=== PATIENT | female | born 1970 | race American Indian/Alaskan Native ===

== ENCOUNTER 2017-09-27 16:21 | Emergency (ER) | payer OTHER ==
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
[2017-09-27] MEDS ORDERED: FLEXERIL PO ONE (21:08)
[2017-09-27] MEDS ORDERED: NORCO 5/325 PO ONE (21:08)
[2017-09-28 00:51] VITALS: BP 132/87
== END 2017-09-28 00:51 | disposition home or self-care (01) ==
LOC: ED 16:21
DX: S10.93XA Contusion of unspecified part of neck, initial encounter (principal); N64.4 Mastodynia; M54.5 Low back pain; I10 Essential (primary) hypertension; Z79.82 Long term (current) use of aspirin; V89.2XXA Person injured in unspecified motor-vehicle accident, traffic, initial encounter; Y93.89 Activity, other specified; Y92.89 Other specified places as the place of occurrence of the external cause; Y99.8 Other external cause status
CPT/HCPCS: 99282

== ENCOUNTER 2018-09-05 20:54 | Inpatient (IN) | payer SELFPAY ==
--- NOTE | 2018-09-05 21:02 | Emergency Department Report ---
ED Neuro Deficit HPI - General Chief Complaint: Neuro Symptoms/Deficit Stated Complaint: STROKE Source: patient, EMS Mode of arrival: Stretcher Limitations: No Limitations - Related Data Home Medications: Previous Rx's Medication Instructions Recorded Last Taken Type Aspirin [Aspirin TAB] 325 mg PO QDAY #30 tablet 09/24/14 Unknown Rx Lisinopril [Zestril TAB] 30 mg PO QDAY #30 tablet 09/24/14 Unknown Rx Simvastatin (Nf) [Zocor TAB] 20 mg PO QHS #30 tablet 09/24/14 Unknown Rx amLODIPine [Norvasc] 10 mg PO QDAY #30 tablet 09/24/14 Unknown Rx Ibuprofen [Motrin] 800 mg PO Q8HR PRN #12 tablet 09/27/17 Unknown Rx Methocarbamol [Robaxin TAB] 750 mg PO Q8H PRN #12 tablet 09/27/17 Unknown Rx Allergies/Adverse Reactions: Allergies Allergy/AdvReac Type Severity Reaction Status Date / Time No Known Allergies Allergy Verified 09/27/17 16:32 ED Review of Systems ROS: Stated complaint: STROKE Other details as noted in HPI ED Past Medical Hx - Past Medical History Hx Hypertension: Yes Hx Congestive Heart Failure: No Hx Diabetes: No Hx Asthma: No Hx COPD: No Hx HIV: No - Surgical History Additional Surgical History: breast reduction - Social History Smoking Status: Never Smoker Substance Use Type: None - Medications Home Medications: Home Medications Medication Instructions Recorded Confirmed Last Taken Type Aspirin [Aspirin TAB] 325 mg PO QDAY #30 tablet 09/24/14 Unknown Rx Lisinopril [Zestril TAB] 30 mg PO QDAY #30 tablet 09/24/14 Unknown Rx Simvastatin (Nf) [Zocor TAB] 20 mg PO QHS #30 tablet 09/24/14 Unknown Rx amLODIPine [Norvasc] 10 mg PO QDAY #30 tablet 09/24/14 Unknown Rx Ibuprofen [Motrin] 800 mg PO Q8HR PRN #12 tablet 09/27/17 Unknown Rx Methocarbamol [Robaxin TAB] 750 mg PO Q8H PRN #12 tablet 09/27/17 Unknown Rx ED Neuro Physical Exam - General Limitations: No Limitations Suspected Stroke: Yes - NIHSS Assessment Interval: Baseline 1a. Level of Consciousness: alert/keenly responsive 1b. LOC Questions: answers both correctly 1c. LOC Commands: performs tasks correctly 2. Best Gaze: normal 3. Visual: no visual loss 4. Facial Palsy: normal symmetrical movement 5b. Motor Arm Right: no drift 5a. Motor Arm Left: no drift 6a. Motor Leg Left: no drift 6b. Motor Leg Right: no drift 7. Limb Ataxia: absent 8. Sensory: normal 9. Best Language: no aphasia 10. Dysarthria: normal 11. Extinction/Inattention: no abnormality Total Score: 0 Stroke Severity: No Stroke Symptoms - Medical Decision Making [facility] Date of Service: 09/05/18 Impression: TIA vs small stroke: Patient had about an hour of left sided weakness/numbness. Symptoms have resolved therefore no acute intervention but recommend further work up. - - - Not a tpa candidate due to: symptoms have resolved Presentation is not suggestive of Large Vessel Occlusive Disease. Thrombectomy would not be recommended. Differential Diagnosis: 1. Cardioembolic 2. Small vessel disease/lacune 3. Thromboembolic, [id number] mechanism 4. Hypercoagulable state-related infarct 5. Transient ischemic attack Comments: LKN: 20:00 Door time: 20:54 [facility] contacted: 20:48 [facility] at bedside:20:53 NIHSS assessment time: 20:53 Recommendations: -ASA -Permissive htn up to 220/120 -Check Hgb A1c and lipid panel -dysphagia screen -Telemetry -Glucose control per primary team, avoid hypo- and hyperglycemia -DVT prophylaxis -PT/OT/Speech Inpatient neurology consultation Inpatient stroke evaluation as per Neurology/ Internal Medicine Discussed with ED MD Please call with questions Micaela Sellers, [facility] #[phone] --------- CC speech changes and left sided weakness/numbness History of Present Illness 48 yo F with history of stroke with mild residual left sided weakness who presents with worsening of her left sided weakness/numbness and slurred speech that started at 20:00. She was having an argument with a family member and noticed that change i her left hand in the it was weaker and numb. While on the way she noticed her symptoms improve in the ambulance and now feels back to her baseline. Diagnostic: CT head: pending Exam: NIHSS score: 0 Medical Decision Making: - Extensive number of diagnosis or management options are considered above. - Extensive amount of complex data reviewed. - High risk of complication and/or morbidity or mortality are associated with differential diagnostic considerations above. - There may be Uncertain outcome and increased probability of prolonged functional impairment or high probability of severe prolonged functional impairment associated with some of these differential diagnosis. Medical Data Reviewed: 1.Data reviewed include clinical labs, radiology, Medical Tests; 2.Tests results discussed w/performing or interpreting physician; 3.Obtaining/reviewing old medical records; 4.Obtaining case history from another source; 5.Independent review of image, tracing or specimen. Patient was informed the Neurology Consult would happen via telehealth (remote video) and consented to receiving care in this manner. Critical care attestation.: If time is entered above; I have spent that time in minutes in the direct care of this critically ill patient, excluding procedure time. ED Disposition Clinical Impression: CVA (cerebral infarction) Disposition: DC-09 OP ADMIT IP TO THIS HOSP Is pt being admited?: Yes Condition: Stable
[2018-09-05 21:29] LABS: Basophils # (Auto) 0.1 K/mm3 (0.0-0.1); Basophils % (Auto) 0.7 % (0.0-1.8); Eosinophils # (Auto) 0.1 K/mm3 (0.0-0.4); Eosinophils % (Auto) 1.5 % (0.0-4.3); Hematocrit 41.6 % (30.3-42.9); Hemoglobin 14.4 gm/dl (10.1-14.3); Lymphocytes # (Auto) 1.2 K/mm3 (1.2-5.4); Lymphocytes % (Auto) 17.8 % (13.4-35.0); Mean Corpuscular HGB Conc 35 % (30-34); Mean Corpuscular Hemoglobin 30 pg (28-32); Mean Corpuscular Volume 88 fl (79-97); Monocytes # (Auto) 0.3 K/mm3 (0.0-0.8); Monocytes % (Auto) 4.5 % (0.0-7.3); Platelet Count 354 K/mm3 (140-440); Red Blood Count 4.73 M/mm3 (3.65-5.03); Red Cell Distribution Width 12.7 % (13.2-15.2)
--- NOTE | 2018-09-05 21:32 | Cat Scan Report ---
PROCEDURE: CT HEAD/BRAIN WO CON TECHNIQUE: CT head without contrast HISTORY: neuro deficits <6hrs or sx present upon awakening COMPARISONS: FINDINGS: No acute intra or extra-axial hemorrhage identified. No evidence for midline shift or mass effect. Ve ntricles and sulci are within normal limits. Mild asymmetry noted of the lateral ventricles. Bony myra varium is intact. IMPRESSION: Negative CT head This document is electronically signed by Sundar Alan MD., September 05 2018 09:30:03 PM ET
[2018-09-05 21:40] LABS: INR 0.84 (0.87-1.13); Partial Thromboplastin Time 31.6 Sec. (24.2-36.6)
[2018-09-05 22:07] LABS: BUN/Creatinine Ratio 14; Blood Urea Nitrogen 35 mg/dL (7-17); Hemolysis Index 6
[2018-09-05] MEDS ORDERED: BABY ASPIRIN PO ONE (22:14)
[2018-09-05] MEDS ORDERED: NACL 0.9% 1000 ML 1,000 ML IV ONE (22:19)
[2018-09-05] MEDS ORDERED: HumuLIN R IV ONE (22:19)
--- NOTE | 2018-09-05 22:28 | Emergency Department Report ---
ED Neuro Deficit HPI - General Chief Complaint: Neuro Symptoms/Deficit Stated Complaint: STROKE Time Seen by Provider: 09/05/18 20:59 Source: patient, EMS Mode of arrival: Stretcher Limitations: No Limitations - History of Present Illness Initial Comments: CC: "I knew I had a stroke." HPI: Mrs. Emmanuel is a 48 yo female with hx fo CVA, HTN and DM who presents with left sided weakness, facial droop and trouble with speech suddenly at 8:00 PM. The symptoms occurred while she was yelling at her daughter's to get ready for bed. She had weakness and numbness in her hand initially. Symptoms also observed by EMS but markedly improved upon arrival. Denies headache. Denies chest pain. Had been in normal state of health. She feels as if she is getting better. Location: speech, left face, left arm Presenting Symptoms: Present: Weak/Paralyzed One Side, Facial Droop/Numbness, Unable to Speak Clearly History of same: Yes Place: home Severity: moderate Quality: weak Improves With: time On Anticoagulants: No Context: sudden onset Associated Symptoms: denies other symptoms Treatments Prior to Arrival: oxygen - Related Data Home Medications: Previous Rx's Medication Instructions Recorded Last Taken Type Aspirin [Aspirin TAB] 325 mg PO QDAY #30 tablet 09/24/14 Unknown Rx Lisinopril [Zestril TAB] 30 mg PO QDAY #30 tablet 09/24/14 Unknown Rx Simvastatin (Nf) [Zocor TAB] 20 mg PO QHS #30 tablet 09/24/14 Unknown Rx amLODIPine [Norvasc] 10 mg PO QDAY #30 tablet 09/24/14 Unknown Rx Ibuprofen [Motrin] 800 mg PO Q8HR PRN #12 tablet 09/27/17 Unknown Rx Methocarbamol [Robaxin TAB] 750 mg PO Q8H PRN #12 tablet 09/27/17 Unknown Rx Allergies/Adverse Reactions: Allergies Allergy/AdvReac Type Severity Reaction Status Date / Time No Known Allergies Allergy Verified 09/27/17 16:32 ED Review of Systems ROS: Stated complaint: STROKE Other details as noted in HPI Comment: All other systems reviewed and negative Constitutional: denies: fever, malaise Respiratory: denies: cough Cardiovascular: denies: chest pain ED Past Medical Hx - Past Medical History Previous Medical History?: Yes Hx Hypertension: Yes Hx Congestive Heart Failure: No Hx Diabetes: No Hx Asthma: No Hx COPD: No Hx HIV: No - Surgical History Past Surgical History?: Yes Additional Surgical History: breast reduction - Family History Family history: other (unknown per patient) - Social History Smoking Status: Never Smoker Substance Use Type: None Other Social History: She works in a warehouse, she lives with her and 2 daughters - Medications Home Medications: Home Medications Medication Instructions Recorded Confirmed Last Taken Type Aspirin [Aspirin TAB] 325 mg PO QDAY #30 tablet 09/24/14 Unknown Rx Lisinopril [Zestril TAB] 30 mg PO QDAY #30 tablet 09/24/14 Unknown Rx Simvastatin (Nf) [Zocor TAB] 20 mg PO QHS #30 tablet 09/24/14 Unknown Rx amLODIPine [Norvasc] 10 mg PO QDAY #30 tablet 09/24/14 Unknown Rx Ibuprofen [Motrin] 800 mg PO Q8HR PRN #12 tablet 09/27/17 Unknown Rx Methocarbamol [Robaxin TAB] 750 mg PO Q8H PRN #12 tablet 09/27/17 Unknown Rx ED Neuro Physical Exam - General Limitations: No Limitations General appearance: alert, in no apparent distress, other (slurred speech and facial droop evident) Suspected Stroke: Yes - Head Head exam: Present: atraumatic, normocephalic - Eye Eye exam: Present: normal appearance - ENT ENT exam: Present: mucous membranes moist - Neck Neck exam: Present: normal inspection, full ROM - Respiratory Respiratory exam: Present: normal lung sounds bilaterally. Absent: respiratory distress, wheezes, rales, rhonchi - Cardiovascular Cardiovascular Exam: Present: regular rate, normal rhythm, normal heart sounds. Absent: systolic murmur, diastolic murmur, rubs, gallop - GI/Abdominal GI/Abdominal exam: Present: soft, normal bowel sounds. Absent: distended, tenderness, guarding, rebound - Extremities Exam Extremities exam: Present: normal inspection - Back Exam Back exam: Present: normal inspection - Neurological Exam Neurological exam: Present: alert, oriented X3 - NIHSS Assessment Interval: Baseline 1a. Level of Consciousness: alert/keenly responsive 1b. LOC Questions: answers both correctly 1c. LOC Commands: performs tasks correctly 2. Best Gaze: normal 3. Visual: no visual loss 4. Facial Palsy: normal symmetrical movement 5b. Motor Arm Right: no drift 5a. Motor Arm Left: no drift 6a. Motor Leg Left: no drift 6b. Motor Leg Right: no drift 7. Limb Ataxia: absent 8. Sensory: normal 9. Best Language: mild/moderate aphasia 10. Dysarthria: mild/moderate dysarthria 11. Extinction/Inattention: no abnormality Total Score: 2 Stroke Severity: Minor Stroke - Psychiatric Psychiatric exam: Present: normal affect, normal mood - Skin Skin exam: Present: warm, dry, intact, normal color. Absent: rash ED Course Vital Signs 09/05/18 09/05/18 21:16 21:45 Pulse Rate 102 H 97 H Respiratory 13 14 Rate Blood Pressure 189/99 189/99 O2 Sat by Pulse 99 100 Oximetry - Lab Data Result diagrams: 09/05/18 21:17 09/05/18 21:17 Lab Results 09/05/18 09/05/18 09/05/18 Range/Units 21:17 21:17 21:17 WBC 6.9 (4.5-11.0) K/mm3 RBC 4.73 (3.65-5.03) M/mm3 Hgb 14.4 H (10.1-14.3) gm/dl Hct 41.6 (30.3-42.9) % MCV 88 (79-97) fl MCH 30 (28-32) pg MCHC 35 H (30-34) % RDW 12.7 L (13.2-15.2) % Plt Count 354 (140-440) K/mm3 Lymph % (Auto) 17.8 (13.4-35.0) % [place] % (Auto) 4.5 (0.0-7.3) % Eos % (Auto) 1.5 (0.0-4.3) % Baso % (Auto) 0.7 (0.0-1.8) % Lymph # 1.2 (1.2-5.4) K/mm3 [place] # 0.3 (0.0-0.8) K/mm3 Eos # 0.1 (0.0-0.4) K/mm3 Baso # 0.1 (0.0-0.1) K/mm3 Seg Neutrophils % 75.5 H (40.0-70.0) % Seg Neutrophils # 5.2 (1.8-7.7) K/mm3 PT 12.0 L (12.2-14.9) Sec. INR 0.84 L (0.87-1.13) APTT 31.6 (24.2-36.6) Sec. Thrombin Time (15.1-19.6) Sec. Sodium 124 L (137-145) mmol/L Potassium 3.0 L (3.6-5.0) mmol/L Chloride 81.1 L (98-107) mmol/L Carbon Dioxide 25 (22-30) mmol/L Anion Gap 21 mmol/L BUN 35 H (7-17) mg/dL Creatinine 2.5 H (0.7-1.2) mg/dL Estimated GFR 25 ml/min BUN/Creatinine Ratio 14 % Glucose 1058 H* (65-100) mg/dL Calcium 9.0 (8.4-10.2) mg/dL Troponin T < 0.010 (0.00-0.029) ng/mL 09/05/18 Range/Units 21:17 WBC (4.5-11.0) K/mm3 RBC (3.65-5.03) M/mm3 Hgb (10.1-14.3) gm/dl Hct (30.3-42.9) % MCV (79-97) fl MCH (28-32) pg MCHC (30-34) % RDW (13.2-15.2) % Plt Count (140-440) K/mm3 Lymph % (Auto) (13.4-35.0) % [place] % (Auto) (0.0-7.3) % Eos % (Auto) (0.0-4.3) % Baso % (Auto) (0.0-1.8) % Lymph # (1.2-5.4) K/mm3 [place] # (0.0-0.8) K/mm3 Eos # (0.0-0.4) K/mm3 Baso # (0.0-0.1) K/mm3 Seg Neutrophils % (40.0-70.0) % Seg Neutrophils # (1.8-7.7) K/mm3 PT (12.2-14.9) Sec. INR (0.87-1.13) APTT (24.2-36.6) Sec. Thrombin Time 19.3 (15.1-19.6) Sec. Sodium (137-145) mmol/L Potassium (3.6-5.0) mmol/L Chloride (98-107) mmol/L Carbon Dioxide (22-30) mmol/L Anion Gap mmol/L BUN (7-17) mg/dL Creatinine (0.7-1.2) mg/dL Estimated GFR ml/min BUN/Creatinine Ratio % Glucose (65-100) mg/dL Calcium (8.4-10.2) mg/dL Troponin T (0.00-0.029) ng/mL 09/05/18 22:32 EKG obtained 2144 Normal sinus rhythm rate 95 beats a minute normal axis normal intervals no ST-T signs of ischemia positive LVH - Medical Decision Making Mrs. Emmanuel presents with TIA and hyperosmolar hyperglycemic syndrome. HHS Due to rapidly improving symptoms, TPA is not indicated. Secondly, I suspect neurological symptoms will improve with control of severe hyperglycemia. Hyperglycemia address with IV fluid and regular insulin. Admitted to the hospitalist service in fair condition. Given aspirin. Severely elevated blood pressure addressed with IV labetalol. Critical Care Time: Yes Critical care time in (mins) excluding proc time.: 40 Critical care attestation.: If time is entered above; I have spent that time in minutes in the direct care o f this critically ill patient, excluding procedure time. 40 minutes of critical care time excluding procedures were used in the care of the patient. Patient required multiple assessments and interventions. I reviewed the electronic medical record. I spoke with consultants involved in the care of the patient. I considered a stretcher immediately. I obtained history from EMS. I performed in a stroke scale alongside till a neurologist. I reassessed patient upon return from CT. ED Disposition Clinical Impression: CVA (cerebral infarction), TIA (transient ischemic attack), ERENDIRA (acute kidney injury), Hyperglycemic hyperosmolar nonketotic coma Disposition: 09 OP ADMIT IP TO THIS HOSP Is pt being admited?: Yes Does the pt Need Aspirin: No Condition: Stable
[2018-09-05] MEDS ORDERED: NORMODYNE IV ONE (22:30)
[2018-09-05] MEDS ORDERED: HumuLIN R 100 UNITS in NACL 0.9% 99 ML IV SCH (23:00)
[2018-09-05] MEDS ORDERED: DULCOLAX PR PRN (23:18)
[2018-09-05] MEDS ORDERED: REGLAN IV PRN (23:18)
[2018-09-05] MEDS ORDERED: ZOFRAN IV PRN (23:18)
[2018-09-05] MEDS ORDERED: TYLENOL PO PRN (23:18)
[2018-09-05] MEDS ORDERED: SODIUM CHLORIDE FLUSH SYRINGE 10 ML IV PRN (23:18)
[2018-09-05] MEDS ORDERED: MILK OF MAGNESIA PO PRN (23:18)
[2018-09-05] MEDS ORDERED: D50W (25GM) Syringe IV PRN (23:22)
[2018-09-05] MEDS ORDERED: APRESOLINE IV PRN (23:24)
--- NOTE | 2018-09-05 23:29 | History and Physical Report ---
History of Present Illness Date of examination: 09/05/18 History of present illness: 48-year-old woman with a history of hypertension, hyperlipidemia, diabetes, patient in denial that she does not have diabetes because emergency room with complaint of slurred speech and left arm weakness. She is brought to the emergency room, her symptoms have improved Review of systems Constitutional: no weight loss, chills, fever Ears, eyes, nose, mouth and throat: no nasal congestion, no nasal discharge, no sinus pressure, no vision change, no red eye. Neck: No neck pain or rigidity. Cardiovascular: no palpitations, chest pain Respiratory: no cough, shortness of breath Gastrointestinal: no hematochezia, abdominal pain Genitourinary : no frequency , no hematuria Musculoskeletal: no joint swelling or muscle ache Integumentary: no rash, no pruritis Neurological: no parathesias Endocrine: no cold or heat intolerance, no polyuria or polydipsia Hematologic/Lymphatic: no easy bruising, no easy bleeding, no gland swelling Allergic/Immunologic: no urticaria, no angioedema. PAST MEDICAL HISTORY:hypertension, hyperlipidemia, diabetes PAST SURGICAL HISTORY: Tubal ligation, breast reduction SOCIAL HISTORY: Denies alcohol, drugs, tobacco FAMILY HISTORY: Hypertension Medications and Allergies Allergies Allergy/AdvReac Type Severity Reaction Status Date / Time No Known Allergies Allergy Verified 09/27/17 16:32 Home Medications Medication Instructions Recorded Confirmed Last Taken Type Aspirin [Aspirin TAB] 325 mg PO QDAY #30 tablet 09/24/14 Unknown Rx Lisinopril [Zestril TAB] 30 mg PO QDAY #30 tablet 09/24/14 Unknown Rx Simvastatin (Nf) [Zocor TAB] 20 mg PO QHS #30 tablet 09/24/14 Unknown Rx amLODIPine [Norvasc] 10 mg PO QDAY #30 tablet 09/24/14 Unknown Rx Ibuprofen [Motrin] 800 mg PO Q8HR PRN #12 tablet 09/27/17 Unknown Rx Methocarbamol [Robaxin TAB] 750 mg PO Q8H PRN #12 tablet 09/27/17 Unknown Rx Active Meds: Active Medications Insulin Human Regular 100 (units/ Sodium Chloride) 100 mls @ 7 mls/hr IV TITR CHIDI; Protocol Exam - Physical Exam Narrative exam: General Apperance: The patient lying in bed, breathing comfortable HEENT: Normocephalic, atraumatic. Pupils equally round and reactive to light, EOMI, no sclericterus or JVD or thyromegaly or nodule. , no carotid bruit, mucous membranes moist, no exudate or erythema Heart: S1-S2, regular is rhythm Lungs: Clear to auscultation bilaterally, breathing comfortable Abdomen: Positive bowel sounds, soft, nontender, nondistended, no organomegaly Extremities: No edema cyanosis clubbing Skin: no rash, nodule, warm and dry Neuro: cranial nerves 2-12 intact, speech is fluent, motor/sensory intact - Constitutional Vitals: Temp Pulse Resp BP Pulse Ox 89 16 166/97 98 09/05/18 23:15 09/05/18 23:15 09/05/18 23:15 09/05/18 23:15 Results - Labs CBC & Chem 7: 09/05/18 21:17 09/05/18 21:17 Labs: Abnormal lab results 09/05/18 09/05/18 09/05/18 Range/Units 21:17 21:17 21:17 Hgb 14.4 H (10.1-14.3) gm/dl MCHC 35 H (30-34) % RDW 12.7 L (13.2-15.2) % Seg Neutrophils % 75.5 H (40.0-70.0) % PT 12.0 L (12.2-14.9) Sec. INR 0.84 L (0.87-1.13) Sodium 124 L (137-145) mmol/L Potassium 3.0 L (3.6-5.0) mmol/L Chloride 81.1 L (98-107) mmol/L BUN 35 H (7-17) mg/dL Creatinine 2.5 H (0.7-1.2) mg/dL Glucose 1058 H* (65-100) mg/dL - Imaging and Cardiology CT Scan - head: report reviewed Assessment and Plan Assessment TIA HONK Acute renal failure Pseudohyponatremia Hypokalemia hypertension uncontrolled Hyperlipidemia Plan Admit to medicine Obtain MRI of the head, carotid Doppler, echo Do neurochecks, swallow screen Consult neurology, PT/OT, monitor kidney function Start DKA protocol with insulin drip, nothing by mouth Monitor fingersticks, electrolytes, check hemoglobin A1c Continue appropriate outpatient medication, DVT prophylaxis
[2018-09-05] MEDS ORDERED: K-DUR PO ONE ×2 (23:35→23:58)
[2018-09-05] MEDS ORDERED: D5/0.45NS 1,000 ML IV SCH (23:45)
[2018-09-06] MEDS ORDERED: K-DUR PO ONE ×3 (00:25→09:37)
[2018-09-06 00:56] LABS: Bilirubin,Urine NEG (Negative); Blood,Urine SM (Negative); Color,Urine Colorless (Yellow); Urobilinogen,Urine < 2.0 mg/dL (<2.0)
[2018-09-06] MEDS ORDERED: D5W/0.45% NACL/KCL 20 MEQ 20 MEQ/1,000 ML BAG IV SCH (01:00)
[2018-09-06] MEDS ORDERED: KCL 10MEQ/100ML 40 MEQ/400 ML BAG IV ONE (01:04)
[2018-09-06] MEDS ORDERED: NACL 0.9% 500 ML 500 ML ONE (01:14)
[2018-09-06] MEDS: KCL 10MEQ/100ML 10 MEQ/100 ML BAG IV SCH ×4 (01:19→05:17)
[2018-09-06] MEDS ORDERED: NACL 0.9% 500 ML IV ONE (03:00)
[2018-09-06 03:31] LABS: Calcium 8.5 mg/dL (8.4-10.2)
[2018-09-06] MEDS ORDERED: NACL 0.9% 250ML 250 ML ONE (03:31)
[2018-09-06] MEDS ORDERED: NACL 0.9% 250ML 250 ML IV ONE (04:23)
[2018-09-06 04:46] LABS: Calcium 8.3 mg/dL (8.4-10.2)
[2018-09-06 05:35] LABS: Chol/HDL Ratio 4.66 %
[2018-09-06] MEDS ORDERED: D5W/0.45% NACL/KCL 20 MEQ 20 MEQ/1,000 ML BAG IV ONE (05:54)
--- NOTE | 2018-09-06 08:35 | Progress Note ---
Assessment and Plan Assessment and plan: --Hyperosmolar nonketotic state; On insulin drip, patient's blood sugars aren't reasonable levels, no acidosis, no ketosis Start ADA diet, DC insulin drip, Accu-Chek sliding scale coverage, long-acting insulin start with 20 units twice a day,increase as needed, change IV fluids to normal saline Check hemoglobin A1c, Diabetic diet, nutrition consult --Hyponatremia; probably pseudohyponatremia secondary to hyperglycemia --Hypokalemia; replace per protocol and monitor levels --TIA/CVA; Neuro workup is in progress, continue neuro checks Swallow screen, PT and OT rehabilitation Follow neurology evaluation and recommendations --Acute kidney injury; secondary to ATN Vigorous IV hydration, monitor renal function, avoid nephrotoxins Consistent nephrology evaluation if needed --Dyslipidemia; lipid-lowering medications, low-cholesterol diet --Malignant hypertension; present on admission Blood pressures moderate control, continue current antihypertensives Add when necessary medications --Obesity; BMI 30.2, advised weight reduction when medically stable --DVT prophylaxis; Lovenox Closely monitor the patient and adjust the management as needed If patient feels better next 1 or 2 hours We will downgrade from ICU to telemetry/medical floor Critical care time 35 minutes History Interval history: Patient seen and examined in ER awaiting bed assignment Admitted with hyperosmolar nonketotic state on insulin drip Patient's blood sugars are reasonable level Also had stuttering speech and left arm weakness Symptoms significantly improved Patient feels better mild headache Weakness significantly improved Alert awake oriented Vital signs noted Hospitalist Physical - Constitutional Vitals: Temp Pulse Resp BP Pulse Ox 81 15 156/88 99 09/06/18 08:08 09/06/18 08:08 09/06/18 08:08 09/06/18 08:08 General appearance: Present: no acute distress, well-nourished, obese - EENT Eyes: Present: PERRL, EOM intact - Neck Neck: Present: supple, normal ROM - Respiratory Respiratory effort: normal Respiratory: bilateral: diminished, negative: rales, rhonchi, wheezing - Cardiovascular Rhythm: regular Heart Sounds: Present: S1 & S2 - Extremities Extremities: no ischemia, No edema - Abdominal General gastrointestinal: soft, non-tender, non-distended, normal bowel sounds - Integumentary Integumentary: Present: clear, warm - Psychiatric Psychiatric: appropriate mood/affect, cooperative - Neurologic Neurologic: other (very minimal left arm weakness speech clear) Results - Labs CBC & Chem 7: 09/05/18 21:17 09/06/18 16:56 Labs: Laboratory Last Values WBC 6.9 K/mm3 (4.5-11.0) 09/05/18 21:17 RBC 4.73 M/mm3 (3.65-5.03) 09/05/18 21:17 Hgb 14.4 gm/dl (10.1-14.3) H 09/05/18 21:17 Hct 41.6 % (30.3-42.9) 09/05/18 21:17 MCV 88 fl (79-97) 09/05/18 21:17 MCH 30 pg (28-32) 09/05/18 21:17 MCHC 35 % (30-34) H 09/05/18 21:17 RDW 12.7 % (13.2-15.2) L 09/05/18 21:17 Plt Count 354 K/mm3 (140-440) 09/05/18 21:17 Lymph % (Auto) 17.8 % (13.4-35.0) 09/05/18 21:17 [place] % (Auto) 4.5 % (0.0-7.3) 09/05/18 21:17 Eos % (Auto) 1.5 % (0.0-4.3) 09/05/18 21:17 Baso % (Auto) 0.7 % (0.0-1.8) 09/05/18 21:17 Lymph # 1.2 K/mm3 (1.2-5.4) 09/05/18 21:17 [place] # 0.3 K/mm3 (0.0-0.8) 09/05/18 21:17 Eos # 0.1 K/mm3 (0.0-0.4) 09/05/18 21:17 Baso # 0.1 K/mm3 (0.0-0.1) 09/05/18 21:17 Seg Neutrophils % 75.5 % (40.0-70.0) H 09/05/18 21:17 Seg Neutrophils # 5.2 K/mm3 (1.8-7.7) 09/05/18 21:17 PT 12.0 Sec. (12.2-14.9) L 09/05/18 21:17 INR 0.84 (0.87-1.13) L 09/05/18 21:17 APTT 31.6 Sec. (24.2-36.6) 09/05/18 21:17 Thrombin Time 19.3 Sec. (15.1-19.6) 09/05/18 21:17 Sodium 137 mmol/L (137-145) 09/06/18 04:06 Potassium 3.0 mmol/L (3.6-5.0) L 09/06/18 04:06 Chloride 97.1 mmol/L (98-107) L 09/06/18 04:06 Carbon Dioxide 25 mmol/L (22-30) 09/06/18 04:06 Anion Gap 18 mmol/L 09/06/18 04:06 BUN 32 mg/dL (7-17) H 09/06/18 04:06 Creatinine 1.8 mg/dL (0.7-1.2) H 09/06/18 04:06 Estimated GFR 36 ml/min 09/06/18 04:06 BUN/Creatinine Ratio 18 % 09/06/18 04:06 Glucose 348 mg/dL (65-100) H 09/06/18 04:06 POC Glucose 201 (70-105) H 09/06/18 07:30 Hemoglobin A1c 14.0 % (4-6) H 09/05/18 23:52 Calcium 8.3 mg/dL (8.4-10.2) L 09/06/18 04:06 Phosphorus 2.30 mg/dL (2.5-4.5) L 09/05/18 00:00 Magnesium 2.50 mg/dL (1.7-2.3) H 09/05/18 00:00 Troponin T < 0.010 ng/mL (0.00-0.029) 09/05/18 21:17 Triglycerides 398 mg/dL (2-149) H 09/06/18 04:06 Cholesterol 112 mg/dL (50-199) 09/06/18 04:06 LDL Cholesterol Direct 42 mg/dL (50-130) L 09/06/18 04:06 HDL Cholesterol 24 mg/dL (40-59) L 09/06/18 04:06 Cholesterol/HDL Ratio 4.66 % 09/06/18 04:06 Urine Color Colorless (Yellow) 09/05/18 23:00 Urine Turbidity Clear (Clear) 09/05/18 23:00 Urine pH 7.0 (5.0-7.0) 09/05/18 23:00 Ur Specific [place] 1.020 (1.003-1.030) 09/05/18 23:00 Urine Protein 100 mg/dl mg/dL (Negative) 09/05/18 23:00 Urine Glucose (UA) >=500 mg/dL (Negative) 09/05/18 23:00 Urine Ketones Neg mg/dL (Negative) 09/05/18 23:00 Urine Blood Sm (Negative) 09/05/18 23:00 Urine Nitrite Neg (Negative) 09/05/18 23:00 Urine Bilirubin Neg (Negative) 09/05/18 23:00 Urine Urobilinogen < 2.0 mg/dL (<2.0) 09/05/18 23:00 Ur Leukocyte Esterase Neg (Negative) 09/05/18 23:00 Urine WBC (Auto) 1.0 /HPF (0.0-6.0) 09/05/18 23:00 Urine RBC (Auto) 2.0 /HPF (0.0-6.0) 09/05/18 23:00 U Epithel Cells (Auto) < 1.0 /HPF (0-13.0) 09/05/18 23:00 Active Medications - Current Medications Current Medications: Generic Name Dose Route Start Last Admin Trade Name Freq PRN Reason Stop Dose Admin Acetaminophen 650 mg 09/05/18 23:18 Tylenol PO Q4H PRN Pain, Mild (1-3) Aspirin 325 mg 09/06/18 10:00 Aspirin PO QDAY [facility] Atorvastatin Calcium 80 mg 09/06/18 10:00 Lipitor PO DAILY [facility] Bisacodyl 10 mg 09/05/18 23:18 Dulcolax [place] QDAY PRN Constipation Dextrose 0 ml 09/05/18 23:22 D50w (25gm) Syringe IV ONCE PRN Hypoglycemia Enoxaparin Sodium 30 mg 09/06/18 10:00 Lovenox SUB-Q QDAY [facility] Hydralazine HCl 5 mg 09/05/18 23:24 Apresoline IV Q6H PRN Hypertension Sodium Chloride 1,000 mls @ 100 mls/hr 09/05/18 23:45 Nacl 0.9% 1000 Ml IV DIRECT CHIDI Insulin Human Isoph/Insulin Regular 10 unit 09/06/18 08:29 Humulin 70/30 SUB-Q 09/06/18 08:30 ONCE ONE Insulin Human Isoph/Insulin Regular 20 unit 09/06/18 17:00 Humulin 70/30 SUB-Q BIDDIAB [facility] Insulin Human Lispro 0 unit 09/06/18 11:30 Humalog SUB-Q ACHS [facility] Protocol Magnesium Hydroxide 30 ml 09/05/18 23:18 Milk Of Magnesia PO Q4H PRN Constipation Metoclopramide HCl 5 mg 09/05/18 23:18 Reglan IV Q6H PRN Nausea And Vomiting Ondansetron HCl 4 mg 09/05/18 23:18 Zofran IV Q8H PRN Nausea And Vomiting Potassium Chloride 40 meq 09/06/18 08:30 K-Dur PO 09/06/18 08:31 ONCE ONE Sodium Chloride 10 ml 09/05/18 23:18 Sodium Chloride Flush Syringe 10 Ml IV PRN PRN LINE FLUSH
[2018-09-06] MEDS ORDERED: ASPIRIN ONE (09:36)
[2018-09-06] MEDS ORDERED: LOVENOX SUB-Q ONE (09:37)
[2018-09-06] MEDS ORDERED: HumuLIN R ONE (09:38)
[2018-09-06] MEDS: LOVENOX SUB-Q SCH (10:05)
[2018-09-06] MEDS: ASPIRIN PO SCH (10:05)
[2018-09-06] MEDS ORDERED: DILAUDID IV PRN (12:18)
[2018-09-06] MEDS ORDERED: APRESOLINE ONE (12:23)
--- NOTE | 2018-09-06 12:36 | Consultation ---
History of Present Illness Consult date: 09/06/18 Requesting physician: GINO HARRY History of present illness: Mrs. Emmanuel is a 48 yo female with hx fo CVA, HTN and DM who presents with left sided weakness, facial droop and trouble with speech suddenly at 8:00 PM. The symptoms occurred while she was yelling at her daughter's to get ready for bed. She had weakness and numbness in her hand initially. Symptoms also observed by EMS but markedly improved upon arrival. Denies headache. Denies chest pain. Had been in normal state of health. She feels as if she is getting better I was consulted for critical care management. At the time of my evaluation, she had no neurologic eficits. Currently on an insulin infusion for hyperosmolar, non ketotic state. Patient was seen and examined. Vitals, labs, medications, chart and imaging reviewed. Review of systems Constitutional: no weight loss, chills, fever Ears, eyes, nose, mouth and throat: no nasal cono sinus pressure, no vision change, no red eye. Neck: No neck pain or rigidity. Cardiovascular: no palpitations, chest pain Respiratory: no cough, shortness of breath Gastrointestinal: no hematochezia, abdominal pain Genitourinary : no frequency , no hematuria Musculoskeletal: no joint swelling or muscle ache Integumentary: no rash, no pruritis Neurological: no parathesias Endocrine: no cold or heat intolerance, no polyuria or polydipsia Hematologic/Lymphatic: no easy bruising, no easy bleeding, no gland swelling Allergic/Immunologic: no urticaria, no angioedema. Previous Medical History?: Yes Hx Hypertension: Yes Hx Congestive Heart Failure: No Hx Diabetes: No Hx Asthma: No Hx COPD: No Hx HIV: No Past Surgical History?: Yes Additional Surgical History: breast reduction Family history: other (unknown per patient) Smoking Status: Never Smoker Substance Use Type: None Other Social History: She works in a warehouse, she lives with her and 2 daughters Medications and Allergies Allergies Allergy/AdvReac Type Severity Reaction Status Date / Time No Known Allergies Allergy Verified 09/27/17 16:32 Home Medications Medication Instructions Recorded Confirmed Last Taken Type amLODIPine [Norvasc] 10 mg PO QDAY #30 tablet 09/24/14 09/06/18 Unknown Rx Amlodipine Besylate 10 mg PO DAILY 09/06/18 09/06/18 Unknown History AtorvaSTATin [Lipitor] 80 mg PO DAILY 09/06/18 09/06/18 Unknown History hydroCHLOROthiazide [HCTZ] 25 mg PO QAM 09/06/18 09/06/18 Unknown History Active Meds: Active Medications Acetaminophen (Tylenol) 650 mg PO Q4H PRN PRN Reason: Pain, Mild (1-3) Aspirin (Aspirin) 325 mg PO QDAY [facility] Last Admin: 09/06/18 10:05 Dose: 325 mg Documented by: Atorvastatin Calcium (Lipitor) 80 mg PO DAILY [facility] Last Admin: 09/06/18 10:05 Dose: 80 mg Documented by: Bisacodyl (Dulcolax) 10 mg DC QDAY PRN PRN Reason: Constipation Dextrose (D50w (25gm) Syringe) 0 ml IV ONCE PRN PRN Reason: Hypoglycemia Enoxaparin Sodium (Lovenox) 30 mg SUB-Q QDAY [facility] Last Admin: 09/06/18 10:05 Dose: 30 mg Documented by: Hydralazine HCl (Apresoline) 5 mg IV Q6H PRN PRN Reason: Hypertension Last Admin: 09/06/18 12:26 Dose: 5 mg Documented by: Hydromorphone HCl (Dilaudid) 5 mg IV Q6HR PRN PRN Reason: Blood Pressure Sodium Chloride (Nacl 0.9% 1000 Ml) 1,000 mls @ 100 mls/hr IV DIRECT [facility] Insulin Human Isoph/Insulin Regular (Humulin 70/30) 20 unit SUB-Q BIDDIAB [facility] Insulin Human Lispro (Humalog) 0 unit SUB-Q ACHS [facility]; Protocol Magnesium Hydroxide (Milk Of Magnesia) 30 ml PO Q4H PRN PRN Reason: Constipation Metoclopramide HCl (Reglan) 5 mg IV Q6H PRN PRN Reason: Nausea And Vomiting Ondansetron HCl (Zofran) 4 mg IV Q8H PRN PRN Reason: Nausea And Vomiting Sodium Chloride (Sodium Chloride Flush Syringe 10 Ml) 10 ml IV PRN PRN PRN Reason: LINE FLUSH Physical Examination Vital signs: Vital Signs Pulse Resp BP Pulse Ox 102 H 13 189/99 99 09/05/18 21:16 09/05/18 21:16 09/05/18 21:16 09/05/18 21:16 General appearance: no acute distress Eyes: non-icteric ENT: oropharynx moist Neck: supple, no lymphadenopathy, no JVD Effort: normal Ascultation: Bilateral: clear Cardiovascular: regular rate and rhythm (tachycardia), other (S1,S2, no murmurs, gallops or rubs) Gastrointestinal: normoactive bowel sounds, soft, non-tender, non-distended Integumentary: normal Extremities: no cyanosis, no edema, pulses normal, no ischemia or petechiae Musculoskeletal: no deformities normal mental status, non-focal exam, pupils equal and round, CN II-XII normal, motor strength normal and mood appropriate, affect normal Results - Laboratory Findings CBC and BMP: 09/05/18 21:17 09/06/18 22:58 PT/INR, D-dimer PT 12.0 Sec. (12.2-14.9) L 09/05/18 21:17 INR 0.84 (0.87-1.13) L 09/05/18 21:17 Abnormal lab findings: Abnormal Labs 09/05/18 09/05/18 09/05/18 00:00 00:00 21:17 Hgb 14.4 H MCHC 35 H RDW 12.7 L Seg Neutrophils % 75.5 H PT INR Sodium 131 L Potassium 2.8 L* Chloride 86.6 L BUN 37 H Creatinine 2.0 H Glucose 718 H* POC Glucose Hemoglobin A1c Calcium Phosphorus 2.30 L Magnesium 2.50 H Triglycerides LDL Cholesterol Direct HDL Cholesterol 09/05/18 09/05/18 09/05/18 21:17 21:17 23:52 Hgb MCHC RDW Seg Neutrophils % PT 12.0 L INR 0.84 L Sodium 124 L D Potassium 3.0 L Chloride 81.1 L BUN 35 H Creatinine 2.5 H Glucose 1058 H* POC Glucose Hemoglobin A1c 14.0 H Calcium Phosphorus Magnesium Triglycerides LDL Cholesterol Direct HDL Cholesterol 09/06/18 09/06/18 09/06/18 01:25 02:09 02:39 Hgb MCHC RDW Seg Neutrophils % PT INR Sodium 136 L D Potassium 3.0 L Chloride 93.6 L BUN 34 H Creatinine 2.0 H Glucose 461 H POC Glucose 438 H 378 H Hemoglobin A1c Calcium Phosphorus Magnesium Triglycerides LDL Cholesterol Direct HDL Cholesterol 09/06/18 09/06/18 09/06/18 03:13 04:06 04:06 Hgb MCHC RDW Seg Neutrophils % PT INR Sodium Potassium 3.0 L Chloride 97.1 L BUN 32 H Creatinine 1.8 H Glucose 348 H POC Glucose 403 H Hemoglobin A1c Calcium 8.3 L Phosphorus Magnesium Triglycerides 398 H LDL Cholesterol Direct 42 L HDL Cholesterol 24 L 09/06/18 09/06/18 09/06/18 04:31 05:22 06:20 Hgb MCHC RDW Seg Neutrophils % PT INR Sodium Potassium Chloride BUN Creatinine Glucose POC Glucose 294 H 229 H 209 H Hemoglobin A1c Calcium Phosphorus Magnesium Triglycerides LDL Cholesterol Direct HDL Cholesterol 09/06/18 07:30 Hgb MCHC RDW Seg Neutrophils % PT INR Sodium Potassium Chloride BUN Creatinine Glucose POC Glucose 201 H Hemoglobin A1c Calcium Phosphorus Magnesium Triglycerides LDL Cholesterol Direct HDL Cholesterol Assessment and Plan Hyperosmolar nonketotic state Hyponatremia Hypokalemia TIA/CVA Acute kidney injury Dyslipidemia Malignant hypertension; present on admission Obesity; BMI 30.2 -OK to stop insulin infusion per protocol -Weight based, basal bolus insulin therapy -Blood pressure control -VTE prophylaxis -Statin therapy -Steady carb diet -Nutrition consult, diabetic education -Life style modification -IVF, monitor renal function -Replete electrolytes as indicated -Secondary stroke prophylaxis -Neurology consult noted Does not need ICU level care at this time. Thank you for consult. OK to admit step down unit
--- NOTE | 2018-09-06 13:25 | Vascular Lab Report ---
PROCEDURE: VL CAROTID DUPLEX BILAT TECHNIQUE: Duplex Doppler ultrasound of the common, internal and external carotid arteries and the v ertebral arteries was performed bilaterally. Lozano scale imaging, velocity spectral waveform analysis, and color flow Doppler were employed. HISTORY: stroke COMPARISONS: None . Note: Measurement of carotid stenosis is based on flow velocity values that correlate with the [place] Symptomatic Carotid Endarterectomy Trial (NASCET) based stenosis criteria using the internal carotid artery diameter as the denominator for stenosis calculation. FINDINGS: RIGHT carotid artery: Velocities: ICA PSV: 57 cm/sec ICA End diastolic: 18 cm/sec CCA PSV: 81 cm/sec IC/CC ratio: 0.71 Plaque: No obvious plaque formation is noted . RIGHT vertebral artery: Antegrade systolic and diastolic flow LEFT carotid artery: Velocities: ICA PSV: 84 cm/sec ICA End diastolic: 26 cm/sec CCA PSV: 95 cm/sec IC/CC ratio: 1.8 Plaque: No obvious plaque formation is noted. LEFT vertebral artery: Antegrade systolic and diastolic flow IMPRESSION: 1. RIGHT carotid: No hemodynamically significant (less than 50 percent) internal carotid artery travis nosis. 2. LEFT carotid: No hemodynamically significant (less than 50 percent) internal carotid artery sten osis. 3. Vertebral arteries: Bilaterally antegrade. This document is electronically signed by Peter Black MD., September 06 2018 01:23:36 PM ET
[2018-09-06] MEDS ORDERED: HumaLOG SUB-Q ONE (13:33)
[2018-09-06] MEDS: HumaLOG SUB-Q SCH ×2 (13:37→17:44)
[2018-09-06 14:35] LABS: Calcium 8.8 mg/dL (8.4-10.2)
[2018-09-06] MEDS ORDERED: APRESOLINE IV ONE (15:00)
[2018-09-06] MEDS ORDERED: SODIUM PHOSPHATE 45 MMOL in NACL 0.9% 500 ML 500 ML IV ONE (15:00)
--- NOTE | 2018-09-06 15:33 | Progress Note ---
Subjective Date of service: 09/06/18 Interval history: there is history of diabetes and HTN she is on multiple meds and more significant she is on coumadin for heart valve problems... by hx has " thickened hear valves"... the Ct of the head shows multiple very small areas of old white matter small vessel ischemic nothing that psecifically points to cardiac embolus.. she has normal neuro exam plan MRI and more importantly ECHO thanks will follow Objective - Vital Sign Vital Signs - 12hr 09/06/18 09/06/18 09/06/18 03:45 04:00 04:15 Pulse Rate 92 H 89 87 Respiratory 21 15 19 Rate Blood Pressure 150/83 152/82 152/82 Blood Pressure [Left] O2 Sat by Pulse 98 96 97 Oximetry 09/06/18 09/06/18 09/06/18 04:30 04:45 05:00 Pulse Rate 88 89 88 Respiratory 18 18 18 Rate Blood Pressure 148/88 148/88 141/87 Blood Pressure [Left] O2 Sat by Pulse 95 96 96 Oximetry 09/06/18 09/06/18 09/06/18 05:15 05:30 05:45 Pulse Rate 88 86 87 Respiratory 15 15 18 Rate Blood Pressure 141/87 154/92 154/92 Blood Pressure [Left] O2 Sat by Pulse 98 97 Oximetry 09/06/18 09/06/18 09/06/18 06:00 06:15 06:31 Pulse Rate 90 83 87 Respiratory 14 12 15 Rate Blood Pressure 151/89 151/89 169/100 Blood Pressure [Left] O2 Sat by Pulse 96 99 96 Oximetry 09/06/18 09/06/18 09/06/18 06:45 07:00 08:00 Pulse Rate 86 81 Respiratory 23 15 Rate Blood Pressure 169/100 156/88 110/81 Blood Pressure [Left] O2 Sat by Pulse 98 95 95 Oximetry 09/06/18 09/06/18 09/06/18 08:08 08:30 09:00 Pulse Rate 81 Respiratory 15 Rate Blood Pressure 154/93 168/84 Blood Pressure 156/88 [Left] O2 Sat by Pulse 99 97 97 Oximetry 09/06/18 09/06/18 09/06/18 10:46 11:00 11:30 Pulse Rate 88 84 84 Respiratory 16 18 16 Rate Blood Pressure 173/95 137/85 138/86 Blood Pressure [Left] O2 Sat by Pulse 96 94 94 Oximetry 09/06/18 09/06/18 09/06/18 12:00 12:16 12:30 Pulse Rate 88 81 96 H Respiratory 19 17 21 Rate Blood Pressure 168/102 168/102 153/93 Blood Pressure [Left] O2 Sat by Pulse 97 98 97 Oximetry 09/06/18 09/06/18 09/06/18 13:00 13:30 14:42 Pulse Rate 86 103 H Respiratory 16 16 Rate Blood Pressure 152/89 168/100 173/93 Blood Pressure [Left] O2 Sat by Pulse 98 Oximetry - Laboratory Findings CBC and BMP: 09/05/18 21:17 09/06/18 13:59 Abnormal Lab Findings: Abnormal Labs 09/05/18 09/05/18 09/05/18 00:00 00:00 21:17 Hgb 14.4 H MCHC 35 H RDW 12.7 L Seg Neutrophils % 75.5 H PT INR Sodium 131 L Potassium 2.8 L* Chloride 86.6 L BUN 37 H Creatinine 2.0 H Glucose 718 H* POC Glucose Hemoglobin A1c Calcium Phosphorus 2.30 L Magnesium 2.50 H Triglycerides LDL Cholesterol Direct HDL Cholesterol 09/05/18 09/05/18 09/05/18 21:17 21:17 23:52 Hgb MCHC RDW Seg Neutrophils % PT 12.0 L INR 0.84 L Sodium 124 L D Potassium 3.0 L Chloride 81.1 L BUN 35 H Creatinine 2.5 H Glucose 1058 H* POC Glucose Hemoglobin A1c 14.0 H Calcium Phosphorus Magnesium Triglycerides LDL Cholesterol Direct HDL Cholesterol 09/06/18 09/06/18 09/06/18 01:25 02:09 02:39 Hgb MCHC RDW Seg Neutrophils % PT INR Sodium 136 L D Potassium 3.0 L Chloride 93.6 L BUN 34 H Creatinine 2.0 H Glucose 461 H POC Glucose 438 H 378 H Hemoglobin A1c Calcium Phosphorus Magnesium Triglycerides LDL Cholesterol Direct HDL Cholesterol 09/06/18 09/06/18 09/06/18 03:13 04:06 04:06 Hgb MCHC RDW Seg Neutrophils % PT INR Sodium Potassium 3.0 L Chloride 97.1 L BUN 32 H Creatinine 1.8 H Glucose 348 H POC Glucose 403 H Hemoglobin A1c Calcium 8.3 L Phosphorus Magnesium Triglycerides 398 H LDL Cholesterol Direct 42 L HDL Cholesterol 24 L 09/06/18 09/06/18 09/06/18 04:31 05:22 06:20 Hgb MCHC RDW Seg Neutrophils % PT INR Sodium Potassium Chloride BUN Creatinine Glucose POC Glucose 294 H 229 H 209 H Hemoglobin A1c Calcium Phosphorus Magnesium Triglycerides LDL Cholesterol Direct HDL Cholesterol 09/06/18 09/06/18 09/06/18 07:30 09:34 13:09 Hgb MCHC RDW Seg Neutrophils % PT INR Sodium Potassium Chloride BUN Creatinine Glucose POC Glucose 201 H 286 H 282 H Hemoglobin A1c Calcium Phosphorus Magnesium Triglycerides LDL Cholesterol Direct HDL Cholesterol 09/06/18 13:59 Hgb MCHC RDW Seg Neutrophils % PT INR Sodium 136 L Potassium Chloride BUN 26 H Creatinine 1.9 H Glucose 361 H POC Glucose Hemoglobin A1c Calcium Phosphorus 1.60 L D Magnesium Triglycerides LDL Cholesterol Direct HDL Cholesterol
[2018-09-06] MEDS ORDERED: PERCOCET 5/325 PO PRN (15:34)
--- NOTE | 2018-09-06 15:54 | Progress Note ---
Subjective Date of service: 09/06/18 Interval history: see my additional updated dictation on possible seizure and renal disorder this could have been convulsion triggered by hyperglycemia plan EEG and check MRI plan to follow up plan to speak to he is not here at present time Objective - Vital Sign Vital Signs - 12hr 09/06/18 09/06/18 09/06/18 04:00 04:15 04:30 Temperature Pulse Rate 89 87 88 Respiratory 15 19 18 Rate Blood Pressure 152/82 152/82 148/88 Blood Pressure [Left] O2 Sat by Pulse 96 97 95 Oximetry 09/06/18 09/06/18 09/06/18 04:45 05:00 05:15 Temperature Pulse Rate 89 88 88 Respiratory 18 18 15 Rate Blood Pressure 148/88 141/87 141/87 Blood Pressure [Left] O2 Sat by Pulse 96 96 98 Oximetry 09/06/18 09/06/18 09/06/18 05:30 05:45 06:00 Temperature Pulse Rate 86 87 90 Respiratory 15 18 14 Rate Blood Pressure 154/92 154/92 151/89 Blood Pressure [Left] O2 Sat by Pulse 97 96 Oximetry 09/06/18 09/06/18 09/06/18 06:15 06:31 06:45 Temperature Pulse Rate 83 87 86 Respiratory 12 15 23 Rate Blood Pressure 151/89 169/100 169/100 Blood Pressure [Left] O2 Sat by Pulse 99 96 98 Oximetry 09/06/18 09/06/18 09/06/18 07:00 08:00 08:08 Temperature Pulse Rate 81 81 Respiratory 15 15 Rate Blood Pressure 156/88 110/81 Blood Pressure 156/88 [Left] O2 Sat by Pulse 95 95 99 Oximetry 09/06/18 09/06/18 09/06/18 08:30 09:00 10:46 Temperature Pulse Rate 88 Respiratory 16 Rate Blood Pressure 154/93 168/84 173/95 Blood Pressure [Left] O2 Sat by Pulse 97 97 96 Oximetry 09/06/18 09/06/18 09/06/18 11:00 11:30 12:00 Temperature Pulse Rate 84 84 88 Respiratory 18 16 19 Rate Blood Pressure 137/85 138/86 168/102 Blood Pressure [Left] O2 Sat by Pulse 94 94 97 Oximetry 09/06/18 09/06/18 09/06/18 12:16 12:30 13:00 Temperature Pulse Rate 81 96 H 86 Respiratory 17 21 16 Rate Blood Pressure 168/102 153/93 152/89 Blood Pressure [Left] O2 Sat by Pulse 98 97 Oximetry 09/06/18 09/06/18 09/06/18 13:30 13:50 14:00 Temperature Pulse Rate 103 H 96 H 93 H Respiratory 16 21 22 Rate Blood Pressure 168/100 170/93 173/72 Blood Pressure [Left] O2 Sat by Pulse 98 99 95 Oximetry 09/06/18 09/06/18 09/06/18 14:10 14:20 14:30 Temperature Pulse Rate 93 H 88 96 H Respiratory 15 17 17 Rate Blood Pressure 173/72 173/93 157/85 Blood Pressure [Left] O2 Sat by Pulse 98 98 98 Oximetry 09/06/18 09/06/18 09/06/18 14:40 14:42 14:50 Temperature Pulse Rate 99 H 97 H Respiratory 18 14 Rate Blood Pressure 157/85 173/93 157/85 Blood Pressure [Left] O2 Sat by Pulse 98 98 Oximetry 09/06/18 09/06/18 15:00 15:43 Temperature 97.7 F Pulse Rate 99 H 95 H Respiratory 14 18 Rate Blood Pressure 159/82 159/82 Blood Pressure [Left] O2 Sat by Pulse 98 98 Oximetry - Laboratory Findings CBC and BMP: 09/05/18 21:17 09/06/18 13:59 Abnormal Lab Findings: Abnormal Labs 09/05/18 09/05/18 09/05/18 00:00 00:00 21:17 Hgb 14.4 H MCHC 35 H RDW 12.7 L Seg Neutrophils % 75.5 H PT INR Sodium 131 L Potassium 2.8 L* Chloride 86.6 L BUN 37 H Creatinine 2.0 H Glucose 718 H* POC Glucose Hemoglobin A1c Calcium Phosphorus 2.30 L Magnesium 2.50 H Triglycerides LDL Cholesterol Direct HDL Cholesterol 09/05/18 09/05/18 09/05/18 21:17 21:17 23:52 Hgb MCHC RDW Seg Neutrophils % PT 12.0 L INR 0.84 L Sodium 124 L D Potassium 3.0 L Chloride 81.1 L BUN 35 H Creatinine 2.5 H Glucose 1058 H* POC Glucose Hemoglobin A1c 14.0 H Calcium Phosphorus Magnesium Triglycerides LDL Cholesterol Direct HDL Cholesterol 03/24/19 03/24/19 03/24/19 01:25 02:09 02:39 Hgb MCHC RDW Seg Neutrophils % PT INR Sodium 136 L D Potassium 3.0 L Chloride 93.6 L BUN 34 H Creatinine 2.0 H Glucose 461 H POC Glucose 438 H 378 H Hemoglobin A1c Calcium Phosphorus Magnesium Triglycerides LDL Cholesterol Direct HDL Cholesterol 09/06/18 09/06/18 09/06/18 03:13 04:06 04:06 Hgb MCHC RDW Seg Neutrophils % PT INR Sodium Potassium 3.0 L Chloride 97.1 L BUN 32 H Creatinine 1.8 H Glucose 348 H POC Glucose 403 H Hemoglobin A1c Calcium 8.3 L Phosphorus Magnesium Triglycerides 398 H LDL Cholesterol Direct 42 L HDL Cholesterol 24 L 09/06/18 09/06/18 09/06/18 04:31 05:22 06:20 Hgb MCHC RDW Seg Neutrophils % PT INR Sodium Potassium Chloride BUN Creatinine Glucose POC Glucose 294 H 229 H 209 H Hemoglobin A1c Calcium Phosphorus Magnesium Triglycerides LDL Cholesterol Direct HDL Cholesterol 09/06/18 09/06/18 09/06/18 07:30 09:34 13:09 Hgb MCHC RDW Seg Neutrophils % PT INR Sodium Potassium Chloride BUN Creatinine Glucose POC Glucose 201 H 286 H 282 H Hemoglobin A1c Calcium Phosphorus Magnesium Triglycerides LDL Cholesterol Direct HDL Cholesterol 09/06/18 13:59 Hgb MCHC RDW Seg Neutrophils % PT INR Sodium 136 L Potassium Chloride BUN 26 H Creatinine 1.9 H Glucose 361 H POC Glucose Hemoglobin A1c Calcium Phosphorus 1.60 L D Magnesium Triglycerides LDL Cholesterol Direct HDL Cholesterol
[2018-09-06 17:24] LABS: Calcium 8.6 mg/dL (8.4-10.2)
[2018-09-06] MEDS: NACL 0.9% 1000 ML 1,000 ML IV SCH (19:10)
[2018-09-06] MEDS: APRESOLINE PO SCH (21:23)
--- NOTE | 2018-09-06 23:02 | Consultation ---
HISTORY: This is a 48-year-old black female who presents to the Emergency Room at [facility] with new onset of severe chest pain and left-sided arm and face numbness, tingling. She has a prior medical history of diabetes, hypertension, and thickened heart valves. She has been on Coumadin, hydralazine, amlodipine, and metformin for diabetes. She denies having known that she has had a stroke in the past. She has, however, felt headaches, dizziness, and double vision over the past 3 to 4 weeks and states to me that she does feel somewhat forgetful. At the present time, she complains of a severe left-sided headache. ALLERGIES: No allergies. SOCIAL HISTORY: Denies smoking, denies drinking. PAST MEDICAL HISTORY: 1. Hypertension. 2. Diabetes. 3. Thickened heart valves. PHYSICAL EXAMINATION: VITAL SIGNS: The patient's blood pressure is 153/93, temperature is 98 degrees, pulse rate is 96, respirations 21, O2 sat is 97%. NEUROLOGIC: She is alert, appropriate. Full speech. Clear affect. Her visual cruz are full. Cranial nerves are entirely intact. Neck: Supple. Rn Ante Partum strength is equal. No tremors. No asterixis. Reflexes symmetrical. Motor tone normal. No focal weakness is present. The patient's memory is excellent. She is fully alert and oriented, although complaining of a left-sided headache. IMPRESSION: 1. I have reviewed over her prior CT scan, it shows multiple small areas of white matter disease that would be expected given her history of hypertension, diabetes. I do not see any specific vascular territory infarcts at present time, seen with embolic strokes from heart valvular disease and she has been on Coumadin therapy. 2. Valvular disease, cardiac. Await results of echo. 3. Diabetes mellitus type 2. 4. Hypertension, poorly controlled with current elevation of blood pressure noted. PLAN: Check MRI scan of brain, it is okay for the patient to receive low doses of Percocet that seems reasonable at present time and I would get an EEG on the patient because there was a very subtle ___ that she may have a temporary loss of consciousness in the ambulance when she was complaining of the chest pain and this atypical history may point to the seizure. ADDENDUM Additional information was obtained from the patient would indicate she did have a tonic movement of her left upper extremity following the onset of the attack. Her who was a witness of this is not present here and I, pending speaking to him, think this could have been a seizure given the fact she had the onset of tenacity, rigidity, and clonic movement of her left upper extremity. I do think her level of elevated creatinine would be responsible for these symptoms. She does have glucose that is quite elevated in the range of 361 and she may have had a hyperglycemic episode with blood sugar being 1058 at the time of the onset of the attack. Certainly, she has features of hypertension, diabetes, renal insufficiency and prior evidence of acute stroke. Other workup is pending. Please see my comments about her CT scan of the head, EEG is to be ordered and I will speak to the when he returns. I do not see that she has a diagnosis of seizures, but clearly sometimes patients may have a tonic seizure-like activity in a situation where they are profoundly hyperglycemic and this is non-epileptic compulsive state. JOB# [id number] JOSE/EVELYN
[2018-09-07] MEDS: HumaLOG SUB-Q SCH ×5 (00:32→23:48)
[2018-09-07 01:02] LABS: Calcium 8.3 mg/dL (8.4-10.2)
[2018-09-07] MEDS ORDERED: HumaLOG SUB-Q ONE (01:10)
[2018-09-07] MEDS: APRESOLINE PO SCH ×3 (06:04→21:48)
[2018-09-07] MEDS: LOVENOX SUB-Q SCH (09:35)
[2018-09-07] MEDS: NORVASC PO SCH (09:36)
[2018-09-07] MEDS: HCTZ PO SCH (09:36)
[2018-09-07] MEDS: ASPIRIN PO SCH (09:36)
[2018-09-07] MEDS ORDERED: NORVASC PO SCH (10:00)
--- NOTE | 2018-09-07 12:15 | Progress Note ---
Assessment and Plan Assessment and plan: --Hyperosmolar nonketotic state;s/p insulin drip no acidosis, no ketosis, continue current management --Onset diabetes mellitus; uncontrolled Increase 7030 insulin, ADA diet, sliding scale coverage Diabetic education, nutrition education, HbA1c 14 Possible home health nurse for disease monitoring --Hyponatremia; probably pseudohyponatremia secondary to hyperglycemia --Hypokalemia; replace per protocol and monitor levels --TIA/CVA; Neuro workup is in progress, continue neuro checks PT and OT rehabilitation, neurology following --Acute kidney injury; secondary to ATN, trending down Vigorous IV hydration, monitor renal function, avoid nephrotoxins --Dyslipidemia; lipid-lowering medications, low-cholesterol diet --Malignant hypertension; present on admission Blood pressures moderate control, continue current antihypertensives Add when necessary medications --Obesity; BMI 30.2, advised weight reduction when medically stable --DVT prophylaxis; Lovenox Closely monitor the patient and adjust the management as needed Possible discharge in 1-2 days if stable History Interval history: Patient seen and evaluated medical records reviewed Patient feels better no new complaints Blood sugars uncontrolled Blood pressures uncontrolled Neuro workup is in progress Alert awake oriented 3 Vital signs reviewed Hospitalist Physical - Constitutional Vitals: Temp Pulse Resp BP Pulse Ox 98.5 F 99 H 20 168/82 99 09/07/18 04:17 09/07/18 06:04 09/07/18 04:17 09/07/18 09:36 09/07/18 09:15 General appearance: Present: no acute distress, well-nourished, obese - EENT Eyes: Present: PERRL, EOM intact - Neck Neck: Present: supple, normal ROM - Respiratory Respiratory effort: normal Respiratory: bilateral: diminished, negative: rales, rhonchi, wheezing - Cardiovascular Rhythm: regular Heart Sounds: Present: S1 & S2 - Extremities Extremities: no ischemia, No edema - Abdominal General gastrointestinal: soft, non-tender, non-distended, normal bowel sounds - Integumentary Integumentary: Present: clear, warm - Psychiatric Psychiatric: appropriate mood/affect, cooperative - Neurologic Neurologic: CNII-XII intact, moves all extremities Results - Labs CBC & Chem 7: 09/05/18 21:17 09/06/18 22:58 Labs: Laboratory Last Values WBC 6.9 K/mm3 (4.5-11.0) 09/05/18 21:17 RBC 4.73 M/mm3 (3.65-5.03) 09/05/18 21:17 Hgb 14.4 gm/dl (10.1-14.3) H 09/05/18 21:17 Hct 41.6 % (30.3-42.9) 09/05/18 21:17 MCV 88 fl (79-97) 09/05/18 21:17 MCH 30 pg (28-32) 09/05/18 21:17 MCHC 35 % (30-34) H 09/05/18 21:17 RDW 12.7 % (13.2-15.2) L 09/05/18 21:17 Plt Count 354 K/mm3 (140-440) 09/05/18 21:17 Lymph % (Auto) 17.8 % (13.4-35.0) 09/05/18 21:17 [place] % (Auto) 4.5 % (0.0-7.3) 09/05/18 21:17 Eos % (Auto) 1.5 % (0.0-4.3) 09/05/18 21:17 Baso % (Auto) 0.7 % (0.0-1.8) 09/05/18 21:17 Lymph # 1.2 K/mm3 (1.2-5.4) 09/05/18 21:17 [place] # 0.3 K/mm3 (0.0-0.8) 09/05/18 21:17 Eos # 0.1 K/mm3 (0.0-0.4) 09/05/18 21:17 Baso # 0.1 K/mm3 (0.0-0.1) 09/05/18 21:17 Seg Neutrophils % 75.5 % (40.0-70.0) H 09/05/18 21:17 Seg Neutrophils # 5.2 K/mm3 (1.8-7.7) 09/05/18 21:17 PT 12.0 Sec. (12.2-14.9) L 09/05/18 21:17 INR 0.84 (0.87-1.13) L 09/05/18 21:17 APTT 31.6 Sec. (24.2-36.6) 09/05/18 21:17 Thrombin Time 19.3 Sec. (15.1-19.6) 09/05/18 21:17 Sodium 134 mmol/L (137-145) L 09/06/18 22:58 Potassium 3.4 mmol/L (3.6-5.0) L 09/06/18 22:58 Chloride 97.7 mmol/L (98-107) L 09/06/18 22:58 Carbon Dioxide 24 mmol/L (22-30) 09/06/18 22:58 Anion Gap 16 mmol/L 09/06/18 22:58 BUN 25 mg/dL (7-17) H 09/06/18 22:58 Creatinine 1.6 mg/dL (0.7-1.2) H 09/06/18 22:58 Estimated GFR 42 ml/min 09/06/18 22:58 BUN/Creatinine Ratio 16 % 09/06/18 22:58 Glucose 493 mg/dL (65-100) H 09/06/18 22:58 POC Glucose 243 (70-105) H 09/07/18 07:43 Hemoglobin A1c 14.0 % (4-6) H 09/05/18 23:52 Calcium 8.3 mg/dL (8.4-10.2) L 09/06/18 22:58 Phosphorus 1.60 mg/dL (2.5-4.5) L D 09/06/18 13:59 Magnesium 2.30 mg/dL (1.7-2.3) 09/06/18 13:59 Troponin T < 0.010 ng/mL (0.00-0.029) 09/05/18 21:17 Triglycerides 398 mg/dL (2-149) H 09/06/18 04:06 Cholesterol 112 mg/dL (50-199) 09/06/18 04:06 LDL Cholesterol Direct 42 mg/dL (50-130) L 09/06/18 04:06 HDL Cholesterol 24 mg/dL (40-59) L 09/06/18 04:06 Cholesterol/HDL Ratio 4.66 % 09/06/18 04:06 Urine Color Colorless (Yellow) 09/05/18 23:00 Urine Turbidity Clear (Clear) 09/05/18 23:00 Urine pH 7.0 (5.0-7.0) 09/05/18 23:00 Ur Specific [place] 1.020 (1.003-1.030) 09/05/18 23:00 Urine Protein 100 mg/dl mg/dL (Negative) 09/05/18 23:00 Urine Glucose (UA) >=500 mg/dL (Negative) 09/05/18 23:00 Urine Ketones Neg mg/dL (Negative) 09/05/18 23:00 Urine Blood Sm (Negative) 09/05/18 23:00 Urine Nitrite Neg (Negative) 09/05/18 23:00 Urine Bilirubin Neg (Negative) 09/05/18 23:00 Urine Urobilinogen < 2.0 mg/dL (<2.0) 09/05/18 23:00 Ur Leukocyte Esterase Neg (Negative) 09/05/18 23:00 Urine WBC (Auto) 1.0 /HPF (0.0-6.0) 09/05/18 23:00 Urine RBC (Auto) 2.0 /HPF (0.0-6.0) 09/05/18 23:00 U Epithel Cells (Auto) < 1.0 /HPF (0-13.0) 09/05/18 23:00 Active Medications - Current Medications Current Medications: Generic Name Dose Route Start Last Admin Trade Name Freq PRN Reason Stop Dose Admin Acetaminophen 650 mg 09/05/18 23:18 Tylenol PO Q4H PRN Pain, Mild (1-3) Amlodipine Besylate 10 mg 09/07/18 10:00 09/07/18 09:36 Norvasc PO 10 mg DAILY CHIDI Administration Aspirin 325 mg 09/06/18 10:00 09/07/18 09:36 Aspirin PO 325 mg QDAY CHIDI Administration Atorvastatin Calcium 80 mg 09/06/18 10:00 09/07/18 09:35 Lipitor PO 80 mg DAILY CHIDI Administration Bisacodyl 10 mg 09/05/18 23:18 Dulcolax VA QDAY PRN Constipation Dextrose 0 ml 09/05/18 23:22 D50w (25gm) Syringe IV ONCE PRN Hypoglycemia Enoxaparin Sodium 30 mg 09/06/18 10:00 09/07/18 09:35 Lovenox SUB-Q 30 mg QDAY CHIDI Administration Hydralazine HCl 5 mg 09/05/18 23:24 09/06/18 12:26 Apresoline IV 5 mg Q6H PRN Administration Hypertension Hydralazine HCl 25 mg 09/06/18 22:00 09/07/18 06:04 Apresoline PO 25 mg Q8HR CHIDI Administration Hydrochlorothiazide 25 mg 09/07/18 10:00 09/07/18 09:36 Hctz PO 25 mg QAM CHIDI Administration Sodium Chloride 1,000 mls @ 100 mls/hr 09/05/18 23:45 09/06/18 19:10 Nacl 0.9% 1000 Ml IV 100 mls/hr DIRECT CHIDI Administration Insulin Human Isoph/Insulin Regular 20 unit 09/06/18 17:00 09/07/18 08:39 Humulin 70/30 SUB-Q 20 unit BIDDIAB CHIDI Administration Insulin Human Lispro 0 unit 09/06/18 11:30 09/07/18 08:40 Humalog SUB-Q 4 unit ACHS CHIDI Administration Protocol Magnesium Hydroxide 30 ml 09/05/18 23:18 Milk Of Magnesia PO Q4H PRN Constipation Metoclopramide HCl 5 mg 09/05/18 23:18 Reglan IV Q6H PRN Nausea And Vomiting Ondansetron HCl 4 mg 09/05/18 23:18 Zofran IV Q8H PRN Nausea And Vomiting Oxycodone/Acetaminophen 1 tab 09/06/18 15:34 Percocet 5/325 PO Q4H PRN Pain, Moderate (4-6) Sodium Chloride 10 ml 09/05/18 23:18 Sodium Chloride Flush Syringe 10 Ml IV PRN PRN LINE FLUSH
--- NOTE | 2018-09-07 12:35 | Magnetic Resonance Report ---
MRI BRAIN WITHOUT CONTRAST: 09/07/18 CLINICAL: Stroke. TECHNIQUE: Axial diffusion, T1, T2, gradient echo T2*, coronal and axial FLAIR and sagittal T1 sequences on a 1.5 Zarina magnet. FINDINGS: The left lateral ventricle is enlarged but the rest of the ventricles are normal size. The sulci are normal for age. No restricted diffusion. Bilateral multifocal white matter hyperintensities on FLAIR and T2 which are more prominent on the left than the right. No mass or mass effect. No acute or subacute hemorrhage. Multiple chronic microbleeds involving the cerebrum, brainstem and cerebellum. These are greater in number in the left cerebral hemisphere. The largest is in the right occipital lobe. No edema or extra-axial collection. No chronic lacunar infarcts Normal pituitary and optic chiasm. The brainstem and cerebellum are normal. Intact vascular flow voids. Normal sinuses. The orbits, and soft tissues are normal. Normal calvarium and skull base. IMPRESSION: 1. No evidence of acute size subacute infarct or hemorrhage. 2. Multiple chronic microbleeds involving the cerebrum, cerebellum and brainstem. 3. Moderate chronic white matter microangiopathy, greater on the left than the right. 4. Asymmetric left ventriculomegaly is of uncertain etiology but may be related to the microangiopathy.
--- NOTE | 2018-09-07 13:04 | Progress Note ---
Assessment and Plan Hyperosmolar nonketotic state Hyponatremia Hypokalemia TIA/CVA Acute kidney injury Dyslipidemia Malignant hypertension; present on admission Obesity; BMI 30.2 - OK to stop insulin infusion per protocol - Weight based, basal bolus insulin therapy - Blood pressure control - VTE prophylaxis - Statin therapy - Steady carb diet - Nutrition consult, diabetic education - Life style modification - IVF, monitor renal function - Replete electrolytes as indicated - Secondary stroke prophylaxis - Neurology consult noted ... re-evaluate in am & prn Subjective Date of service: 09/07/18 Principal diagnosis: Hyperosmolar nonketotic state; Hyponatremia; TIA/CVA; Acute kidney injury Interval history: Patient is seen today for: Hyperosmolar nonketotic state; Hyponatremia; Hypokalemia; TIA/CVA; Acute kidney injury Seen and examined at bedside; 24hour events reviewed; nursing and respiratory care staff consulted; no adverse overnight events reported to me; resting peacefully in bed; Objective Vital Signs - 12hr 09/07/18 09/07/18 09/07/18 04:17 06:04 09:15 Temperature 98.5 F Pulse Rate 86 99 H Respiratory 20 Rate Blood Pressure 165/84 173/94 O2 Sat by Pulse 97 99 Oximetry 09/07/18 09:36 Temperature Pulse Rate Respiratory Rate Blood Pressure 168/82 O2 Sat by Pulse Oximetry Constitutional: no acute distress Eyes: non-icteric ENT: oropharynx moist Neck: supple, no lymphadenopathy, no JVD Effort: normal Ascultation: Bilateral: clear Cardiovascular: regular rate and rhythm (tachycardia), other (S1,S2, no murmurs, gallops or rubs) Gastrointestinal: normoactive bowel sounds, soft, non-tender, non-distended Integumentary: normal Extremities: no cyanosis, no edema, pulses normal, no ischemia or petechiae Neurologic: normal mental status, non-focal exam, pupils equal and round, CN II- XII normal, motor strength normal and Psychiatric: mood appropriate, affect normal CBC and BMP: 09/05/18 21:17 09/06/18 22:58 ABG, PT/INR, D-dimer: PT/INR, D-dimer PT 12.0 Sec. (12.2-14.9) L 09/05/18 21:17 INR 0.84 (0.87-1.13) L 09/05/18 21:17 Abnormal lab findings: Abnormal Labs 09/05/18 09/05/18 09/05/18 00:00 00:00 20:57 Hgb MCHC RDW Seg Neutrophils % PT INR Sodium 131 L Potassium 2.8 L* Chloride 86.6 L BUN 37 H Creatinine 2.0 H Glucose 718 H* POC Glucose > 500 H Hemoglobin A1c Calcium Phosphorus 2.30 L Magnesium 2.50 H Triglycerides LDL Cholesterol Direct HDL Cholesterol 09/05/18 09/05/18 09/05/18 21:17 21:17 21:17 Hgb 14.4 H MCHC 35 H RDW 12.7 L Seg Neutrophils % 75.5 H PT 12.0 L INR 0.84 L Sodium 124 L D Potassium 3.0 L Chloride 81.1 L BUN 35 H Creatinine 2.5 H Glucose 1058 H* POC Glucose Hemoglobin A1c Calcium Phosphorus Magnesium Triglycerides LDL Cholesterol Direct HDL Cholesterol 09/05/18 09/06/18 09/06/18 23:52 01:25 02:09 Hgb MCHC RDW Seg Neutrophils % PT INR Sodium Potassium Chloride BUN Creatinine Glucose POC Glucose 438 H 378 H Hemoglobin A1c 14.0 H Calcium Phosphorus Magnesium Triglycerides LDL Cholesterol Direct HDL Cholesterol 09/06/18 09/06/18 09/06/18 02:39 03:13 04:06 Hgb MCHC RDW Seg Neutrophils % PT INR Sodium 136 L D Potassium 3.0 L 3.0 L Chloride 93.6 L 97.1 L BUN 34 H 32 H Creatinine 2.0 H 1.8 H Glucose 461 H 348 H POC Glucose 403 H Hemoglobin A1c Calcium 8.3 L Phosphorus Magnesium Triglycerides LDL Cholesterol Direct HDL Cholesterol 09/06/18 09/06/18 09/06/18 04:06 04:31 05:22 Hgb MCHC RDW Seg Neutrophils % PT INR Sodium Potassium Chloride BUN Creatinine Glucose POC Glucose 294 H 229 H Hemoglobin A1c Calcium Phosphorus Magnesium Triglycerides 398 H LDL Cholesterol Direct 42 L HDL Cholesterol 24 L 09/06/18 09/06/18 09/06/18 06:20 07:30 09:34 Hgb MCHC RDW Seg Neutrophils % PT INR Sodium Potassium Chloride BUN Creatinine Glucose POC Glucose 209 H 201 H 286 H Hemoglobin A1c Calcium Phosphorus Magnesium Triglycerides LDL Cholesterol Direct HDL Cholesterol 09/06/18 09/06/18 09/06/18 13:09 13:59 16:56 Hgb MCHC RDW Seg Neutrophils % PT INR Sodium 136 L Potassium Chloride BUN 26 H 25 H Creatinine 1.9 H 1.7 H Glucose 361 H 411 H POC Glucose 282 H Hemoglobin A1c Calcium Phosphorus 1.60 L D Magnesium Triglycerides LDL Cholesterol Direct HDL Cholesterol 09/06/18 09/06/18 09/06/18 17:17 21:30 22:58 Hgb MCHC RDW Seg Neutrophils % PT INR Sodium 134 L Potassium 3.4 L Chloride 97.7 L BUN 25 H Creatinine 1.6 H Glucose 493 H POC Glucose 389 H 401 H Hemoglobin A1c Calcium 8.3 L Phosphorus Magnesium Triglycerides LDL Cholesterol Direct HDL Cholesterol 09/07/18 09/07/18 09/07/18 00:17 03:57 07:43 Hgb MCHC RDW Seg Neutrophils % PT INR Sodium Potassium Chloride BUN Creatinine Glucose POC Glucose 418 H 267 H 243 H Hemoglobin A1c Calcium Phosphorus Magnesium Triglycerides LDL Cholesterol Direct HDL Cholesterol
--- NOTE | 2018-09-07 13:41 | Progress Note ---
Subjective Date of service: 09/07/18 Principal diagnosis: Hyperosmolar nonketotic state; Hyponatremia; TIA/CVA; Acute kidney injury Interval history: suspect episode is related to hyperglycemia.... the MRI does not show acute stroke only old chronic lacunar microangiopathic changes advise diavbetic control Thanks Objective - Vital Sign Vital Signs - 12hr 09/07/18 09/07/18 09/07/18 04:17 06:04 09:15 Temperature 98.5 F Pulse Rate 86 99 H Respiratory 20 Rate Blood Pressure 165/84 173/94 O2 Sat by Pulse 97 99 Oximetry 09/07/18 09:36 Temperature Pulse Rate Respiratory Rate Blood Pressure 168/82 O2 Sat by Pulse Oximetry - Laboratory Findings CBC and BMP: 09/05/18 21:17 09/06/18 22:58 Abnormal Lab Findings: Abnormal Labs 09/05/18 09/05/18 09/05/18 00:00 00:00 20:57 Hgb MCHC RDW Seg Neutrophils % PT INR Sodium 131 L Potassium 2.8 L* Chloride 86.6 L BUN 37 H Creatinine 2.0 H Glucose 718 H* POC Glucose > 500 H Hemoglobin A1c Calcium Phosphorus 2.30 L Magnesium 2.50 H Triglycerides LDL Cholesterol Direct HDL Cholesterol 09/05/18 09/05/18 09/05/18 21:17 21:17 21:17 Hgb 14.4 H MCHC 35 H RDW 12.7 L Seg Neutrophils % 75.5 H PT 12.0 L INR 0.84 L Sodium 124 L D Potassium 3.0 L Chloride 81.1 L BUN 35 H Creatinine 2.5 H Glucose 1058 H* POC Glucose Hemoglobin A1c Calcium Phosphorus Magnesium Triglycerides LDL Cholesterol Direct HDL Cholesterol 09/05/18 09/06/18 09/06/18 23:52 01:25 02:09 Hgb MCHC RDW Seg Neutrophils % PT INR Sodium Potassium Chloride BUN Creatinine Glucose POC Glucose 438 H 378 H Hemoglobin A1c 14.0 H Calcium Phosphorus Magnesium Triglycerides LDL Cholesterol Direct HDL Cholesterol 09/06/18 09/06/18 09/06/18 02:39 03:13 04:06 Hgb MCHC RDW Seg Neutrophils % PT INR Sodium 136 L D Potassium 3.0 L 3.0 L Chloride 93.6 L 97.1 L BUN 34 H 32 H Creatinine 2.0 H 1.8 H Glucose 461 H 348 H POC Glucose 403 H Hemoglobin A1c Calcium 8.3 L Phosphorus Magnesium Triglycerides LDL Cholesterol Direct HDL Cholesterol 09/06/18 09/06/18 09/06/18 04:06 04:31 05:22 Hgb MCHC RDW Seg Neutrophils % PT INR Sodium Potassium Chloride BUN Creatinine Glucose POC Glucose 294 H 229 H Hemoglobin A1c Calcium Phosphorus Magnesium Triglycerides 398 H LDL Cholesterol Direct 42 L HDL Cholesterol 24 L 09/06/18 09/06/18 09/06/18 06:20 07:30 09:34 Hgb MCHC RDW Seg Neutrophils % PT INR Sodium Potassium Chloride BUN Creatinine Glucose POC Glucose 209 H 201 H 286 H Hemoglobin A1c Calcium Phosphorus Magnesium Triglycerides LDL Cholesterol Direct HDL Cholesterol 09/06/18 09/06/18 09/06/18 13:09 13:59 16:56 Hgb MCHC RDW Seg Neutrophils % PT INR Sodium 136 L Potassium Chloride BUN 26 H 25 H Creatinine 1.9 H 1.7 H Glucose 361 H 411 H POC Glucose 282 H Hemoglobin A1c Calcium Phosphorus 1.60 L D Magnesium Triglycerides LDL Cholesterol Direct HDL Cholesterol 09/06/18 09/06/18 09/06/18 17:17 21:30 22:58 Hgb MCHC RDW Seg Neutrophils % PT INR Sodium 134 L Potassium 3.4 L Chloride 97.7 L BUN 25 H Creatinine 1.6 H Glucose 493 H POC Glucose 389 H 401 H Hemoglobin A1c Calcium 8.3 L Phosphorus Magnesium Triglycerides LDL Cholesterol Direct HDL Cholesterol 09/07/18 09/07/18 09/07/18 00:17 03:57 07:43 Hgb MCHC RDW Seg Neutrophils % PT INR Sodium Potassium Chloride BUN Creatinine Glucose POC Glucose 418 H 267 H 243 H Hemoglobin A1c Calcium Phosphorus Magnesium Triglycerides LDL Cholesterol Direct HDL Cholesterol 09/07/18 13:16 Hgb MCHC RDW Seg Neutrophils % PT INR Sodium Potassium Chloride BUN Creatinine Glucose POC Glucose 262 H Hemoglobin A1c Calcium Phosphorus Magnesium Triglycerides LDL Cholesterol Direct HDL Cholesterol
[2018-09-07] MEDS: NACL 0.9% 1000 ML 1,000 ML IV SCH (17:03)
--- NOTE | 2018-09-07 20:59 | Event Note ---
Date: 09/07/18 PULMONARY NOTE PATIENT NO COMPLAINT OF CHEST PAIN, SHORTNESS OF BREATH OR COUGH.PATIENT STABLE FROM PULMONARY POINT OF VIEW.SIGNING OF THE CASE.IF ANY PULMONARY HELP NEEDED ,CALL US BACK. ABDOULAYE LENZ
[2018-09-08] MEDS: APRESOLINE PO SCH ×3 (05:49→23:30)
[2018-09-08] MEDS: NACL 0.9% 1000 ML 1,000 ML IV SCH ×2 (05:50→16:22)
[2018-09-08 06:30] LABS: Basophils # (Auto) 0.1 K/mm3 (0.0-0.1); Eosinophils # (Auto) 0.2 K/mm3 (0.0-0.4); Hematocrit 41.2 % (30.3-42.9); Hemoglobin 14.2 gm/dl (10.1-14.3); Lymphocytes # (Auto) 3.1 K/mm3 (1.2-5.4); Lymphocytes % (Auto) 42.2 % (13.4-35.0); Mean Corpuscular HGB Conc 35 % (30-34); Mean Corpuscular Hemoglobin 29 pg (28-32); Mean Corpuscular Volume 85 fl (79-97); Monocytes # (Auto) 0.4 K/mm3 (0.0-0.8); Monocytes % (Auto) 5.5 % (0.0-7.3); Platelet Count 343 K/mm3 (140-440); Red Blood Count 4.87 M/mm3 (3.65-5.03); Red Cell Distribution Width 12.7 % (13.2-15.2)
[2018-09-08 07:19] LABS: Albumin 3.2 g/dL (3.9-5); Calcium 8.8 mg/dL (8.4-10.2)
[2018-09-08] MEDS: HumaLOG SUB-Q SCH ×4 (08:51→23:32)
[2018-09-08] MEDS: ASPIRIN PO SCH (08:51)
[2018-09-08] MEDS: NORVASC PO SCH (08:51)
[2018-09-08] MEDS: HCTZ PO SCH (08:52)
[2018-09-08] MEDS: LOVENOX SUB-Q SCH (08:52)
--- NOTE | 2018-09-08 10:22 | Progress Note ---
Assessment and Plan Assessment and plan: --TIA/CVA; Neuro workup is in progress, continue neuro checks PT and OT rehabilitation, neurology following Workup so far MRI brain; no evidence of acute or subacute infarctions or hemorrhage Multiple colonic microbleed involving cerebrum cerebellum and brainstem Moderate chronic white matter microangiopathy Asymmetric left ventricular megaly uncertain etiology CT head negative Echocardiogram Carotid Doppler --Malignant hypertension; present on admission Blood pressures moderate control, continue current antihypertensives Add when necessary medications --Hyperosmolar nonketotic state;s/p insulin drip no acidosis, no ketosis, continue current management --Onset diabetes mellitus; uncontrolled Increase 7030 insulin 32 units twice a day, ADA diet, sliding scale coverage Diabetic education, nutrition education, HbA1c 14 Possible home health nurse for disease monitoring --Hyponatremia; probably pseudohyponatremia secondary to hyperglycemia --Hypokalemia; replace per protocol and monitor levels --Acute kidney injury; secondary to ATN, trending down Vigorous IV hydration, monitor renal function, avoid nephrotoxins --Dyslipidemia; lipid-lowering medications, low-cholesterol diet --Obesity; BMI 30.2, advised weight reduction when medically stable --DVT prophylaxis; Lovenox Closely monitor the patient and adjust the management as needed Possible discharge in 1-2 days if stable History Interval history: Patient seen and examined medical records reviewed Patient feels slightly better she was still uncontrolled Blood pressures uncontrolled Neurology Workup reviewed Alert awake oriented 3 not in acute distress , vital signs noted Hospitalist Physical - Constitutional Vitals: Temp Pulse Resp BP Pulse Ox 98.5 F 83 20 160/81 97 09/07/18 21:43 09/08/18 05:49 09/08/18 05:00 09/08/18 05:49 09/08/18 05:00 General appearance: Present: no acute distress, well-nourished, obese - EENT Eyes: Present: PERRL, EOM intact - Neck Neck: Present: supple, normal ROM - Respiratory Respiratory effort: normal Respiratory: bilateral: diminished, negative: rales, rhonchi, wheezing - Cardiovascular Rhythm: regular Heart Sounds: Present: S1 & S2 - Extremities Extremities: no ischemia, No edema - Abdominal General gastrointestinal: soft, non-tender, non-distended, normal bowel sounds - Integumentary Integumentary: Present: clear, warm - Psychiatric Psychiatric: appropriate mood/affect, cooperative - Neurologic Neurologic: CNII-XII intact, moves all extremities Results - Labs CBC & Chem 7: 09/08/18 06:09 09/08/18 06:09 Labs: Laboratory Last Values WBC 7.4 K/mm3 (4.5-11.0) 09/08/18 06:09 RBC 4.87 M/mm3 (3.65-5.03) 09/08/18 06:09 Hgb 14.2 gm/dl (10.1-14.3) 09/08/18 06:09 Hct 41.2 % (30.3-42.9) 09/08/18 06:09 MCV 85 fl (79-97) 09/08/18 06:09 MCH 29 pg (28-32) 09/08/18 06:09 MCHC 35 % (30-34) H 09/08/18 06:09 RDW 12.7 % (13.2-15.2) L 09/08/18 06:09 Plt Count 343 K/mm3 (140-440) 09/08/18 06:09 Lymph % (Auto) 42.2 % (13.4-35.0) H 09/08/18 06:09 [place] % (Auto) 5.5 % (0.0-7.3) 09/08/18 06:09 Eos % (Auto) 3.0 % (0.0-4.3) 09/08/18 06:09 Baso % (Auto) 1.0 % (0.0-1.8) 09/08/18 06:09 Lymph # 3.1 K/mm3 (1.2-5.4) 09/08/18 06:09 [place] # 0.4 K/mm3 (0.0-0.8) 09/08/18 06:09 Eos # 0.2 K/mm3 (0.0-0.4) 09/08/18 06:09 Baso # 0.1 K/mm3 (0.0-0.1) 09/08/18 06:09 Seg Neutrophils % 48.3 % (40.0-70.0) 09/08/18 06:09 Seg Neutrophils # 3.6 K/mm3 (1.8-7.7) 09/08/18 06:09 PT 12.0 Sec. (12.2-14.9) L 09/05/18 21:17 INR 0.84 (0.87-1.13) L 09/05/18 21:17 APTT 31.6 Sec. (24.2-36.6) 09/05/18 21:17 Thrombin Time 19.3 Sec. (15.1-19.6) 09/05/18 21:17 Sodium 137 mmol/L (137-145) 09/08/18 06:09 Potassium 3.1 mmol/L (3.6-5.0) L 09/08/18 06:09 Chloride 101.4 mmol/L (98-107) 09/08/18 06:09 Carbon Dioxide 25 mmol/L (22-30) 09/08/18 06:09 Anion Gap 14 mmol/L 09/08/18 06:09 BUN 27 mg/dL (7-17) H 09/08/18 06:09 Creatinine 1.9 mg/dL (0.7-1.2) H 09/08/18 06:09 Estimated GFR 34 ml/min 09/08/18 06:09 BUN/Creatinine Ratio 14 % 09/08/18 06:09 Glucose 278 mg/dL (65-100) H 09/08/18 06:09 POC Glucose 291 (70-105) H 09/08/18 08:03 Hemoglobin A1c 14.0 % (4-6) H 09/05/18 23:52 Calcium 8.8 mg/dL (8.4-10.2) 09/08/18 06:09 Phosphorus 1.60 mg/dL (2.5-4.5) L D 09/06/18 13:59 Magnesium 2.30 mg/dL (1.7-2.3) 09/06/18 13:59 Total Bilirubin 0.40 mg/dL (0.1-1.2) 09/08/18 06:09 AST 15 units/L (5-40) 09/08/18 06:09 ALT 24 units/L (7-56) 09/08/18 06:09 Alkaline Phosphatase 66 units/L (35-129) 09/08/18 06:09 Troponin T < 0.010 ng/mL (0.00-0.029) 09/05/18 21:17 Total Protein 6.3 g/dL (6.3-8.2) 09/08/18 06:09 Albumin 3.2 g/dL (3.9-5) L 09/08/18 06:09 Albumin/Globulin Ratio 1.0 % 09/08/18 06:09 Triglycerides 398 mg/dL (2-149) H 09/06/18 04:06 Cholesterol 112 mg/dL (50-199) 09/06/18 04:06 LDL Cholesterol Direct 42 mg/dL (50-130) L 09/06/18 04:06 HDL Cholesterol 24 mg/dL (40-59) L 09/06/18 04:06 Cholesterol/HDL Ratio 4.66 % 09/06/18 04:06 Urine Color Colorless (Yellow) 09/05/18 23:00 Urine Turbidity Clear (Clear) 09/05/18 23:00 Urine pH 7.0 (5.0-7.0) 09/05/18 23:00 Ur Specific [place] 1.020 (1.003-1.030) 09/05/18 23:00 Urine Protein 100 mg/dl mg/dL (Negative) 09/05/18 23:00 Urine Glucose (UA) >=500 mg/dL (Negative) 09/05/18 23:00 Urine Ketones Neg mg/dL (Negative) 09/05/18 23:00 Urine Blood Sm (Negative) 09/05/18 23:00 Urine Nitrite Neg (Negative) 09/05/18 23:00 Urine Bilirubin Neg (Negative) 09/05/18 23:00 Urine Urobilinogen < 2.0 mg/dL (<2.0) 09/05/18 23:00 Ur Leukocyte Esterase Neg (Negative) 09/05/18 23:00 Urine WBC (Auto) 1.0 /HPF (0.0-6.0) 09/05/18 23:00 Urine RBC (Auto) 2.0 /HPF (0.0-6.0) 09/05/18 23:00 U Epithel Cells (Auto) < 1.0 /HPF (0-13.0) 09/05/18 23:00 Active Medications - Current Medications Current Medications: Generic Name Dose Route Start Last Admin Trade Name Freq PRN Reason Stop Dose Admin Acetaminophen 650 mg 09/05/18 23:18 Tylenol PO Q4H PRN Pain, Mild (1-3) Amlodipine Besylate 10 mg 09/07/18 10:00 09/08/18 08:51 Norvasc PO 10 mg DAILY CHIDI Administration Aspirin 325 mg 09/06/18 10:00 09/08/18 08:51 Aspirin PO 325 mg QDAY CHIDI Administration Atorvastatin Calcium 80 mg 09/06/18 10:00 09/08/18 08:52 Lipitor PO 80 mg DAILY CHIDI Administration Bisacodyl 10 mg 09/05/18 23:18 Dulcolax OR QDAY PRN Constipation Dextrose 0 ml 09/05/18 23:22 D50w (25gm) Syringe IV ONCE PRN Hypoglycemia Enoxaparin Sodium 30 mg 09/06/18 10:00 09/08/18 08:52 Lovenox SUB-Q 30 mg QDAY CH[facility]I Administration Hydralazine HCl 5 mg 09/05/18 23:24 09/06/18 12:26 Apresoline IV 5 mg Q6H PRN Administration Hypertension Hydralazine HCl 50 mg 09/07/18 12:38 09/08/18 05:49 Apresoline PO 50 mg Q8HR CH[facility]I Administration Hydrochlorothiazide 25 mg 09/07/18 10:00 09/08/18 08:52 Hctz PO 25 mg QAM CHIDI Administration Sodium Chloride 1,000 mls @ 100 mls/hr 09/05/18 23:45 09/08/18 05:50 Nacl 0.9% 1000 Ml IV 100 mls/hr DIRECT [facility]I Administration Insulin Human Isoph/Insulin Regular 26 unit 09/07/18 12:35 09/08/18 08:49 Humulin 70/30 SUB-Q 26 unit BIDDIAB CH[facility]I Administration Insulin Human Lispro 0 unit 09/06/18 11:30 09/08/18 08:51 Humalog SUB-Q 6 unit ACHS CH[facility]I Administration Protocol Magnesium Hydroxide 30 ml 09/05/18 23:18 Milk Of Magnesia PO Q4H PRN Constipation Metoclopramide HCl 5 mg 09/05/18 23:18 Reglan IV Q6H PRN Nausea And Vomiting Ondansetron HCl 4 mg 09/05/18 23:18 Zofran IV Q8H PRN Nausea And Vomiting Oxycodone/Acetaminophen 1 tab 09/06/18 15:34 Percocet 5/325 PO Q4H PRN Pain, Moderate (4-6) Sodium Chloride 10 ml 09/05/18 23:18 Sodium Chloride Flush Syringe 10 Ml IV PRN PRN LINE FLUSH Nutrition/Malnutrition Assess - Dietary Evaluation Nutrition/Malnutrition Findings: Nutrition Notes Start: 09/07/18 16:21 Freq: Status: Active Protocol: Document 09/07/18 16:21 [place] (Rec: 09/07/18 16:26 OH [id number]) Nutrition Notes Need for Assessment generated from: MD Order,Education Initial or Follow up Brief Note Current Diagnosis Acute Kidney Injury,Diabetes, Hypertension Other Pertinent Diagnosis TIA; Current Diet Consistent CHO Labs/Tests Na 134 hgba1c 14.0 K+ 3.4 ca 8.3 Pertinent Medications Lovenox Insulin Coumadin Height 5 ft 1 in Weight 72.57 kg [place] Body Weight (kg) 47.72 BMI 30.2 Weight Status Obese Subjective/Other Information MD consult for DM EDUC; Pt. having testing and out of room . Is patient on ventilator? No Is Patient Ambulatory and/or Out of Bed No REE-([facility]-confined to bed) [phone] Additional Notes adj bw 54 kgs Nutrition Intervention Follow-Up By: 09/08/18
[2018-09-08] MEDS ORDERED: CATAPRES PO STA (11:05)
[2018-09-08] MEDS ORDERED: K-DUR PO ONE (12:18)
[2018-09-08] MEDS ORDERED: NACL 0.9% 500 ML 500 ML IV ONE (12:45)
--- NOTE | 2018-09-08 13:12 | Consultation ---
History of Present Illness - Reason for Consult Consult date: 09/08/18 acute renal failure - History of Present Illness 48 yo female with hx fo CVA, HTN and DM who presents on 09/05 with left sided weakness, facial droop and trouble with speech suddenly, MRI of the biran was negative for acute ischemic change, she was noted to have hyperglycemia and started on insulin infusion and now on SQ, she was noted to have abnormal kidney function and renal consult was requested Medications and Allergies Allergies Allergy/AdvReac Type Severity Reaction Status Date / Time No Known Allergies Allergy Verified 09/27/17 16:32 Home Medications Medication Instructions Recorded Confirmed Last Taken Type amLODIPine [Norvasc] 10 mg PO QDAY #30 tablet 09/24/14 09/06/18 Unknown Rx Amlodipine Besylate 10 mg PO DAILY 09/06/18 09/06/18 Unknown History AtorvaSTATin [Lipitor] 80 mg PO DAILY 09/06/18 09/06/18 Unknown History hydroCHLOROthiazide [HCTZ] 25 mg PO QAM 09/06/18 09/06/18 Unknown History Active Meds: Active Medications Acetaminophen (Tylenol) 650 mg PO Q4H PRN PRN Reason: Pain, Mild (1-3) Amlodipine Besylate (Norvasc) 10 mg PO DAILY [facility] Last Admin: 09/08/18 08:51 Dose: 10 mg Documented by: Aspirin (Aspirin) 325 mg PO QDAY [facility] Last Admin: 09/08/18 08:51 Dose: 325 mg Documented by: Atorvastatin Calcium (Lipitor) 80 mg PO DAILY [facility] Last Admin: 09/08/18 08:52 Dose: 80 mg Documented by: Bisacodyl (Dulcolax) 10 mg [place] QDAY PRN PRN Reason: Constipation Clonidine HCl (Catapres) 0.1 mg PO Q12HR [facility] Dextrose (D50w (25gm) Syringe) 0 ml IV ONCE PRN PRN Reason: Hypoglycemia Enoxaparin Sodium (Lovenox) 30 mg SUB-Q QDAY [facility] Last Admin: 09/08/18 08:52 Dose: 30 mg Documented by: Hydralazine HCl (Apresoline) 5 mg IV Q6H PRN PRN Reason: Hypertension Last Admin: 09/06/18 12:26 Dose: 5 mg Documented by: Hydralazine HCl (Apresoline) 50 mg PO Q8HR [facility] Last Admin: 09/08/18 12:43 Dose: 50 mg Documented by: Sodium Chloride (Nacl 0.9% 1000 Ml) 1,000 mls @ 100 mls/hr IV DIRECT [facility]I Last Admin: 09/08/18 05:50 Dose: 100 mls/hr Documented by: Sodium Chloride (Nacl 0.9% 500 Ml) 500 mls @ 999 mls/hr IV ONCE ONE Stop: 09/08/18 13:15 Insulin Human Isoph/Insulin Regular (Humulin 70/30) 32 unit SUB-Q BIDDIAB [facility]I Insulin Human Lispro (Humalog) 0 unit SUB-Q ACHS [facility]I; Protocol Last Admin: 09/08/18 12:44 Dose: 6 unit Documented by: Labetalol HCl (Normodyne) 300 mg PO TID [facility]I Magnesium Hydroxide (Milk Of Magnesia) 30 ml PO Q4H PRN PRN Reason: Constipation Metoclopramide HCl (Reglan) 5 mg IV Q6H PRN PRN Reason: Nausea And Vomiting Ondansetron HCl (Zofran) 4 mg IV Q8H PRN PRN Reason: Nausea And Vomiting Oxycodone/Acetaminophen (Percocet 5/325) 1 tab PO Q4H PRN PRN Reason: Pain, Moderate (4-6) Sodium Chloride (Sodium Chloride Flush Syringe 10 Ml) 10 ml IV PRN PRN PRN Reason: LINE FLUSH Review of Systems All systems: negative (weakness) Exam - Vital Signs Vital signs: Vital Signs Pulse Resp BP Pulse Ox 102 H 13 189/99 99 09/05/18 21:16 09/05/18 21:16 09/05/18 21:16 09/05/18 21:16 - General Appearance General appearance: well-developed, appears stated age EENT: ATNC, PERRL, mucous membranes moist Neck: Present: neck supple Respiratory: Clear to Ascultation Heart: regular, S1S2 Gastrointestinal: Present: normoactive bowel sounds. Absent: tenderness, distended Integumentary: no rash, warm and dry Neurologic: no focal deficit, no asterixis, alert and oriented x3 Musculoskeletal: Present: other (no edema in BLE) Psychiatric: mood/affect appropriate, cooperative Results - Lab Results 09/08/18 06:09 09/08/18 06:09 Most recent lab results Calcium 8.8 mg/dL (8.4-10.2) 09/08/18 06:09 Phosphorus 1.60 mg/dL (2.5-4.5) L D 09/06/18 13:59 Magnesium 2.30 mg/dL (1.7-2.3) 09/06/18 13:59 Assessment and Plan acute kidney injury vs progression of CKD due to DM and HTN left sided weakness and facial droop poorly controlled DM HTN - will d/c HTCZ - cont IVF - will add labetalol 300 mg TID - urine lytes, eos and protein ordered - SPEP ordered - renally dose meds - strict I&O - daily weight Bob Henriquez MD [phone]
--- NOTE | 2018-09-08 15:30 | Progress Note ---
Subjective Date of service: 09/08/18 Principal diagnosis: Hyperosmolar nonketotic state; Hyponatremia; TIA/CVA; Acute kidney injury Interval history: suspect the etiology of the attack was diabetic state old strokes noted but no recent ( acute) stroke Objective - Vital Sign Vital Signs - 12hr 09/08/18 09/08/18 09/08/18 05:00 05:49 11:39 Temperature 97.7 F Pulse Rate 83 83 80 Respiratory 20 16 Rate Blood Pressure 160/81 160/81 170/108 O2 Sat by Pulse 97 94 Oximetry - Laboratory Findings CBC and BMP: 09/08/18 06:09 09/08/18 06:09 Abnormal Lab Findings: Abnormal Labs 09/05/18 09/05/18 09/05/18 00:00 00:00 20:57 Hgb MCHC RDW Lymph % (Auto) Seg Neutrophils % PT INR Sodium 131 L Potassium 2.8 L* Chloride 86.6 L BUN 37 H Creatinine 2.0 H Glucose 718 H* POC Glucose > 500 H Hemoglobin A1c Calcium Phosphorus 2.30 L Magnesium 2.50 H Albumin Triglycerides LDL Cholesterol Direct HDL Cholesterol 09/05/18 09/05/18 09/05/18 21:17 21:17 21:17 Hgb 14.4 H MCHC 35 H RDW 12.7 L Lymph % (Auto) Seg Neutrophils % 75.5 H PT 12.0 L INR 0.84 L Sodium 124 L D Potassium 3.0 L Chloride 81.1 L BUN 35 H Creatinine 2.5 H Glucose 1058 H* POC Glucose Hemoglobin A1c Calcium Phosphorus Magnesium Albumin Triglycerides LDL Cholesterol Direct HDL Cholesterol 09/05/18 09/06/18 09/06/18 23:52 01:25 02:09 Hgb MCHC RDW Lymph % (Auto) Seg Neutrophils % PT INR Sodium Potassium Chloride BUN Creatinine Glucose POC Glucose 438 H 378 H Hemoglobin A1c 14.0 H Calcium Phosphorus Magnesium Albumin Triglycerides LDL Cholesterol Direct HDL Cholesterol 09/06/18 09/06/18 09/06/18 02:39 03:13 04:06 Hgb MCHC RDW Lymph % (Auto) Seg Neutrophils % PT INR Sodium 136 L D Potassium 3.0 L 3.0 L Chloride 93.6 L 97.1 L BUN 34 H 32 H Creatinine 2.0 H 1.8 H Glucose 461 H 348 H POC Glucose 403 H Hemoglobin A1c Calcium 8.3 L Phosphorus Magnesium Albumin Triglycerides LDL Cholesterol Direct HDL Cholesterol 09/06/18 09/06/18 09/06/18 04:06 04:31 05:22 Hgb MCHC RDW Lymph % (Auto) Seg Neutrophils % PT INR Sodium Potassium Chloride BUN Creatinine Glucose POC Glucose 294 H 229 H Hemoglobin A1c Calcium Phosphorus Magnesium Albumin Triglycerides 398 H LDL Cholesterol Direct 42 L HDL Cholesterol 24 L 09/06/18 09/06/18 09/06/18 06:20 07:30 09:34 Hgb MCHC RDW Lymph % (Auto) Seg Neutrophils % PT INR Sodium Potassium Chloride BUN Creatinine Glucose POC Glucose 209 H 201 H 286 H Hemoglobin A1c Calcium Phosphorus Magnesium Albumin Triglycerides LDL Cholesterol Direct HDL Cholesterol 09/06/18 09/06/18 09/06/18 13:09 13:59 16:56 Hgb MCHC RDW Lymph % (Auto) Seg Neutrophils % PT INR Sodium 136 L Potassium Chloride BUN 26 H 25 H Creatinine 1.9 H 1.7 H Glucose 361 H 411 H POC Glucose 282 H Hemoglobin A1c Calcium Phosphorus 1.60 L D Magnesium Albumin Triglycerides LDL Cholesterol Direct HDL Cholesterol 09/06/18 09/06/18 09/06/18 17:17 21:30 22:58 Hgb MCHC RDW Lymph % (Auto) Seg Neutrophils % PT INR Sodium 134 L Potassium 3.4 L Chloride 97.7 L BUN 25 H Creatinine 1.6 H Glucose 493 H POC Glucose 389 H 401 H Hemoglobin A1c Calcium 8.3 L Phosphorus Magnesium Albumin Triglycerides LDL Cholesterol Direct HDL Cholesterol 09/07/18 09/07/18 09/07/18 00:17 03:57 07:43 Hgb MCHC RDW Lymph % (Auto) Seg Neutrophils % PT INR Sodium Potassium Chloride BUN Creatinine Glucose POC Glucose 418 H 267 H 243 H Hemoglobin A1c Calcium Phosphorus Magnesium Albumin Triglycerides LDL Cholesterol Direct HDL Cholesterol 09/07/18 09/07/18 09/07/18 13:16 16:17 21:47 Hgb MCHC RDW Lymph % (Auto) Seg Neutrophils % PT INR Sodium Potassium Chloride BUN Creatinine Glucose POC Glucose 262 H 328 H 351 H Hemoglobin A1c Calcium Phosphorus Magnesium Albumin Triglycerides LDL Cholesterol Direct HDL Cholesterol 09/08/18 09/08/18 09/08/18 06:09 06:09 08:03 Hgb MCHC 35 H RDW 12.7 L Lymph % (Auto) 42.2 H Seg Neutrophils % PT INR Sodium Potassium 3.1 L Chloride BUN 27 H Creatinine 1.9 H Glucose 278 H POC Glucose 291 H Hemoglobin A1c Calcium Phosphorus Magnesium Albumin 3.2 L Triglycerides LDL Cholesterol Direct HDL Cholesterol 09/08/18 11:30 Hgb MCHC RDW Lymph % (Auto) Seg Neutrophils % PT INR Sodium Potassium Chloride BUN Creatinine Glucose POC Glucose 295 H Hemoglobin A1c Calcium Phosphorus Magnesium Albumin Triglycerides LDL Cholesterol Direct HDL Cholesterol
[2018-09-08] MEDS: NORMODYNE PO SCH ×2 (16:19→23:24)
[2018-09-08 16:57] LABS: INR 0.74 (0.87-1.13)
[2018-09-08 16:59] LABS: Partial Thromboplastin Time 48.1 Sec. (24.2-36.6)
[2018-09-08 20:26] LABS: Creatinine,Urine 132.4 mg/dL (0.1-20.0)
[2018-09-08 20:31] LABS: Creatinine,Urine 135.8 mg/dL (0.1-20.0)
[2018-09-08 20:48] LABS: Protein/Creatinine Ratio,Urine 1.69
[2018-09-08] MEDS: CATAPRES PO SCH (23:30)
[2018-09-09] MEDS: NACL 0.9% 1000 ML 1,000 ML IV SCH ×2 (03:51→18:10)
[2018-09-09 05:45] LABS: Basophils % (Auto) 0.8 % (0.0-1.8); Eosinophils # (Auto) 0.2 K/mm3 (0.0-0.4); Eosinophils % (Auto) 2.8 % (0.0-4.3); Hematocrit 37.7 % (30.3-42.9); Hemoglobin 12.7 gm/dl (10.1-14.3); Lymphocytes # (Auto) 2.8 K/mm3 (1.2-5.4); Lymphocytes % (Auto) 46.4 % (13.4-35.0); Mean Corpuscular HGB Conc 34 % (30-34); Mean Corpuscular Hemoglobin 29 pg (28-32); Mean Corpuscular Volume 87 fl (79-97); Monocytes # (Auto) 0.4 K/mm3 (0.0-0.8); Platelet Count 323 K/mm3 (140-440); Red Blood Count 4.35 M/mm3 (3.65-5.03); Red Cell Distribution Width 12.7 % (13.2-15.2)
[2018-09-09 06:21] LABS: Calcium 8.4 mg/dL (8.4-10.2)
--- NOTE | 2018-09-09 08:13 | Progress Note ---
Subjective Date of service: 09/09/18 Principal diagnosis: Hyperosmolar nonketotic state; Hyponatremia; TIA/CVA; Acute kidney injury Interval history: see results of the PTT I will discuss with Mike. this could play role in microbleeds recommend avoid aspirin Objective - Vital Sign Vital Signs - 12hr 09/08/18 09/08/18 09/08/18 22:03 23:24 23:30 Temperature 98.1 F Pulse Rate 79 81 81 Respiratory 16 Rate Blood Pressure 131/85 131/85 131/85 O2 Sat by Pulse 100 Oximetry 09/09/18 09/09/18 00:00 05:10 Temperature 98.8 F Pulse Rate 74 Respiratory 16 20 Rate Blood Pressure 141/79 O2 Sat by Pulse 99 100 Oximetry - Laboratory Findings CBC and BMP: 09/09/18 04:24 09/09/18 04:24 Abnormal Lab Findings: Abnormal Labs 09/05/18 09/05/18 09/05/18 00:00 00:00 20:57 Hgb MCHC RDW Lymph % (Auto) Seg Neutrophils % PT INR APTT Sodium 131 L Potassium 2.8 L* Chloride 86.6 L BUN 37 H Creatinine 2.0 H Glucose 718 H* POC Glucose > 500 H Hemoglobin A1c Calcium Phosphorus 2.30 L Magnesium 2.50 H Albumin Triglycerides LDL Cholesterol Direct HDL Cholesterol Urine Creatinine Urine Total Protein 09/05/18 09/05/18 09/05/18 21:17 21:17 21:17 Hgb 14.4 H MCHC 35 H RDW 12.7 L Lymph % (Auto) Seg Neutrophils % 75.5 H PT 12.0 L INR 0.84 L APTT Sodium 124 L D Potassium 3.0 L Chloride 81.1 L BUN 35 H Creatinine 2.5 H Glucose 1058 H* POC Glucose Hemoglobin A1c Calcium Phosphorus Magnesium Albumin Triglycerides LDL Cholesterol Direct HDL Cholesterol Urine Creatinine Urine Total Protein 09/05/18 09/06/18 09/06/18 23:52 01:25 02:09 Hgb MCHC RDW Lymph % (Auto) Seg Neutrophils % PT INR APTT Sodium Potassium Chloride BUN Creatinine Glucose POC Glucose 438 H 378 H Hemoglobin A1c 14.0 H Calcium Phosphorus Magnesium Albumin Triglycerides LDL Cholesterol Direct HDL Cholesterol Urine Creatinine Urine Total Protein 09/06/18 09/06/18 09/06/18 02:39 03:13 04:06 Hgb MCHC RDW Lymph % (Auto) Seg Neutrophils % PT INR APTT Sodium 136 L D Potassium 3.0 L 3.0 L Chloride 93.6 L 97.1 L BUN 34 H 32 H Creatinine 2.0 H 1.8 H Glucose 461 H 348 H POC Glucose 403 H Hemoglobin A1c Calcium 8.3 L Phosphorus Magnesium Albumin Triglycerides LDL Cholesterol Direct HDL Cholesterol Urine Creatinine Urine Total Protein 09/06/18 09/06/18 09/06/18 04:06 04:31 05:22 Hgb MCHC RDW Lymph % (Auto) Seg Neutrophils % PT INR APTT Sodium Potassium Chloride BUN Creatinine Glucose POC Glucose 294 H 229 H Hemoglobin A1c Calcium Phosphorus Magnesium Albumin Triglycerides 398 H LDL Cholesterol Direct 42 L HDL Cholesterol 24 L Urine Creatinine Urine Total Protein 09/06/18 09/06/18 09/06/18 06:20 07:30 09:34 Hgb MCHC RDW Lymph % (Auto) Seg Neutrophils % PT INR APTT Sodium Potassium Chloride BUN Creatinine Glucose POC Glucose 209 H 201 H 286 H Hemoglobin A1c Calcium Phosphorus Magnesium Albumin Triglycerides LDL Cholesterol Direct HDL Cholesterol Urine Creatinine Urine Total Protein 09/06/18 09/06/18 09/06/18 13:09 13:59 16:56 Hgb MCHC RDW Lymph % (Auto) Seg Neutrophils % PT INR APTT Sodium 136 L Potassium Chloride BUN 26 H 25 H Creatinine 1.9 H 1.7 H Glucose 361 H 411 H POC Glucose 282 H Hemoglobin A1c Calcium Phosphorus 1.60 L D Magnesium Albumin Triglycerides LDL Cholesterol Direct HDL Cholesterol Urine Creatinine Urine Total Protein 09/06/18 09/06/18 09/06/18 17:17 21:30 22:58 Hgb MCHC RDW Lymph % (Auto) Seg Neutrophils % PT INR APTT Sodium 134 L Potassium 3.4 L Chloride 97.7 L BUN 25 H Creatinine 1.6 H Glucose 493 H POC Glucose 389 H 401 H Hemoglobin A1c Calcium 8.3 L Phosphorus Magnesium Albumin Triglycerides LDL Cholesterol Direct HDL Cholesterol Urine Creatinine Urine Total Protein 09/07/18 09/07/18 09/07/18 00:17 03:57 07:43 Hgb MCHC RDW Lymph % (Auto) Seg Neutrophils % PT INR APTT Sodium Potassium Chloride BUN Creatinine Glucose POC Glucose 418 H 267 H 243 H Hemoglobin A1c Calcium Phosphorus Magnesium Albumin Triglycerides LDL Cholesterol Direct HDL Cholesterol Urine Creatinine Urine Total Protein 09/07/18 09/07/18 09/07/18 13:16 16:17 21:47 Hgb MCHC RDW Lymph % (Auto) Seg Neutrophils % PT INR APTT Sodium Potassium Chloride BUN Creatinine Glucose POC Glucose 262 H 328 H 351 H Hemoglobin A1c Calcium Phosphorus Magnesium Albumin Triglycerides LDL Cholesterol Direct HDL Cholesterol Urine Creatinine Urine Total Protein 09/08/18 09/08/18 09/08/18 06:09 06:09 08:03 Hgb MCHC 35 H RDW 12.7 L Lymph % (Auto) 42.2 H Seg Neutrophils % PT INR APTT Sodium Potassium 3.1 L Chloride BUN 27 H Creatinine 1.9 H Glucose 278 H POC Glucose 291 H Hemoglobin A1c Calcium Phosphorus Magnesium Albumin 3.2 L Triglycerides LDL Cholesterol Direct HDL Cholesterol Urine Creatinine Urine Total Protein 09/08/18 09/08/18 09/08/18 11:30 16:00 16:35 Hgb MCHC RDW Lymph % (Auto) Seg Neutrophils % PT 10.8 L INR 0.74 L APTT 48.1 H Sodium Potassium Chloride BUN Creatinine Glucose POC Glucose 295 H 219 H Hemoglobin A1c Calcium Phosphorus Magnesium Albumin Triglycerides LDL Cholesterol Direct HDL Cholesterol Urine Creatinine Urine Total Protein 09/08/18 09/08/18 09/08/18 17:00 17:00 22:09 Hgb MCHC RDW Lymph % (Auto) Seg Neutrophils % PT INR APTT Sodium Potassium Chloride BUN Creatinine Glucose POC Glucose 292 H Hemoglobin A1c Calcium Phosphorus Magnesium Albumin Triglycerides LDL Cholesterol Direct HDL Cholesterol Urine Creatinine 132.4 H 135.8 H Urine Total Protein 229 H 09/09/18 09/09/18 09/09/18 04:24 04:24 07:33 Hgb MCHC RDW 12.7 L Lymph % (Auto) 46.4 H Seg Neutrophils % PT INR APTT Sodium Potassium Chloride BUN 30 H Creatinine 2.0 H Glucose 279 H POC Glucose 263 H Hemoglobin A1c Calcium Phosphorus Magnesium Albumin Triglycerides LDL Cholesterol Direct HDL Cholesterol Urine Creatinine Urine Total Protein
[2018-09-09] MEDS: HumaLOG SUB-Q SCH ×4 (08:36→23:19)
[2018-09-09] MEDS: LOVENOX SUB-Q SCH ×2 (09:40→09:43)
[2018-09-09] MEDS: ASPIRIN PO SCH ×2 (09:40→09:42)
[2018-09-09] MEDS: APRESOLINE PO SCH ×3 (09:41→22:00)
[2018-09-09] MEDS: NORVASC PO SCH ×2 (09:41→09:43)
[2018-09-09] MEDS: NORMODYNE PO SCH ×3 (09:42→22:02)
[2018-09-09] MEDS: CATAPRES PO SCH ×2 (09:42→22:01)
--- NOTE | 2018-09-09 12:17 | Progress Note ---
Assessment and Plan Assessment/Plan: Acute kidney injury vs progression of CKD due to DM and HTN Left sided weakness and facial droop Poorly controlled DM Hypertension -Renal function reviewed. Serum creatinine 2.0, yesterday's was 1.9, appears to be at baseline. -Discontinued Hydrochlorothiazide yesterday -On NS@ 100 ml/hr -On Labetalol 300 mg TID -Urine lytes reviewed -Urine eosinophils- none seen -Has protein in urine likely due to uncontrolled DM -SPEP-pending -Brain MRI- No acute infarct. Has chronic microbleeds. Neurology onboard. -Renally dose medications -Strict I&O monitoring -Obtain daily weights -Continue to monitor renal function -Follow-up with Nephrology outpatiently within 7 days of discharge Subjective Date of service: 09/09/18 Principal diagnosis: Hyperosmolar nonketotic state; Hyponatremia; TIA/CVA; Acute kidney injury Interval history: Patient seen sitting up in bed. States he did not know she had Diabetes Mellitus. No family at bedside. Objective - Vital Signs Vital signs: Vital Signs - 12hr 09/09/18 09/09/18 09/09/18 05:10 09:42 09:43 Temperature 98.8 F Pulse Rate 74 Respiratory 20 Rate Blood Pressure 141/79 144/80 144/80 O2 Sat by Pulse 100 Oximetry - General Appearance General appearance: well-developed, appears stated age, fatigue EENT: ATNC, PERRL, hearing intact, vision intact Neck: no JVD, supple Respiratory: Present: Decreased Breath Sounds Cardiology: regular, S1S2 Gastrointestinal: normoactive bowel sounds Integumentary: warm and dry Neurologic: alert and oriented x3 Musculoskeletal: other (no edema) Psychiatric: cooperative - Lab 09/09/18 04:24 09/09/18 04:24 Most recent lab results Calcium 8.4 mg/dL (8.4-10.2) 09/09/18 04:24 Phosphorus 3.90 mg/dL (2.5-4.5) 09/09/18 04:24 Magnesium 2.30 mg/dL (1.7-2.3) 09/06/18 13:59 Urine Creatinine 135.8 mg/dL (0.1-20.0) H 09/08/18 17:00 Urine Sodium 15 mmol/L 09/08/18 17:00 Urine Total Protein 229 mg/dL (5-11.8) H 09/08/18 17:00 Medications & Allergies - Medications Allergies/Adverse Reactions: Allergies No Known Allergies Allergy (Verified 09/27/17 16:32) Home Medications: Home Medications Medication Instructions Recorded Confirmed Last Taken Type amLODIPine [Norvasc] 10 mg PO QDAY #30 tablet 09/24/14 09/06/18 Unknown Rx Amlodipine Besylate 10 mg PO DAILY 09/06/18 09/06/18 Unknown History AtorvaSTATin [Lipitor] 80 mg PO DAILY 09/06/18 09/06/18 Unknown History hydroCHLOROthiazide [HCTZ] 25 mg PO QAM 09/06/18 09/06/18 Unknown History Active Medications: Generic Name Dose Route Start Last Admin Trade Name Freq PRN Reason Stop Dose Admin Acetaminophen 650 mg 09/05/18 23:18 Tylenol PO Q4H PRN Pain, Mild (1-3) Amlodipine Besylate 10 mg 09/07/18 10:00 09/09/18 09:43 Norvasc PO 10 mg DAILY CHIDI Administration Atorvastatin Calcium 80 mg 09/06/18 10:00 09/09/18 09:43 Lipitor PO 80 mg DAILY CHIDI Administration Bisacodyl 10 mg 09/05/18 23:18 Dulcolax MD QDAY PRN Constipation Clonidine HCl 0.1 mg 09/08/18 22:00 09/09/18 09:42 Catapres PO 0.1 mg Q12HR CHIDI Administration Dextrose 0 ml 09/05/18 23:22 D50w (25gm) Syringe IV ONCE PRN Hypoglycemia Enoxaparin Sodium 30 mg 09/06/18 10:00 09/09/18 09:43 Lovenox SUB-Q 30 mg QDAY CHIDI Administration Hydralazine HCl 5 mg 09/05/18 23:24 09/06/18 12:26 Apresoline IV 5 mg Q6H PRN Administration Hypertension Hydralazine HCl 50 mg 09/07/18 12:38 09/09/18 09:41 Apresoline PO Not Given Q8HR CHIDI Sodium Chloride 1,000 mls @ 100 mls/hr 09/05/18 23:45 09/09/18 03:51 Nacl 0.9% 1000 Ml IV 100 mls/hr DIRECT CHIDI Administration Insulin Human Isoph/Insulin Regular 32 unit 09/08/18 10:19 09/09/18 08:40 Humulin 70/30 SUB-Q 32 unit BIDDIAB CHIDI Administration Insulin Human Lispro 0 unit 09/06/18 11:30 09/09/18 08:36 Humalog SUB-Q 6 unit ACHS CHIDI Administration Protocol Labetalol HCl 300 mg 09/08/18 14:00 09/09/18 09:42 Normodyne PO 300 mg TID CHIDI Administration Magnesium Hydroxide 30 ml 09/05/18 23:18 Milk Of Magnesia PO Q4H PRN Constipation Metoclopramide HCl 5 mg 09/05/18 23:18 Reglan IV Q6H PRN Nausea And Vomiting Ondansetron HCl 4 mg 09/05/18 23:18 Zofran IV Q8H PRN Nausea And Vomiting Oxycodone/Acetaminophen 1 tab 09/06/18 15:34 Percocet 5/325 PO Q4H PRN Pain, Moderate (4-6) Sodium Chloride 10 ml 09/05/18 23:18 Sodium Chloride Flush Syringe 10 Ml IV PRN PRN LINE FLUSH
--- NOTE | 2018-09-09 12:45 | Progress Note ---
Assessment and Plan Assessment and plan: --Hyperosmolar nonketotic state;s/p insulin drip no acidosis, no ketosis, continue current management --Diabetes mellitus2; uncontrolled Increase 7030 insulin 36 units twice a day, ADA diet, sliding scale coverage Diabetic education, nutrition education, HbA1c 14 Possible home health nurse for disease monitoring --TIA/CVA; Neuro workup is in progress, continue neuro checks PT and OT rehabilitation, neurology following Workup so far MRI brain; no evidence of acute or subacute infarctions or hemorrhage Multiple chronic microbleed involving cerebrum cerebellum and brainstem Moderate chronic white matter microangiopathy Asymmetric left ventricular megaly uncertain etiology CT head negative Echocardiogram Carotid Doppler Aspirin due to chronic micro bleed --Malignant hypertension; present on admission Blood pressures moderate control, continue current antihypertensives Add when necessary medications --Hyponatremia; probably pseudohyponatremia secondary to hyperglycemia --Hypokalemia; replace per protocol and monitor levels --Acute kidney injury; secondary to ATN, trending down Vigorous IV hydration, monitor renal function, avoid nephrotoxins --Dyslipidemia; lipid-lowering medications, low-cholesterol diet --Obesity; BMI 30.2, advised weight reduction when medically stable --DVT prophylaxis; Lovenox Closely monitor the patient and adjust the management as needed Possible discharge in 1-2 days if stable History Interval history: Patient seen and examined medical record reviewed No new complaints vital signs reviewed Hospitalist Physical - Constitutional Vitals: Temp Pulse Resp BP Pulse Ox 98.8 F 74 20 144/80 100 09/09/18 05:10 09/09/18 05:10 09/09/18 05:10 09/09/18 09:43 09/09/18 05:10 General appearance: Present: no acute distress, well-nourished, obese - EENT Eyes: Present: PERRL, EOM intact - Neck Neck: Present: supple, normal ROM - Respiratory Respiratory effort: normal Respiratory: bilateral: diminished, negative: rales, rhonchi, wheezing - Cardiovascular Rhythm: regular Heart Sounds: Present: S1 & S2 - Extremities Extremities: no ischemia, No edema - Abdominal General gastrointestinal: soft, non-tender, non-distended, normal bowel sounds - Integumentary Integumentary: Present: clear, warm - Psychiatric Psychiatric: appropriate mood/affect, cooperative - Neurologic Neurologic: CNII-XII intact, moves all extremities Results - Labs CBC & Chem 7: 09/09/18 04:24 09/09/18 04:24 Labs: Laboratory Last Values WBC 6.1 K/mm3 (4.5-11.0) 09/09/18 04:24 RBC 4.35 M/mm3 (3.65-5.03) 09/09/18 04:24 Hgb 12.7 gm/dl (10.1-14.3) 09/09/18 04:24 Hct 37.7 % (30.3-42.9) 09/09/18 04:24 MCV 87 fl (79-97) 09/09/18 04:24 MCH 29 pg (28-32) 09/09/18 04:24 MCHC 34 % (30-34) 09/09/18 04:24 RDW 12.7 % (13.2-15.2) L 09/09/18 04:24 Plt Count 323 K/mm3 (140-440) 09/09/18 04:24 Lymph % (Auto) 46.4 % (13.4-35.0) H 09/09/18 04:24 [place] % (Auto) 6.0 % (0.0-7.3) 09/09/18 04:24 Eos % (Auto) 2.8 % (0.0-4.3) 09/09/18 04:24 Baso % (Auto) 0.8 % (0.0-1.8) 09/09/18 04:24 Lymph # 2.8 K/mm3 (1.2-5.4) 09/09/18 04:24 [place] # 0.4 K/mm3 (0.0-0.8) 09/09/18 04:24 Eos # 0.2 K/mm3 (0.0-0.4) 09/09/18 04:24 Baso # 0.0 K/mm3 (0.0-0.1) 09/09/18 04:24 Seg Neutrophils % 44.0 % (40.0-70.0) 09/09/18 04:24 Seg Neutrophils # 2.7 K/mm3 (1.8-7.7) 09/09/18 04:24 PT 10.8 Sec. (12.2-14.9) L 09/08/18 16:00 INR 0.74 (0.87-1.13) L 09/08/18 16:00 APTT 48.1 Sec. (24.2-36.6) H 09/08/18 16:00 Thrombin Time 19.3 Sec. (15.1-19.6) 09/05/18 21:17 Sodium 140 mmol/L (137-145) 09/09/18 04:24 Potassium 3.6 mmol/L (3.6-5.0) 09/09/18 04:24 Chloride 104.4 mmol/L (98-107) 09/09/18 04:24 Carbon Dioxide 22 mmol/L (22-30) 09/09/18 04:24 Anion Gap 17 mmol/L 09/09/18 04:24 BUN 30 mg/dL (7-17) H 09/09/18 04:24 Creatinine 2.0 mg/dL (0.7-1.2) H 09/09/18 04:24 Estimated GFR 32 ml/min 09/09/18 04:24 BUN/Creatinine Ratio 15 % 09/09/18 04:24 Glucose 279 mg/dL (65-100) H 09/09/18 04:24 POC Glucose 289 (70-105) H 09/09/18 11:38 Hemoglobin A1c 14.0 % (4-6) H 09/05/18 23:52 Calcium 8.4 mg/dL (8.4-10.2) 09/09/18 04:24 Phosphorus 3.90 mg/dL (2.5-4.5) 09/09/18 04:24 Magnesium 2.30 mg/dL (1.7-2.3) 09/06/18 13:59 Total Bilirubin 0.40 mg/dL (0.1-1.2) 09/08/18 06:09 AST 15 units/L (5-40) 09/08/18 06:09 ALT 24 units/L (7-56) 09/08/18 06:09 Alkaline Phosphatase 66 units/L (35-129) 09/08/18 06:09 Troponin T < 0.010 ng/mL (0.00-0.029) 09/05/18 21:17 Total Protein 6.3 g/dL (6.3-8.2) 09/08/18 06:09 Albumin 3.2 g/dL (3.9-5) L 09/08/18 06:09 Albumin/Globulin Ratio 1.0 % 09/08/18 06:09 Triglycerides 398 mg/dL (2-149) H 09/06/18 04:06 Cholesterol 112 mg/dL (50-199) 09/06/18 04:06 LDL Cholesterol Direct 42 mg/dL (50-130) L 09/06/18 04:06 HDL Cholesterol 24 mg/dL (40-59) L 09/06/18 04:06 Cholesterol/HDL Ratio 4.66 % 09/06/18 04:06 Urine Color Colorless (Yellow) 09/05/18 23:00 Urine Turbidity Clear (Clear) 09/05/18 23:00 Urine pH 7.0 (5.0-7.0) 09/05/18 23:00 Ur Specific [place] 1.020 (1.003-1.030) 09/05/18 23:00 Urine Protein 100 mg/dl mg/dL (Negative) 09/05/18 23:00 Urine Glucose (UA) >=500 mg/dL (Negative) 09/05/18 23:00 Urine Ketones Neg mg/dL (Negative) 09/05/18 23:00 Urine Blood Sm (Negative) 09/05/18 23:00 Urine Nitrite Neg (Negative) 09/05/18 23:00 Urine Bilirubin Neg (Negative) 09/05/18 23:00 Urine Urobilinogen < 2.0 mg/dL (<2.0) 09/05/18 23:00 Ur Leukocyte Esterase Neg (Negative) 09/05/18 23:00 Urine WBC (Auto) 1.0 /HPF (0.0-6.0) 09/05/18 23:00 Urine RBC (Auto) 2.0 /HPF (0.0-6.0) 09/05/18 23:00 U Epithel Cells (Auto) < 1.0 /HPF (0-13.0) 09/05/18 23:00 Urine Eosinophils None seen (None Seen) 09/08/18 17:00 Urine Creatinine 135.8 mg/dL (0.1-20.0) H 09/08/18 17:00 Protein/Creatinin Ratio 1.69 09/08/18 17:00 Urine Sodium 15 mmol/L 09/08/18 17:00 Urine Total Protein 229 mg/dL (5-11.8) H 09/08/18 17:00 Active Medications - Current Medications Current Medications: Generic Name Dose Route Start Last Admin Trade Name Freq PRN Reason Stop Dose Admin Acetaminophen 650 mg 09/05/18 23:18 Tylenol PO Q4H PRN Pain, Mild (1-3) Amlodipine Besylate 10 mg 09/07/18 10:00 09/09/18 09:43 Norvasc PO 10 mg DAILY CHIDI Administration Atorvastatin Calcium 80 mg 09/06/18 10:00 09/09/18 09:43 Lipitor PO 80 mg DAILY CHIDI Administration Bisacodyl 10 mg 09/05/18 23:18 Dulcolax IA QDAY PRN Constipation Clonidine HCl 0.1 mg 09/08/18 22:00 09/09/18 09:42 Catapres PO 0.1 mg Q12HR CHIDI Administration Dextrose 0 ml 09/05/18 23:22 D50w (25gm) Syringe IV ONCE PRN Hypoglycemia Enoxaparin Sodium 30 mg 09/06/18 10:00 09/09/18 09:43 Lovenox SUB-Q 30 mg QDAY CHIDI Administration Hydralazine HCl 5 mg 09/05/18 23:24 09/06/18 12:26 Apresoline IV 5 mg Q6H PRN Administration Hypertension Hydralazine HCl 50 mg 09/07/18 12:38 09/09/18 09:41 Apresoline PO Not Given Q8HR [facility] Sodium Chloride 1,000 mls @ 100 mls/hr 09/05/18 23:45 09/09/18 03:51 Nacl 0.9% 1000 Ml IV 100 mls/hr DIRECT CHIDI Administration Insulin Human Isoph/Insulin Regular 32 unit 09/08/18 10:19 09/09/18 08:40 Humulin 70/30 SUB-Q 32 unit BIDDIAB CHIDI Administration Insulin Human Lispro 0 unit 09/06/18 11:30 09/09/18 12:15 Humalog SUB-Q 6 unit ACHS CHIDI Administration Protocol Labetalol HCl 300 mg 09/08/18 14:00 09/09/18 09:42 Normodyne PO 300 mg TID CHIDI Administration Magnesium Hydroxide 30 ml 09/05/18 23:18 Milk Of Magnesia PO Q4H PRN Constipation Metoclopramide HCl 5 mg 09/05/18 23:18 Reglan IV Q6H PRN Nausea And Vomiting Ondansetron HCl 4 mg 09/05/18 23:18 Zofran IV Q8H PRN Nausea And Vomiting Oxycodone/Acetaminophen 1 tab 09/06/18 15:34 Percocet 5/325 PO Q4H PRN Pain, Moderate (4-6) Sodium Chloride 10 ml 09/05/18 23:18 Sodium Chloride Flush Syringe 10 Ml IV PRN PRN LINE FLUSH Nutrition/Malnutrition Assess - Dietary Evaluation Nutrition/Malnutrition Findings: Nutrition Notes Start: 09/07/18 16:21 Freq: Status: Active Protocol: Document 09/08/18 13:29 TW (Rec: 09/08/18 13:43 TW [id number]) Co-Sign 09/08/18 13:29 LP Nutrition Notes Initial or Follow up Assessment Current Diagnosis Acute Kidney Injury,Diabetes, Hypertension Current Diet Consistent CHO Labs/Tests BG 291 K 3.1 Pertinent Medications Reviewed Height 5 ft 1 in Weight 72.57 kg [place] Body Weight (kg) 47.72 BMI 30.2 Weight Status Obese Subjective/Other Information F/U for DM education. Pt reports not having prior DM education. Discussed with patient BG monitoring, CHO containing foods, appropriate CHO servings and importance of DM medication. Pt eating at time of visit, reports eating 100% of meals. Percent of energy/protein needs met: 100%/100% Burn Absent Trauma Absent Current % PO Good (75-100%) #1 Nutrition Diagnosis Food and nutrition-related knowledge deficit Etiology no prior DM education As Evidenced by Signs and Symptoms pt report of not having prior DM education, A1c of 14 Is patient on ventilator? No Is Patient Ambulatory and/or Out of Bed No REE-([facility]-confined to bed) [phone] Calculation Used for Recommendations [facility] Additional Notes pro: 44-59g/day (0.6-0.8g/kg) fluid: 1ml/kcal or per MD Nutrition Intervention Change Diet Order: Continue CHO consistent Teaching Recipient Patient Learning Readiness Good Teaching Methods Discussion,Handout Response to Teaching Verbalize understanding Education Handouts Provided CHO counting for people with DM, low carb snacks, DM class information Barriers to Learning Environmental,Social RD phone number provided Yes Patient aware of follow up options Yes Goal #1 Adhere to consistent CHO diet Goal #2 Improved BG lab values Anticipated Discharge Needs: CHO consistent Revisit per MD consult or patient Sign Off request:
--- NOTE | 2018-09-09 13:53 | Progress Note ---
Subjective Date of service: 09/09/18 Principal diagnosis: Hyperosmolar nonketotic state; Hyponatremia; TIA/CVA; Acute kidney injury Interval history: discussed with Sarah will check FDP Objective - Vital Sign Vital Signs - 12hr 09/09/18 09/09/18 09/09/18 05:10 09:42 09:43 Temperature 98.8 F Pulse Rate 74 Respiratory 20 Rate Blood Pressure 141/79 144/80 144/80 O2 Sat by Pulse 100 Oximetry 09/09/18 09/09/18 09:45 11:35 Temperature 98.1 F Pulse Rate 78 74 Respiratory 18 20 Rate Blood Pressure 144/80 115/70 O2 Sat by Pulse 99 96 Oximetry - Laboratory Findings CBC and BMP: 09/09/18 04:24 09/09/18 04:24 Abnormal Lab Findings: Abnormal Labs 09/05/18 09/05/18 09/05/18 00:00 00:00 20:57 Hgb MCHC RDW Lymph % (Auto) Seg Neutrophils % PT INR APTT Sodium 131 L Potassium 2.8 L* Chloride 86.6 L BUN 37 H Creatinine 2.0 H Glucose 718 H* POC Glucose > 500 H Hemoglobin A1c Calcium Phosphorus 2.30 L Magnesium 2.50 H Albumin Triglycerides LDL Cholesterol Direct HDL Cholesterol Urine Creatinine Urine Total Protein 09/05/18 09/05/18 09/05/18 21:17 21:17 21:17 Hgb 14.4 H MCHC 35 H RDW 12.7 L Lymph % (Auto) Seg Neutrophils % 75.5 H PT 12.0 L INR 0.84 L APTT Sodium 124 L D Potassium 3.0 L Chloride 81.1 L BUN 35 H Creatinine 2.5 H Glucose 1058 H* POC Glucose Hemoglobin A1c Calcium Phosphorus Magnesium Albumin Triglycerides LDL Cholesterol Direct HDL Cholesterol Urine Creatinine Urine Total Protein 09/05/18 09/06/18 09/06/18 23:52 01:25 02:09 Hgb MCHC RDW Lymph % (Auto) Seg Neutrophils % PT INR APTT Sodium Potassium Chloride BUN Creatinine Glucose POC Glucose 438 H 378 H Hemoglobin A1c 14.0 H Calcium Phosphorus Magnesium Albumin Triglycerides LDL Cholesterol Direct HDL Cholesterol Urine Creatinine Urine Total Protein 09/06/18 09/06/18 09/06/18 02:39 03:13 04:06 Hgb MCHC RDW Lymph % (Auto) Seg Neutrophils % PT INR APTT Sodium 136 L D Potassium 3.0 L 3.0 L Chloride 93.6 L 97.1 L BUN 34 H 32 H Creatinine 2.0 H 1.8 H Glucose 461 H 348 H POC Glucose 403 H Hemoglobin A1c Calcium 8.3 L Phosphorus Magnesium Albumin Triglycerides LDL Cholesterol Direct HDL Cholesterol Urine Creatinine Urine Total Protein 09/06/18 09/06/18 09/06/18 04:06 04:31 05:22 Hgb MCHC RDW Lymph % (Auto) Seg Neutrophils % PT INR APTT Sodium Potassium Chloride BUN Creatinine Glucose POC Glucose 294 H 229 H Hemoglobin A1c Calcium Phosphorus Magnesium Albumin Triglycerides 398 H LDL Cholesterol Direct 42 L HDL Cholesterol 24 L Urine Creatinine Urine Total Protein 09/06/18 09/06/18 09/06/18 06:20 07:30 09:34 Hgb MCHC RDW Lymph % (Auto) Seg Neutrophils % PT INR APTT Sodium Potassium Chloride BUN Creatinine Glucose POC Glucose 209 H 201 H 286 H Hemoglobin A1c Calcium Phosphorus Magnesium Albumin Triglycerides LDL Cholesterol Direct HDL Cholesterol Urine Creatinine Urine Total Protein 09/06/18 09/06/18 09/06/18 13:09 13:59 16:56 Hgb MCHC RDW Lymph % (Auto) Seg Neutrophils % PT INR APTT Sodium 136 L Potassium Chloride BUN 26 H 25 H Creatinine 1.9 H 1.7 H Glucose 361 H 411 H POC Glucose 282 H Hemoglobin A1c Calcium Phosphorus 1.60 L D Magnesium Albumin Triglycerides LDL Cholesterol Direct HDL Cholesterol Urine Creatinine Urine Total Protein 09/06/18 09/06/18 09/06/18 17:17 21:30 22:58 Hgb MCHC RDW Lymph % (Auto) Seg Neutrophils % PT INR APTT Sodium 134 L Potassium 3.4 L Chloride 97.7 L BUN 25 H Creatinine 1.6 H Glucose 493 H POC Glucose 389 H 401 H Hemoglobin A1c Calcium 8.3 L Phosphorus Magnesium Albumin Triglycerides LDL Cholesterol Direct HDL Cholesterol Urine Creatinine Urine Total Protein 09/07/18 09/07/18 09/07/18 00:17 03:57 07:43 Hgb MCHC RDW Lymph % (Auto) Seg Neutrophils % PT INR APTT Sodium Potassium Chloride BUN Creatinine Glucose POC Glucose 418 H 267 H 243 H Hemoglobin A1c Calcium Phosphorus Magnesium Albumin Triglycerides LDL Cholesterol Direct HDL Cholesterol Urine Creatinine Urine Total Protein 09/07/18 09/07/18 09/07/18 13:16 16:17 21:47 Hgb MCHC RDW Lymph % (Auto) Seg Neutrophils % PT INR APTT Sodium Potassium Chloride BUN Creatinine Glucose POC Glucose 262 H 328 H 351 H Hemoglobin A1c Calcium Phosphorus Magnesium Albumin Triglycerides LDL Cholesterol Direct HDL Cholesterol Urine Creatinine Urine Total Protein 09/08/18 09/08/18 09/08/18 06:09 06:09 08:03 Hgb MCHC 35 H RDW 12.7 L Lymph % (Auto) 42.2 H Seg Neutrophils % PT INR APTT Sodium Potassium 3.1 L Chloride BUN 27 H Creatinine 1.9 H Glucose 278 H POC Glucose 291 H Hemoglobin A1c Calcium Phosphorus Magnesium Albumin 3.2 L Triglycerides LDL Cholesterol Direct HDL Cholesterol Urine Creatinine Urine Total Protein 09/08/18 09/08/18 09/08/18 11:30 16:00 16:35 Hgb MCHC RDW Lymph % (Auto) Seg Neutrophils % PT 10.8 L INR 0.74 L APTT 48.1 H Sodium Potassium Chloride BUN Creatinine Glucose POC Glucose 295 H 219 H Hemoglobin A1c Calcium Phosphorus Magnesium Albumin Triglycerides LDL Cholesterol Direct HDL Cholesterol Urine Creatinine Urine Total Protein 09/08/18 09/08/18 09/08/18 17:00 17:00 22:09 Hgb MCHC RDW Lymph % (Auto) Seg Neutrophils % PT INR APTT Sodium Potassium Chloride BUN Creatinine Glucose POC Glucose 292 H Hemoglobin A1c Calcium Phosphorus Magnesium Albumin Triglycerides LDL Cholesterol Direct HDL Cholesterol Urine Creatinine 132.4 H 135.8 H Urine Total Protein 229 H 09/09/18 09/09/18 09/09/18 04:24 04:24 07:33 Hgb MCHC RDW 12.7 L Lymph % (Auto) 46.4 H Seg Neutrophils % PT INR APTT Sodium Potassium Chloride BUN 30 H Creatinine 2.0 H Glucose 279 H POC Glucose 263 H Hemoglobin A1c Calcium Phosphorus Magnesium Albumin Triglycerides LDL Cholesterol Direct HDL Cholesterol Urine Creatinine Urine Total Protein 09/09/18 11:38 Hgb MCHC RDW Lymph % (Auto) Seg Neutrophils % PT INR APTT Sodium Potassium Chloride BUN Creatinine Glucose POC Glucose 289 H Hemoglobin A1c Calcium Phosphorus Magnesium Albumin Triglycerides LDL Cholesterol Direct HDL Cholesterol Urine Creatinine Urine Total Protein
[2018-09-10] MEDS: NACL 0.9% 1000 ML 1,000 ML IV SCH ×3 (03:44→23:07)
[2018-09-10] MEDS: APRESOLINE PO SCH ×3 (07:03→22:15)
[2018-09-10 07:43] LABS: Basophils % (Auto) 0.8 % (0.0-1.8); Eosinophils # (Auto) 0.2 K/mm3 (0.0-0.4); Eosinophils % (Auto) 3.5 % (0.0-4.3); Hematocrit 37.1 % (30.3-42.9); Hemoglobin 12.8 gm/dl (10.1-14.3); Lymphocytes # (Auto) 2.2 K/mm3 (1.2-5.4); Lymphocytes % (Auto) 36.5 % (13.4-35.0); Mean Corpuscular HGB Conc 34 % (30-34); Mean Corpuscular Hemoglobin 30 pg (28-32); Mean Corpuscular Volume 86 fl (79-97); Monocytes # (Auto) 0.4 K/mm3 (0.0-0.8); Monocytes % (Auto) 6.2 % (0.0-7.3); Platelet Count 324 K/mm3 (140-440); Red Cell Distribution Width 12.8 % (13.2-15.2)
[2018-09-10 08:08] LABS: Calcium 8.2 mg/dL (8.4-10.2)
[2018-09-10] MEDS: HumaLOG SUB-Q SCH ×4 (09:11→22:19)
[2018-09-10] MEDS: NORMODYNE PO SCH ×3 (09:22→22:16)
[2018-09-10] MEDS: LOVENOX SUB-Q SCH (12:37)
[2018-09-10] MEDS: CATAPRES PO SCH ×2 (12:39→22:17)
[2018-09-10] MEDS: NORVASC PO SCH (12:48)
--- NOTE | 2018-09-10 12:49 | Progress Note ---
Assessment and Plan Assessment/Plan: Acute kidney injury vs progression of CKD due to DM and HTN Left sided weakness and facial droop Poorly controlled DM Hypertension -Renal function reviewed. Serum creatinine 1.8, yesterday's was 2.0 -On NS@ 100 ml/hr -On Labetalol 300 mg TID -Urine lytes reviewed -Urine eosinophils- none seen -Has protein in urine likely due to uncontrolled DM -SPEP-pending -Brain MRI- No acute infarct. Has chronic microbleeds. Neurology onboard. -Renally dose medications -Strict I&O monitoring -Obtain daily weights -Continue to monitor renal function -Follow-up with Nephrology outpatiently within 7 days of discharge Subjective Date of service: 09/10/18 Principal diagnosis: Hyperosmolar nonketotic state; Hyponatremia; TIA/CVA; Acute kidney injury Interval history: Patient seen sitting up in bed. Spoke to her over the phone regarding renal labs. Objective - Vital Signs Vital signs: Vital Signs - 12hr 09/10/18 09/10/18 09/10/18 04:48 07:03 09:22 Temperature 98.2 F Pulse Rate 77 74 77 Respiratory 20 Rate Blood Pressure 124/74 124/74 O2 Sat by Pulse 99 Oximetry 09/10/18 12:39 Temperature Pulse Rate 77 Respiratory Rate Blood Pressure 124/74 O2 Sat by Pulse Oximetry - General Appearance General appearance: well-developed, appears stated age, fatigue EENT: ATNC, PERRL, hearing intact, vision intact Neck: no JVD, supple Respiratory: Present: Clear to Ascultation Cardiology: regular, S1S2 Gastrointestinal: normoactive bowel sounds Integumentary: warm and dry Neurologic: alert and oriented x3 Musculoskeletal: other (No edema) Psychiatric: cooperative - Lab 09/10/18 07:02 09/10/18 07:02 Most recent lab results Calcium 8.2 mg/dL (8.4-10.2) L 09/10/18 07:02 Phosphorus 3.30 mg/dL (2.5-4.5) 09/10/18 07:02 Magnesium 2.00 mg/dL (1.7-2.3) 09/09/18 04:29 Urine Creatinine 135.8 mg/dL (0.1-20.0) H 09/08/18 17:00 Urine Sodium 15 mmol/L 09/08/18 17:00 Urine Total Protein 229 mg/dL (5-11.8) H 09/08/18 17:00 Medications & Allergies - Medications Allergies/Adverse Reactions: Allergies No Known Allergies Allergy (Verified 09/27/17 16:32) Home Medications: Home Medications Medication Instructions Recorded Confirmed Last Taken Type amLODIPine [Norvasc] 10 mg PO QDAY #30 tablet 09/24/14 09/06/18 Unknown Rx Amlodipine Besylate 10 mg PO DAILY 09/06/18 09/06/18 Unknown History AtorvaSTATin [Lipitor] 80 mg PO DAILY 09/06/18 09/06/18 Unknown History hydroCHLOROthiazide [HCTZ] 25 mg PO QAM 09/06/18 09/06/18 Unknown History Active Medications: Generic Name Dose Route Start Last Admin Trade Name Freq PRN Reason Stop Dose Admin Acetaminophen 650 mg 09/05/18 23:18 Tylenol PO Q4H PRN Pain, Mild (1-3) Amlodipine Besylate 10 mg 09/07/18 10:00 09/09/18 09:43 Norvasc PO 10 mg DAILY CHIDI Administration Atorvastatin Calcium 80 mg 09/06/18 10:00 09/10/18 12:38 Lipitor PO 80 mg DAILY CHIDI Administration Bisacodyl 10 mg 09/05/18 23:18 Dulcolax [place] QDAY PRN Constipation Clonidine HCl 0.1 mg 09/08/18 22:00 09/10/18 12:39 Catapres PO 0.1 mg Q12HR CHIDI Administration Dextrose 0 ml 09/05/18 23:22 D50w (25gm) Syringe IV ONCE PRN Hypoglycemia Enoxaparin Sodium 30 mg 09/06/18 10:00 09/10/18 12:37 Lovenox SUB-Q 30 mg QDAY CHIDI Administration Hydralazine HCl 5 mg 09/05/18 23:24 09/06/18 12:26 Apresoline IV 5 mg Q6H PRN Administration Hypertension Hydralazine HCl 50 mg 09/07/18 12:38 09/10/18 07:03 Apresoline PO 50 mg Q8HR CHIDI Administration Sodium Chloride 1,000 mls @ 100 mls/hr 09/05/18 23:45 09/10/18 03:44 Nacl 0.9% 1000 Ml IV 100 mls/hr DIRECT CHIDI Administration Insulin Human Isoph/Insulin Regular 38 unit 09/09/18 17:00 09/10/18 09:19 Humulin 70/30 SUB-Q 38 unit BIDDIAB CHIDI Administration Insulin Human Lispro 0 unit 09/06/18 11:30 09/10/18 12:35 Humalog SUB-Q 6 unit ACHS CHIDI Administration Protocol Labetalol HCl 300 mg 09/08/18 14:00 09/10/18 09:22 Normodyne PO 300 mg TID [facility] Administration Magnesium Hydroxide 30 ml 09/05/18 23:18 Milk Of Magnesia PO Q4H PRN Constipation Metoclopramide HCl 5 mg 09/05/18 23:18 Reglan IV Q6H PRN Nausea And Vomiting Ondansetron HCl 4 mg 09/05/18 23:18 Zofran IV Q8H PRN Nausea And Vomiting Oxycodone/Acetaminophen 1 tab 09/06/18 15:34 Percocet 5/325 PO Q4H PRN Pain, Moderate (4-6) Sodium Chloride 10 ml 09/05/18 23:18 Sodium Chloride Flush Syringe 10 Ml IV PRN PRN LINE FLUSH
--- NOTE | 2018-09-10 18:55 | Progress Note ---
Assessment and Plan Assessment and plan: --Hyperosmolar nonketotic state;s/p insulin drip no acidosis, no ketosis, continue current management --Diabetes mellitus2; uncontrolled Increase 7030 insulin 42 units twice a day, ADA diet, sliding scale coverage Diabetic education, nutrition education, HbA1c 14 Possible home health nurse for disease monitoring --TIA/CVA; Neuro workup is in progress, continue neuro checks PT and OT rehabilitation, neurology following Workup so far MRI brain; no evidence of acute or subacute infarctions or hemorrhage Multiple chronic microbleed involving cerebrum cerebellum and brainstem Moderate chronic white matter microangiopathy Asymmetric left ventricular megaly uncertain etiology CT head negative Echocardiogram Carotid Doppler Aspirin due to chronic micro bleed --Malignant hypertension; present on admission Blood pressures moderate control, continue current antihypertensives Add when necessary medications --Hyponatremia; probably pseudohyponatremia secondary to hyperglycemia --Hypokalemia; replace per protocol and monitor levels --Acute kidney injury; secondary to ATN, trending down Vigorous IV hydration, monitor renal function, avoid nephrotoxins --Dyslipidemia; lipid-lowering medications, low-cholesterol diet --Obesity; BMI 30.2, advised weight reduction when medically stable --DVT prophylaxis; Lovenox Closely monitor the patient and adjust the management as needed Possible discharge in 1-2 days if stable History Interval history: Sincerely and examined medical records reviewed Patient's blood sugars are uncontrolled Patient has a lot of outside food in the room, and is noncompliant with diet Alert awake oriented Vital signs Hospitalist Physical - Constitutional Vitals: Temp Pulse Resp BP Pulse Ox 98.0 F 82 18 101/61 99 09/10/18 17:56 09/10/18 17:56 09/10/18 17:56 09/10/18 17:56 09/10/18 17:56 General appearance: Present: no acute distress, well-nourished, obese - EENT Eyes: Present: PERRL, EOM intact - Neck Neck: Present: supple, normal ROM - Respiratory Respiratory effort: normal Respiratory: bilateral: diminished, negative: rales, rhonchi, wheezing - Cardiovascular Rhythm: regular Heart Sounds: Present: S1 & S2 - Extremities Extremities: no ischemia, No edema - Abdominal General gastrointestinal: soft, non-tender, non-distended, normal bowel sounds - Integumentary Integumentary: Present: clear, warm - Psychiatric Psychiatric: appropriate mood/affect, cooperative - Neurologic Neurologic: CNII-XII intact, moves all extremities Results - Labs CBC & Chem 7: 09/10/18 07:02 09/10/18 07:02 Labs: Laboratory Last Values WBC 5.9 K/mm3 (4.5-11.0) 09/10/18 07:02 RBC 4.30 M/mm3 (3.65-5.03) 09/10/18 07:02 Hgb 12.8 gm/dl (10.1-14.3) 09/10/18 07:02 Hct 37.1 % (30.3-42.9) 09/10/18 07:02 MCV 86 fl (79-97) 09/10/18 07:02 MCH 30 pg (28-32) 09/10/18 07:02 MCHC 34 % (30-34) 09/10/18 07:02 RDW 12.8 % (13.2-15.2) L 09/10/18 07:02 Plt Count 324 K/mm3 (140-440) 09/10/18 07:02 Lymph % (Auto) 36.5 % (13.4-35.0) H 09/10/18 07:02 [place] % (Auto) 6.2 % (0.0-7.3) 09/10/18 07:02 Eos % (Auto) 3.5 % (0.0-4.3) 09/10/18 07:02 Baso % (Auto) 0.8 % (0.0-1.8) 09/10/18 07:02 Lymph # 2.2 K/mm3 (1.2-5.4) 09/10/18 07:02 [place] # 0.4 K/mm3 (0.0-0.8) 09/10/18 07:02 Eos # 0.2 K/mm3 (0.0-0.4) 09/10/18 07:02 Baso # 0.0 K/mm3 (0.0-0.1) 09/10/18 07:02 Seg Neutrophils % 53.0 % (40.0-70.0) 09/10/18 07:02 Seg Neutrophils # 3.1 K/mm3 (1.8-7.7) 09/10/18 07:02 PT 10.8 Sec. (12.2-14.9) L 09/08/18 16:00 INR 0.74 (0.87-1.13) L 09/08/18 16:00 APTT 48.1 Sec. (24.2-36.6) H 09/08/18 16:00 Thrombin Time 19.3 Sec. (15.1-19.6) 09/05/18 21:17 Fibrinogen 439 mg/dl (211-480) 09/09/18 14:53 Sodium 140 mmol/L (137-145) 09/10/18 07:02 Potassium 4.0 mmol/L (3.6-5.0) 09/10/18 07:02 Chloride 106.3 mmol/L (98-107) 09/10/18 07:02 Carbon Dioxide 23 mmol/L (22-30) 09/10/18 07:02 Anion Gap 15 mmol/L 09/10/18 07:02 BUN 25 mg/dL (7-17) H 09/10/18 07:02 Creatinine 1.8 mg/dL (0.7-1.2) H 09/10/18 07:02 Estimated GFR 36 ml/min 09/10/18 07:02 BUN/Creatinine Ratio 14 % 09/10/18 07:02 Glucose 336 mg/dL (65-100) H 09/10/18 07:02 POC Glucose 306 (70-105) H 09/10/18 07:58 Hemoglobin A1c 14.0 % (4-6) H 09/05/18 23:52 Calcium 8.2 mg/dL (8.4-10.2) L 09/10/18 07:02 Phosphorus 3.30 mg/dL (2.5-4.5) 09/10/18 07:02 Magnesium 2.00 mg/dL (1.7-2.3) 09/09/18 04:29 Total Bilirubin 0.40 mg/dL (0.1-1.2) 09/08/18 06:09 AST 15 units/L (5-40) 09/08/18 06:09 ALT 24 units/L (7-56) 09/08/18 06:09 Alkaline Phosphatase 66 units/L (35-129) 09/08/18 06:09 Troponin T < 0.010 ng/mL (0.00-0.029) 09/05/18 21:17 Total Protein 6.3 g/dL (6.3-8.2) 09/08/18 06:09 Albumin 3.2 g/dL (3.9-5) L 09/08/18 06:09 Albumin/Globulin Ratio 1.0 % 09/08/18 06:09 Triglycerides 398 mg/dL (2-149) H 09/06/18 04:06 Cholesterol 112 mg/dL (50-199) 09/06/18 04:06 LDL Cholesterol Direct 42 mg/dL (50-130) L 09/06/18 04:06 HDL Cholesterol 24 mg/dL (40-59) L 09/06/18 04:06 Cholesterol/HDL Ratio 4.66 % 09/06/18 04:06 Urine Color Colorless (Yellow) 09/05/18 23:00 Urine Turbidity Clear (Clear) 09/05/18 23:00 Urine pH 7.0 (5.0-7.0) 09/05/18 23:00 Ur Specific [place] 1.020 (1.003-1.030) 09/05/18 23:00 Urine Protein 100 mg/dl mg/dL (Negative) 09/05/18 23:00 Urine Glucose (UA) >=500 mg/dL (Negative) 09/05/18 23:00 Urine Ketones Neg mg/dL (Negative) 09/05/18 23:00 Urine Blood Sm (Negative) 09/05/18 23:00 Urine Nitrite Neg (Negative) 09/05/18 23:00 Urine Bilirubin Neg (Negative) 09/05/18 23:00 Urine Urobilinogen < 2.0 mg/dL (<2.0) 09/05/18 23:00 Ur Leukocyte Esterase Neg (Negative) 09/05/18 23:00 Urine WBC (Auto) 1.0 /HPF (0.0-6.0) 09/05/18 23:00 Urine RBC (Auto) 2.0 /HPF (0.0-6.0) 09/05/18 23:00 U Epithel Cells (Auto) < 1.0 /HPF (0-13.0) 09/05/18 23:00 Urine Eosinophils None seen (None Seen) 09/08/18 17:00 Urine Creatinine 135.8 mg/dL (0.1-20.0) H 09/08/18 17:00 Protein/Creatinin Ratio 1.69 09/08/18 17:00 Urine Sodium 15 mmol/L 09/08/18 17:00 Urine Total Protein 229 mg/dL (5-11.8) H 09/08/18 17:00 Active Medications - Current Medications Current Medications: Generic Name Dose Route Start Last Admin Trade Name Freq PRN Reason Stop Dose Admin Acetaminophen 650 mg 09/05/18 23:18 Tylenol PO Q4H PRN Pain, Mild (1-3) Amlodipine Besylate 10 mg 09/07/18 10:00 09/10/18 12:48 Norvasc PO 10 mg DAILY CHIDI Administration Atorvastatin Calcium 80 mg 09/06/18 10:00 09/10/18 12:38 Lipitor PO 80 mg DAILY CHIDI Administration Bisacodyl 10 mg 09/05/18 23:18 Dulcolax [place] QDAY PRN Constipation Clonidine HCl 0.1 mg 09/08/18 22:00 09/10/18 12:39 Catapres PO 0.1 mg Q12HR CHIDI Administration Dextrose 0 ml 09/05/18 23:22 D50w (25gm) Syringe IV ONCE PRN Hypoglycemia Enoxaparin Sodium 30 mg 09/06/18 10:00 09/10/18 12:37 Lovenox SUB-Q 30 mg QDAY CHIDI Administration Hydralazine HCl 5 mg 09/05/18 23:24 09/06/18 12:26 Apresoline IV 5 mg Q6H PRN Administration Hypertension Hydralazine HCl 50 mg 09/07/18 12:38 09/10/18 17:28 Apresoline PO 50 mg Q8HR CHIDI Administration Sodium Chloride 1,000 mls @ 100 mls/hr 09/05/18 23:45 09/10/18 12:48 Nacl 0.9% 1000 Ml IV 100 mls/hr DIRECT CHIDI Administration Insulin Human Isoph/Insulin Regular 42 unit 09/10/18 17:00 09/10/18 17:41 Humulin 70/30 SUB-Q 42 unit BIDDIAB CHIDI Administration Insulin Human Lispro 0 unit 09/06/18 11:30 09/10/18 17:29 Humalog SUB-Q 4 unit ACHS CHIDI Administration Protocol Labetalol HCl 300 mg 09/08/18 14:00 09/10/18 17:28 Normodyne PO 300 mg TID CHIDI Administration Magnesium Hydroxide 30 ml 09/05/18 23:18 Milk Of Magnesia PO Q4H PRN Constipation Metoclopramide HCl 5 mg 09/05/18 23:18 Reglan IV Q6H PRN Nausea And Vomiting Ondansetron HCl 4 mg 09/05/18 23:18 Zofran IV Q8H PRN Nausea And Vomiting Oxycodone/Acetaminophen 1 tab 09/06/18 15:34 Percocet 5/325 PO Q4H PRN Pain, Moderate (4-6) Sodium Chloride 10 ml 09/05/18 23:18 Sodium Chloride Flush Syringe 10 Ml IV PRN PRN LINE FLUSH Nutrition/Malnutrition Assess - Dietary Evaluation Nutrition/Malnutrition Findings: Nutrition Notes Start: 09/07/18 16:21 Freq: Status: Active Protocol: Document 09/08/18 13:29 TW (Rec: 09/08/18 13:43 TW [id number]) Co-Sign 09/08/18 13:29 LP Nutrition Notes Initial or Follow up Assessment Current Diagnosis Acute Kidney Injury,Diabetes, Hypertension Current Diet Consistent CHO Labs/Tests BG 291 K 3.1 Pertinent Medications Reviewed Height 5 ft 1 in Weight 72.57 kg [place] Body Weight (kg) 47.72 BMI 30.2 Weight Status Obese Subjective/Other Information F/U for DM education. Pt reports not having prior DM education. Discussed with patient BG monitoring, CHO containing foods, appropriate CHO servings and importance of DM medication. Pt eating at time of visit, reports eating 100% of meals. Percent of energy/protein needs met: 100%/100% Burn Absent Trauma Absent Current % PO Good (75-100%) #1 Nutrition Diagnosis Food and nutrition-related knowledge deficit Etiology no prior DM education As Evidenced by Signs and Symptoms pt report of not having prior DM education, A1c of 14 Is patient on ventilator? No Is Patient Ambulatory and/or Out of Bed No REE-([facility]-confined to bed) [phone] Calculation Used for Recommendations [facility] Additional Notes pro: 44-59g/day (0.6-0.8g/kg) fluid: 1ml/kcal or per MD Nutrition Intervention Change Diet Order: Continue CHO consistent Teaching Recipient Patient Learning Readiness Good Teaching Methods Discussion,Handout Response to Teaching Verbalize understanding Education Handouts Provided CHO counting for people with DM, low carb snacks, DM class information Barriers to Learning Environmental,Social RD phone number provided Yes Patient aware of follow up options Yes Goal #1 Adhere to consistent CHO diet Goal #2 Improved BG lab values Anticipated Discharge Needs: CHO consistent Revisit per MD consult or patient Sign Off request:
[2018-09-11] MEDS: APRESOLINE PO SCH ×2 (05:35→15:58)
[2018-09-11 06:49] LABS: Calcium 8.2 mg/dL (8.4-10.2)
[2018-09-11] MEDS: HumaLOG SUB-Q SCH ×2 (08:48→12:36)
[2018-09-11] MEDS: NORMODYNE PO SCH ×2 (08:55→15:59)
--- NOTE | 2018-09-11 09:09 | Progress Note ---
Assessment and Plan Acute kidney injury vs progression of CKD due to DM and HTN Left sided weakness and facial droop Poorly controlled DM Hypertension -stable kidney function - will sign off, to be followed in my office as an outpatient upon discharge -Has protein in urine likely due to uncontrolled DM, SPEP-pending -Brain MRI- No acute infarct. Has chronic microbleeds. Neurology onboard. -Renally dose medications -Strict I&O monitoring -Obtain daily weights -Continue to monitor renal function Subjective Date of service: 09/11/18 Principal diagnosis: Hyperosmolar nonketotic state; Hyponatremia; TIA/CVA; Acute kidney injury Interval history: denies acute issues Objective - Vital Signs Vital signs: Vital Signs - 12hr 09/10/18 09/10/18 09/10/18 22:04 22:15 22:16 Temperature 98.0 F Pulse Rate 78 81 81 Respiratory 20 Rate Blood Pressure 113/61 116/68 116/68 O2 Sat by Pulse 99 Oximetry 09/10/18 09/11/18 09/11/18 22:17 04:21 05:35 Temperature 98.1 F Pulse Rate 81 82 104 H Respiratory 24 Rate Blood Pressure 116/68 138/80 121/82 O2 Sat by Pulse 100 Oximetry 09/11/18 08:55 Temperature Pulse Rate 104 H Respiratory Rate Blood Pressure 121/82 O2 Sat by Pulse Oximetry - General Appearance General appearance: well-developed, well-nourished EENT: ATNC, PERRL Neck: no JVD, no carotid bruit Respiratory: Present: Clear to Ascultation. Absent: Rales, [place] Cardiology: regular, S1S2 Gastrointestinal: normoactive bowel sounds, no tenderness, no distended Integumentary: no rash, warm and dry Neurologic: no focal deficit, no asterixis, alert and oriented x3 Musculoskeletal: other (no edema in BLE) Psychiatric: mood/affect appropriate, cooperative - Lab 09/10/18 07:02 09/11/18 05:22 Most recent lab results Calcium 8.2 mg/dL (8.4-10.2) L 09/11/18 05:22 Phosphorus 3.30 mg/dL (2.5-4.5) 09/10/18 07:02 Magnesium 2.00 mg/dL (1.7-2.3) 09/09/18 04:29 Urine Creatinine 135.8 mg/dL (0.1-20.0) H 09/08/18 17:00 Urine Sodium 15 mmol/L 09/08/18 17:00 Urine Total Protein 229 mg/dL (5-11.8) H 09/08/18 17:00 Medications & Allergies - Medications Allergies/Adverse Reactions: Allergies No Known Allergies Allergy (Verified 09/27/17 16:32) Home Medications: Home Medications Medication Instructions Recorded Confirmed Last Taken Type AtorvaSTATin [Lipitor] 80 mg PO DAILY 09/06/18 09/06/18 Unknown History Insulin NPH/Regular [NovoLIN 70/30] 42 unit SUB-Q BIDDIAB 30 Days 09/11/18 Unknown Rx units Insulin Regular, Human [Novolin R] See Protocol [place] ACHS 30 Days vial 09/11/18 Unknown Rx Labetalol [Normodyne TAB] 300 mg PO TID #90 tablet 09/11/18 Unknown Rx amLODIPine [Norvasc] 10 mg PO DAILY #30 tablet 09/11/18 Unknown Rx cloNIDine [Catapres] 0.1 mg PO Q12HR #60 tablet 09/11/18 Unknown Rx hydrALAZINE [Apresoline TAB] 50 mg PO Q8HR #90 tablet 09/11/18 Unknown Rx Active Medications: Generic Name Dose Route Start Last Admin Trade Name Freq PRN Reason Stop Dose Admin Acetaminophen 650 mg 09/05/18 23:18 Tylenol PO Q4H PRN Pain, Mild (1-3) Amlodipine Besylate 10 mg 09/07/18 10:00 09/10/18 12:48 Norvasc PO 10 mg DAILY CHIDI Administration Atorvastatin Calcium 80 mg 09/06/18 10:00 09/10/18 12:38 Lipitor PO 80 mg DAILY CHIDI Administration Bisacodyl 10 mg 09/05/18 23:18 Dulcolax [place] QDAY PRN Constipation Clonidine HCl 0.1 mg 09/08/18 22:00 09/10/18 22:17 Catapres PO 0.1 mg Q12HR CHIDI Administration Dextrose 0 ml 09/05/18 23:22 D50w (25gm) Syringe IV ONCE PRN Hypoglycemia Enoxaparin Sodium 30 mg 09/06/18 10:00 09/10/18 12:37 Lovenox SUB-Q 30 mg QDAY CHIDI Administration Hydralazine HCl 5 mg 09/05/18 23:24 09/06/18 12:26 Apresoline IV 5 mg Q6H PRN Administration Hypertension Hydralazine HCl 50 mg 09/07/18 12:38 09/11/18 05:35 Apresoline PO 50 mg Q8HR CHIDI Administration Sodium Chloride 1,000 mls @ 100 mls/hr 09/05/18 23:45 09/10/18 23:07 Nacl 0.9% 1000 Ml IV 100 mls/hr DIRECT CHIDI Administration Insulin Human Isoph/Insulin Regular 42 unit 09/10/18 17:00 09/11/18 08:48 Humulin 70/30 SUB-Q 42 unit BIDDIAB CHIDI Administration Insulin Human Lispro 0 unit 09/06/18 11:30 09/11/18 08:48 Humalog SUB-Q 6 unit ACHS CHIDI Administration Protocol Labetalol HCl 300 mg 09/08/18 14:00 09/11/18 08:55 Normodyne PO 300 mg TID CHIDI Administration Magnesium Hydroxide 30 ml 09/05/18 23:18 Milk Of Magnesia PO Q4H PRN Constipation Metoclopramide HCl 5 mg 09/05/18 23:18 Reglan IV Q6H PRN Nausea And Vomiting Ondansetron HCl 4 mg 09/05/18 23:18 Zofran IV Q8H PRN Nausea And Vomiting Oxycodone/Acetaminophen 1 tab 09/06/18 15:34 Percocet 5/325 PO Q4H PRN Pain, Moderate (4-6) Sodium Chloride 10 ml 09/05/18 23:18 Sodium Chloride Flush Syringe 10 Ml IV PRN PRN LINE FLUSH
[2018-09-11] MEDS: LOVENOX SUB-Q SCH (10:09)
[2018-09-11] MEDS: CATAPRES PO SCH (10:10)
[2018-09-11] MEDS: NORVASC PO SCH (10:11)
--- NOTE | 2018-09-11 12:08 | Discharge Summary ---
Providers - Providers Date of Admission: 09/05/18 23:18 Date of discharge: 09/11/18 Attending physician: GINO HARRY 09/05/18 Consult to Physician [CONS] Routine Comment: Consulting Provider: AMBROCIO MCCALL Physician Instructions: Reason For Exam: cc Consult to Physician [CONS] Routine Comment: Consulting Provider: IRINA ROMANO Physician Instructions: Reason For Exam: tia 09/05/18 22:55 Consult to Dietitian/Nutrition [CONS] Routine Physician Instructions: Reason For Exam: HHS Reason for Consult: Nutrition Recommendations Reason for Consult: Diet education 09/05/18 23:19 Occupational Therapy Evaluate and Treat [CONS] Routine Comment: Reason For Exam: Neuro deficits Physical Therapy Evaluation and Treat [CONS] Routine Comment: Reason For Exam: Neuro deficits 09/08/18 12:50 Consult to Physician [CONS] Routine Comment: Consulting Provider: CLEMENCIA BALDWIN Physician Instructions: Reason For Exam: Acute renal failure Primary care physician: FERMIN AMBROSE Hospitalization Reason for admission: slurring speech/uncontrolled diabetes Condition: Stable Hospital course: Discharge diagnosis: --Hyperosmolar nonketotic state;s/p insulin drip no acidosis, no ketosis, continue current management --Diabetes mellitus2; uncontrolled Increase 7030 insulin 42 units twice a day, ADA diet, sliding scale coverage Diabetic education, nutrition education, HbA1c 14 Possible home health nurse for disease monitoring --TIA Neuro workup is in progress, continue neuro checks PT and OT rehabilitation, neurology following Workup so far MRI brain; no evidence of acute or subacute infarctions or hemorrhage Multiple chronic microbleed involving cerebrum cerebellum and brainstem Moderate chronic white matter microangiopathy Asymmetric left ventricular megaly uncertain etiology CT head negative Echocardiogram Carotid Doppler No Aspirin due to chronic micro bleed --Malignant hypertension; present on admission Blood pressures moderate control, continue current antihypertensives Add when necessary medications --Hyponatremia; probably pseudohyponatremia secondary to hyperglycemia --Hypokalemia; replace per protocol and monitor levels --Acute kidney injury; secondary to ATN, trending down Vigorous IV hydration, monitor renal function, avoid nephrotoxins --Dyslipidemia; lipid-lowering medications, low-cholesterol diet --Obesity; BMI 30.2, advised weight reduction when medically stable --DVT prophylaxis; Lovenox Closely monitor the patient and adjust the management as needed Possible discharge in 1-2 days if stable Disposition: IN- TO HOME OR SELFCARE Time spent for discharge: 35 min Core Measure Documentation - Palliative Care Palliative Care/ Comfort Measures: Not Applicable - Core Measures Any of the following diagnoses?: none Exam - Constitutional Vitals: Temp Pulse Resp BP Pulse Ox 98.1 F 74 24 126/63 100 09/11/18 04:21 09/11/18 10:11 09/11/18 04:21 09/11/18 10:11 09/11/18 04:21 General appearance: Present: no acute distress, well-nourished, obese - EENT Eyes: Present: PERRL, EOM intact - Neck Neck: Present: supple, normal ROM - Respiratory Respiratory effort: normal Respiratory: bilateral: diminished, negative: rales, rhonchi, wheezing - Cardiovascular Rhythm: regular Heart Sounds: Present: S1 & S2 - Extremities Extremities: no ischemia, No edema - Abdominal General gastrointestinal: Present: soft, non-tender, non-distended, normal bowel sounds - Integumentary Integumentary: Present: clear, warm - Musculoskeletal Musculoskeletal: strength equal bilaterally - Psychiatric Psychiatric: appropriate mood/affect, cooperative - Neurologic Neurologic: CNII-XII intact, moves all extremities Plan Activity: no restrictions Diet: diabetic Additional Instructions: Advised complaint diabetic medications, diet and follow-up visits. Patient strongly advised to see [facility] [employer] for further evaluation and management of her diabetes mellitus. Advised exercise as tolerated and weight reduction when medically stable. Follow up with: FERMIN AMBROSE MD [Primary Care Provider] - 7 Days IRINA ROMANO MD [Staff Physician] - 7 Days CLEMENCIA BALDWIN MD [Staff Physician] - 7 Days Forms: Work/School Release Form Prescriptions: hydrALAZINE [Apresoline TAB] 50 mg PO Q8HR #90 tablet cloNIDine [Catapres] 0.1 mg PO Q12HR #60 tablet Labetalol [Normodyne TAB] 300 mg PO TID #90 tablet amLODIPine [Norvasc] 10 mg PO DAILY #30 tablet Insulin NPH/Regular [NovoLIN 70/30] 42 unit SUB-Q BIDDIAB 30 Days units Insulin Regular, Human [Novolin R] See Protocol [place] ACHS 30 Days vial Other Discharge Orders: Glucometer (Amb) Location: None Selected Glucometer supplies[Amb] Location: None Selected
[2018-09-11 15:16] VITALS: BP 116/62
--- NOTE | 2018-09-11 16:09 | Progress Note ---
Subjective Date of service: 09/11/18 Principal diagnosis: Hyperosmolar nonketotic state; Hyponatremia; TIA/CVA; Acute kidney injury Interval history: OK from my review to discharge the patient the fibrinogen level is normal therefore sysstem DIC seems unlikely suspecy cloytting disorder is from RF do not recommend aspirin therapy Objective - Vital Sign Vital Signs - 12hr 09/11/18 09/11/18 09/11/18 04:21 05:35 08:55 Temperature 98.1 F Pulse Rate 82 104 H 104 H Respiratory 24 Rate Blood Pressure 138/80 121/82 121/82 O2 Sat by Pulse 100 Oximetry 09/11/18 09/11/18 09/11/18 10:10 10:11 15:15 Temperature 98.0 F Pulse Rate 74 74 80 Respiratory 16 Rate Blood Pressure 126/63 126/63 116/62 O2 Sat by Pulse 99 Oximetry 09/11/18 09/11/18 15:58 15:59 Temperature Pulse Rate 80 80 Respiratory Rate Blood Pressure 116/62 116/62 O2 Sat by Pulse Oximetry - Laboratory Findings CBC and BMP: 09/10/18 07:02 09/11/18 05:22 Abnormal Lab Findings: Abnormal Labs 09/05/18 09/05/18 09/05/18 00:00 00:00 20:57 Hgb MCHC RDW Lymph % (Auto) Seg Neutrophils % PT INR APTT Sodium 131 L Potassium 2.8 L* Chloride 86.6 L BUN 37 H Creatinine 2.0 H Glucose 718 H* POC Glucose > 500 H Hemoglobin A1c Calcium Phosphorus 2.30 L Magnesium 2.50 H Albumin Triglycerides LDL Cholesterol Direct HDL Cholesterol Urine Creatinine Urine Total Protein 09/05/18 09/05/18 09/05/18 21:17 21:17 21:17 Hgb 14.4 H MCHC 35 H RDW 12.7 L Lymph % (Auto) Seg Neutrophils % 75.5 H PT 12.0 L INR 0.84 L APTT Sodium 124 L D Potassium 3.0 L Chloride 81.1 L BUN 35 H Creatinine 2.5 H Glucose 1058 H* POC Glucose Hemoglobin A1c Calcium Phosphorus Magnesium Albumin Triglycerides LDL Cholesterol Direct HDL Cholesterol Urine Creatinine Urine Total Protein 09/05/18 09/06/18 09/06/18 23:52 01:25 02:09 Hgb MCHC RDW Lymph % (Auto) Seg Neutrophils % PT INR APTT Sodium Potassium Chloride BUN Creatinine Glucose POC Glucose 438 H 378 H Hemoglobin A1c 14.0 H Calcium Phosphorus Magnesium Albumin Triglycerides LDL Cholesterol Direct HDL Cholesterol Urine Creatinine Urine Total Protein 09/06/18 09/06/18 09/06/18 02:39 03:13 04:06 Hgb MCHC RDW Lymph % (Auto) Seg Neutrophils % PT INR APTT Sodium 136 L D Potassium 3.0 L 3.0 L Chloride 93.6 L 97.1 L BUN 34 H 32 H Creatinine 2.0 H 1.8 H Glucose 461 H 348 H POC Glucose 403 H Hemoglobin A1c Calcium 8.3 L Phosphorus Magnesium Albumin Triglycerides LDL Cholesterol Direct HDL Cholesterol Urine Creatinine Urine Total Protein 09/06/18 09/06/18 09/06/18 04:06 04:31 05:22 Hgb MCHC RDW Lymph % (Auto) Seg Neutrophils % PT INR APTT Sodium Potassium Chloride BUN Creatinine Glucose POC Glucose 294 H 229 H Hemoglobin A1c Calcium Phosphorus Magnesium Albumin Triglycerides 398 H LDL Cholesterol Direct 42 L HDL Cholesterol 24 L Urine Creatinine Urine Total Protein 09/06/18 09/06/18 09/06/18 06:20 07:30 09:34 Hgb MCHC RDW Lymph % (Auto) Seg Neutrophils % PT INR APTT Sodium Potassium Chloride BUN Creatinine Glucose POC Glucose 209 H 201 H 286 H Hemoglobin A1c Calcium Phosphorus Magnesium Albumin Triglycerides LDL Cholesterol Direct HDL Cholesterol Urine Creatinine Urine Total Protein 09/06/18 09/06/18 09/06/18 13:09 13:59 16:56 Hgb MCHC RDW Lymph % (Auto) Seg Neutrophils % PT INR APTT Sodium 136 L Potassium Chloride BUN 26 H 25 H Creatinine 1.9 H 1.7 H Glucose 361 H 411 H POC Glucose 282 H Hemoglobin A1c Calcium Phosphorus 1.60 L D Magnesium Albumin Triglycerides LDL Cholesterol Direct HDL Cholesterol Urine Creatinine Urine Total Protein 09/06/18 09/06/18 09/06/18 17:17 21:30 22:58 Hgb MCHC RDW Lymph % (Auto) Seg Neutrophils % PT INR APTT Sodium 134 L Potassium 3.4 L Chloride 97.7 L BUN 25 H Creatinine 1.6 H Glucose 493 H POC Glucose 389 H 401 H Hemoglobin A1c Calcium 8.3 L Phosphorus Magnesium Albumin Triglycerides LDL Cholesterol Direct HDL Cholesterol Urine Creatinine Urine Total Protein 09/07/18 09/07/18 09/07/18 00:17 03:57 07:43 Hgb MCHC RDW Lymph % (Auto) Seg Neutrophils % PT INR APTT Sodium Potassium Chloride BUN Creatinine Glucose POC Glucose 418 H 267 H 243 H Hemoglobin A1c Calcium Phosphorus Magnesium Albumin Triglycerides LDL Cholesterol Direct HDL Cholesterol Urine Creatinine Urine Total Protein 09/07/18 09/07/18 09/07/18 13:16 16:17 21:47 Hgb MCHC RDW Lymph % (Auto) Seg Neutrophils % PT INR APTT Sodium Potassium Chloride BUN Creatinine Glucose POC Glucose 262 H 328 H 351 H Hemoglobin A1c Calcium Phosphorus Magnesium Albumin Triglycerides LDL Cholesterol Direct HDL Cholesterol Urine Creatinine Urine Total Protein 09/08/18 09/08/18 09/08/18 06:09 06:09 08:03 Hgb MCHC 35 H RDW 12.7 L Lymph % (Auto) 42.2 H Seg Neutrophils % PT INR APTT Sodium Potassium 3.1 L Chloride BUN 27 H Creatinine 1.9 H Glucose 278 H POC Glucose 291 H Hemoglobin A1c Calcium Phosphorus Magnesium Albumin 3.2 L Triglycerides LDL Cholesterol Direct HDL Cholesterol Urine Creatinine Urine Total Protein 09/08/18 09/08/18 09/08/18 11:30 16:00 16:35 Hgb MCHC RDW Lymph % (Auto) Seg Neutrophils % PT 10.8 L INR 0.74 L APTT 48.1 H Sodium Potassium Chloride BUN Creatinine Glucose POC Glucose 295 H 219 H Hemoglobin A1c Calcium Phosphorus Magnesium Albumin Triglycerides LDL Cholesterol Direct HDL Cholesterol Urine Creatinine Urine Total Protein 09/08/18 09/08/18 09/08/18 17:00 17:00 22:09 Hgb MCHC RDW Lymph % (Auto) Seg Neutrophils % PT INR APTT Sodium Potassium Chloride BUN Creatinine Glucose POC Glucose 292 H Hemoglobin A1c Calcium Phosphorus Magnesium Albumin Triglycerides LDL Cholesterol Direct HDL Cholesterol Urine Creatinine 132.4 H 135.8 H Urine Total Protein 229 H 09/09/18 09/09/18 09/09/18 04:24 04:24 07:33 Hgb MCHC RDW 12.7 L Lymph % (Auto) 46.4 H Seg Neutrophils % PT INR APTT Sodium Potassium Chloride BUN 30 H Creatinine 2.0 H Glucose 279 H POC Glucose 263 H Hemoglobin A1c Calcium Phosphorus Magnesium Albumin Triglycerides LDL Cholesterol Direct HDL Cholesterol Urine Creatinine Urine Total Protein 09/09/18 09/09/18 09/09/18 11:38 16:59 20:58 Hgb MCHC RDW Lymph % (Auto) Seg Neutrophils % PT INR APTT Sodium Potassium Chloride BUN Creatinine Glucose POC Glucose 289 H 314 H 303 H Hemoglobin A1c Calcium Phosphorus Magnesium Albumin Triglycerides LDL Cholesterol Direct HDL Cholesterol Urine Creatinine Urine Total Protein 09/10/18 09/10/18 09/10/18 07:02 07:02 07:58 Hgb MCHC RDW 12.8 L Lymph % (Auto) 36.5 H Seg Neutrophils % PT INR APTT Sodium Potassium Chloride BUN 25 H Creatinine 1.8 H Glucose 336 H POC Glucose 306 H Hemoglobin A1c Calcium 8.2 L Phosphorus Magnesium Albumin Triglycerides LDL Cholesterol Direct HDL Cholesterol Urine Creatinine Urine Total Protein 09/10/18 09/10/18 09/10/18 12:04 16:32 20:53 Hgb MCHC RDW Lymph % (Auto) Seg Neutrophils % PT INR APTT Sodium Potassium Chloride BUN Creatinine Glucose POC Glucose 259 H 202 H 189 H Hemoglobin A1c Calcium Phosphorus Magnesium Albumin Triglycerides LDL Cholesterol Direct HDL Cholesterol Urine Creatinine Urine Total Protein 09/11/18 09/11/18 09/11/18 05:22 08:05 11:57 Hgb MCHC RDW Lymph % (Auto) Seg Neutrophils % PT INR APTT Sodium Potassium Chloride 109.4 H BUN 28 H Creatinine 1.9 H Glucose 286 H POC Glucose 290 H 229 H Hemoglobin A1c Calcium 8.2 L Phosphorus Magnesium Albumin Triglycerides LDL Cholesterol Direct HDL Cholesterol Urine Creatinine Urine Total Protein
[2018-09-11] MEDS ORDERED: HumuLIN R SUB-Q SCH (22:00)
[2018-09-14 21:25] LABS: Albumin 2.7 g/dL (3.8-4.8); Gamma Globulin 0.8 g/dL (0.8-1.7)
== END 2018-09-11 17:54 | disposition home or self-care (01) | DRG 69 ==
LOC: ED 20:54 → CC1 23:18 → 4A 09-06 14:39 → 3A 09-06 14:41
PROVIDERS: ADMIT Internal Medicine; ATTEND Internal Medicine
DX: G45.9 Transient cerebral ischemic attack, unspecified (principal); N17.0 Acute kidney failure with tubular necrosis; E11.01 Type 2 diabetes mellitus with hyperosmolarity with coma; E87.1 Hypo-osmolality and hyponatremia; Z79.82 Long term (current) use of aspirin; Z79.899 Other long term (current) drug therapy; E78.5 Hyperlipidemia, unspecified; Z82.49 Family history of ischemic heart disease and other diseases of the circulatory system; Z98.51 Tubal ligation status; E87.6 Hypokalemia; E66.9 Obesity, unspecified; Z68.30 Body mass index [BMI] 30.0-30.9, adult; Z71.3 Dietary counseling and surveillance; I12.9 Hypertensive chronic kidney disease with stage 1 through stage 4 chronic kidney disease, or unspecified chronic kidney disease; E11.22 Type 2 diabetes mellitus with diabetic chronic kidney disease; N18.9 Chronic kidney disease, unspecified
CPT/HCPCS: 36415; 70450; 70551; 80048; 80053; 80061; 81001; 82024; 82570; 82962; 83036; 83735; 84100; 84156; 84165; 84300; 84484; 85025; 85384; 85610; 85670; 85730; 89050; 93005; 93010; 93306; 93880; G0378; A9270-GY; J0360; J1650; J1815; J2405; J3480; J7030; J7040; J7050

== ENCOUNTER 2019-06-24 17:14 | Inpatient (IN) | payer SELFPAY ==
[2019-06-24] MEDS ORDERED: LORazepam 2 MG/ML VIAL ONE (17:27)
[2019-06-24] MEDS ORDERED: FOSPHENYTOIN 500 MG PE/10 ML INJ IV STA (17:42)
--- NOTE | 2019-06-24 17:45 | Progress Note ---
Subjective Date of service: 06/24/19 Interval history: see dicated note and orders transmitted to ED nurse for seizure acutee stroke w/u and reviewed the Ct of head suspect the etiology wsas hyperglycemic see old record about one year ago had stroke w/u see / Tye's notes patient is post ictal after stroke in CT scan room seizure came under control after orders executed to give IV ativan no apsiration occured and VS were stable by monitored exam I suspect complication of diabetes BP will need to be addressed
--- NOTE | 2019-06-24 17:52 | Cat Scan Report ---
CT head without contrast INDICATION : neuro deficits <6hrs or sx present upon awakening. TECHNIQUE: Axial imaging performed from the skull apex through the skull base without the use of con trast. All CT scans at this location are performed using CT dose reduction for ALARA by means of aut omated exposure control. COMPARISON: None FINDINGS: Parenchyma: No acute intracranial hemorrhage or parenchymal abnormality. Ventricles: There is stable mild asymmetry between the ventricles. No acute abnormality. Soft tissues: Soft tissues including the orbits appear normal. Bones: No acute osseous abnormality. Sinuses: Sinuses and mastoid air cells are clear. IMPRESSION: No acute abnormality. Signer Name: Issac Miranda MD Signed: 06/24/2019 5:47 PM Workstation Name: [id number]
--- NOTE | 2019-06-24 17:53 | Consultation ---
Medications and Allergies Allergies Allergy/AdvReac Type Severity Reaction Status Date / Time No Known Allergies Allergy Verified 09/27/17 16:32 Home Medications Medication Instructions Recorded Confirmed Last Taken Type AtorvaSTATin [Lipitor] 80 mg PO DAILY 09/06/18 09/06/18 Unknown History Insulin NPH/Regular [NovoLIN 70/30] 42 unit SUB-Q BIDDIAB 30 Days 09/11/18 Unknown Rx units Insulin Regular, Human [Novolin R] See Protocol SC ACHS 30 Days vial 09/11/18 Unknown Rx amLODIPine 10 mg PO DAILY #30 tablet 09/11/18 Unknown Rx cloNIDine [Catapres] 0.1 mg PO Q12HR #60 tablet 09/11/18 Unknown Rx hydrALAZINE [Apresoline TAB] 50 mg PO Q8HR #90 tablet 09/11/18 Unknown Rx labetaloL [Labetalol 200mg TAB] 300 mg PO TID #90 tablet 09/11/18 Unknown Rx Assessment and Plan [facility] Date of Service: 06/24/2019 17:05:29 Impression: RO Acute Ischemic Stroke vs status epilepticus could be due to PRES (Posterior reversible encephalopathy syndrome) Comments: patient with history of stroke, Diabetes Mellitus, hypertension, is brought by EMS after witnessing seizure, then another seizure in CT scan suite, prior to second seizure exam was nonfocal, presentation is likely status epilepticus but since patient is now unresponsive, will need to rule our basilar occlusion. Mechanism of Stroke: Possible Thromboembolic Possible Cardioembolic Small Vessel Disease Metrics: Last Known Well: Unknown [facility] Notification Time: 06/24/2019 17:04:35 Arrival Time: 06/24/2019 17:14:00 Stamp Time: 06/24/2019 17:05:29 Time First Login Attempt: 06/24/2019 17:08:39 Video Start Time: 06/24/2019 17:08:39 Symptoms: seizure NIHSS Start Assessment Time: 06/24/2019 17:40:00 Patient is not a candidate for tPA. Patient was not deemed candidate for tPA thrombolytics because of last known well is unclear, presentation likely status epilepticus. Video End Time: 06/24/2019 17:50:50 CT head showed no acute hemorrhage or acute core infarct. CT head was reviewed. Advanced imaging CTA head and neck obtained. ER Physician notified of the decision on thrombolytics management on 06/24/2019 17:50:22 Our recommendations are outlined below. Recommendations: Activate Stroke Protocol Admission/Order Set Stroke/Telemetry Floor Neuro Checks Bedside Swallow Eval DVT Prophylaxis IV Fluids, Normal Saline Head of Bed Below 30 Degrees Euglycemia and Avoid Hyperthermia (PRN Acetaminophen) Antiplatelet Therapy Recommended Treatment of Convulsive Status Epilepticus in adults: Initial therapy In first IV: Lorazepam 0.1mg/kg IV or 4mg IV (max 2mg/minute) wait 1 minute for response then additional lorazepam prn. Alternative :Diazepam 0.15 mg/kg IV up to 10mg per dose (max 5mg/minute) If no IV line: Midazolam 10mg IM if weight>40kg In second IV: Fosphenytoin 20mg/kg PE at 100 to 150 mg PE/minute OR Phenytoin 20mg/kg at 25 to 50mg/minute OR Levatiracetam (keppra) 40 to 60 mg/kg (maximum 4500mg) over 15 minutes OR Valproic acid 30mg/kg at 10mg/kg/minute Secondary therapy Repeat fosphenytoin if given previously (5mg/kg PE) or choose among first line drugs not already given Intubation, continuous blood pressure and cardiac monitoring - EEG Recommended Scan: MRI Head with and Without Contrast Echocardiogram - Transthoracic Echocardiogram Lipid Panel to Be Obtained, if Not Done in the Last Three Months Therapies: Physical Therapy, Occupational Therapy, Speech Therapy Assessment When Applicable Dysphaghia Screen: Swallow Evaluation, Bedside NPO Until Swallow Evaluation DVT prophylaxis: SCDs, Pneumatic Compression Disposition: Follow up with Teleneurology Follow up Sign Out: Discussed with Emergency Department Provider History of Present Illness: Patient is a 48 year old Female. Patient was brought by EMS for symptoms of seizure Patient is a(n) 48 years old female , with history of stroke (no residual deficit), hypertension, Diabetes Mellitus last known well: unknown, EMS was called by her 10 years old daughter at 16:08 and at their arrival patient developed a seizure. presents after a seizure and has facial droop. EMS Blood Pressure: 220/110 EMS Blood Glucose: >600 She had another seizure in radiology suite and received Ativan 2mg IV CT head showed no acute hemorrhage or acute core infarct. CT head was reviewed. Examination: 1A: Level of Consciousness - Postures or Unresponsive + 3 1B: Ask Month and Age - Could Not Answer Either Question Correctly + 2 1C: Blink Eyes & Squeeze Hands - Performs 0 Tasks + 2 2: Test Horizontal Extraocular Movements - Normal + 0 3: Test Visual [place] - Bilateral Hemianopia + 3 4: Test Facial Palsy (Use Grimace if Obtunded) - Bilateral Complete paralysis (upper/lower face) + 3 5A: Test Left Arm Motor Drift - No Effort Against [place] + 3 5B: Test Right Arm Motor Drift - No Effort Against [place] + 3 6A: Test Left Leg Motor Drift - No Effort Against [place] + 3 6B: Test Right Leg Motor Drift - No Effort Against [place] + 3 7: Test Limb Ataxia (FNF/Heel-[place]ble) - No Ataxia + 0 8: Test Sensation - Normal; No sensory loss + 0 9: Test Language/Aphasia - Coma/Unresponsive + 3 10: Test Dysarthria - Mute/Anarthric + 2 11: Test Extinction/Inattention - No abnormality + 0 NIHSS Score: 30 Patient was informed the Neurology Consult would happen via TeleHealth consult by way of interactive audio and video telecommunications and consented to receiving care in this manner. Due to the immediate potential for life-threatening deterioration due to underlying acute neurologic illness, I spent 35 minutes providing critical care. This time includes time for face to face visit via telemedicine, review of medical records, imaging studies and discussion of findings with providers, the patient and/or family. Dr Enmanuel [facility] Case [id number]
[2019-06-24 17:56] LABS: Basophils # (Auto) 0.1 K/mm3 (0.0-0.1); Basophils % (Auto) 0.7 % (0.0-1.8); Eosinophils % (Auto) 0.3 % (0.0-4.3); Hemoglobin 14.8 gm/dl (10.1-14.3); Lymphocytes % (Auto) 19.5 % (13.4-35.0); Mean Corpuscular HGB Conc 35 % (30-34); Mean Corpuscular Volume 89 fl (79-97); Monocytes # (Auto) 0.3 K/mm3 (0.0-0.8); Monocytes % (Auto) 2.9 % (0.0-7.3); Platelet Count 437 K/mm3 (140-440); Red Blood Count 4.71 M/mm3 (3.65-5.03); Red Cell Distribution Width 12.6 % (13.2-15.2)
[2019-06-24 18:00] LABS: INR 0.9 (0.87-1.13)
[2019-06-24 18:01] LABS: Partial Thromboplastin Time 31.7 Sec. (24.2-36.6)
[2019-06-24 18:06] LABS: Calcium 9.3 mg/dL (8.4-10.2)
[2019-06-24] MEDS ORDERED: SODIUM CHLORIDE 0.9% 1000 ML 2,000 ML IV ONE (18:10)
[2019-06-24] MEDS ORDERED: SODIUM CHLORIDE 0.9% 1000 ML 2,000 ML ONE (18:20)
[2019-06-24] MEDS ORDERED: FOSPHENYTOIN 500 MG PE/10 ML INJ IV ONE (19:21)
--- NOTE | 2019-06-24 19:21 | Emergency Department Report ---
ED General Adult HPI - General Chief complaint: Hyperglycemia Stated complaint: POSS CVA Time Seen by Provider: 06/24/19 17:29 Source: patient, EMS Mode of arrival: Stretcher Limitations: No Limitations - History of Present Illness Initial comments: Patient presents to the emergency department with a chief complaint seizure-like activity. Patient states that her blood pressure was elevated this morning and that she had a seizure. Patient denies having history of seizures but does have a history of CVAs in the past. Due to the patient was seizure and having a severely elevated blood pressure a couple stroke was initiated prior to arrival. Patient was met at the door upon arrival. Patient is a mass QUESTIONS appropriately and has no neuro deficits. -: Sudden Severity scale (0 -10): 0 Improves with: none Worsens with: none Associated Symptoms: denies other symptoms Treatments Prior to Arrival: none - Related Data Home Medications Medication Instructions Recorded Confirmed Last Taken AtorvaSTATin [Lipitor] 80 mg PO DAILY 09/06/18 09/06/18 Unknown Previous Rx's Medication Instructions Recorded Last Taken Type Insulin NPH/Regular [NovoLIN 70/30] 42 unit SUB-Q BIDDIAB 30 Days 09/11/18 Unknown Rx units Insulin Regular, Human [Novolin R] See Protocol SC ACHS 30 Days vial 09/11/18 Unknown Rx amLODIPine 10 mg PO DAILY #30 tablet 09/11/18 Unknown Rx cloNIDine [Catapres] 0.1 mg PO Q12HR #60 tablet 09/11/18 Unknown Rx hydrALAZINE [Apresoline TAB] 50 mg PO Q8HR #90 tablet 09/11/18 Unknown Rx labetaloL [Labetalol 200mg TAB] 300 mg PO TID #90 tablet 09/11/18 Unknown Rx Allergies Allergy/AdvReac Type Severity Reaction Status Date / Time No Known Allergies Allergy Verified 09/27/17 16:32 ED Review of Systems ROS: Stated complaint: POSS CVA Other details as noted in HPI Constitutional: denies: chills, fever Eyes: denies: eye pain, eye discharge, vision change ENT: denies: ear pain, throat pain Respiratory: denies: cough, shortness of breath, wheezing Cardiovascular: denies: chest pain, palpitations Endocrine: no symptoms reported Gastrointestinal: denies: abdominal pain, nausea, diarrhea Genitourinary: denies: urgency, dysuria, discharge Musculoskeletal: denies: back pain, joint swelling, arthralgia Skin: denies: rash, lesions Neurological: denies: headache, weakness, paresthesias Psychiatric: denies: anxiety, depression Hematological/Lymphatic: denies: easy bleeding, easy bruising ED Past Medical Hx - Past Medical History Hx Hypertension: Yes Hx Congestive Heart Failure: No Hx Diabetes: Yes Hx Asthma: No Hx COPD: No Hx HIV: No - Surgical History Additional Surgical History: breast reduction - Social History Smoking Status: Unknown if ever smoked - Medications Home Medications: Home Medications Medication Instructions Recorded Confirmed Last Taken Type AtorvaSTATin [Lipitor] 80 mg PO DAILY 09/06/18 09/06/18 Unknown History Insulin NPH/Regular [NovoLIN 70/30] 42 unit SUB-Q BIDDIAB 30 Days 09/11/18 Unknown Rx units Insulin Regular, Human [Novolin R] See Protocol SC ACHS 30 Days vial 09/11/18 Unknown Rx amLODIPine 10 mg PO DAILY #30 tablet 09/11/18 Unknown Rx cloNIDine [Catapres] 0.1 mg PO Q12HR #60 tablet 09/11/18 Unknown Rx hydrALAZINE [Apresoline TAB] 50 mg PO Q8HR #90 tablet 09/11/18 Unknown Rx labetaloL [Labetalol 200mg TAB] 300 mg PO TID #90 tablet 09/11/18 Unknown Rx ED Physical Exam - General Limitations: No Limitations General appearance: alert, in no apparent distress - Head Head exam: Present: atraumatic, normocephalic - Eye Eye exam: Present: normal appearance, PERRL, EOMI - ENT ENT exam: Present: mucous membranes moist - Neck Neck exam: Present: normal inspection - Respiratory Respiratory exam: Present: normal lung sounds bilaterally. Absent: respiratory distress - Cardiovascular Cardiovascular Exam: Present: regular rate, normal rhythm. Absent: systolic murmur, diastolic murmur, rubs, gallop - GI/Abdominal GI/Abdominal exam: Present: soft, normal bowel sounds. Absent: distended, tenderness - Extremities Exam Extremities exam: Present: normal inspection - Back Exam Back exam: Present: normal inspection - Neurological Exam Neurological exam: Present: alert, oriented X3, CN II-XII intact. Absent: motor sensory deficit - Psychiatric Psychiatric exam: Present: normal affect, normal mood - Skin Skin exam: Present: warm, dry, intact, normal color. Absent: rash ED Medical Decision Making - Lab Data Result diagrams: 06/24/19 17:40 06/24/19 19:37 Lab Results 06/24/19 06/24/19 06/24/19 Range/Units 17:40 17:40 17:40 WBC 10.5 (4.5-11.0) K/mm3 RBC 4.71 (3.65-5.03) M/mm3 Hgb 14.8 H (10.1-14.3) gm/dl Hct 42.0 (30.3-42.9) % MCV 89 (79-97) fl MCH 31 (28-32) pg MCHC 35 H (30-34) % RDW 12.6 L (13.2-15.2) % Plt Count 437 (140-440) K/mm3 Lymph % (Auto) 19.5 (13.4-35.0) % [place] % (Auto) 2.9 (0.0-7.3) % Eos % (Auto) 0.3 (0.0-4.3) % Baso % (Auto) 0.7 (0.0-1.8) % Lymph # 2.0 (1.2-5.4) K/mm3 [place] # 0.3 (0.0-0.8) K/mm3 Eos # 0.0 (0.0-0.4) K/mm3 Baso # 0.1 (0.0-0.1) K/mm3 Seg Neutrophils % 76.6 H (40.0-70.0) % Seg Neutrophils # 8.0 H (1.8-7.7) K/mm3 PT 12.2 (12.2-14.9) Sec. INR 0.90 (0.87-1.13) APTT 31.7 (24.2-36.6) Sec. Thrombin Time (15.1-19.6) Sec. Sodium 126 L (137-145) mmol/L Potassium 2.9 L* (3.6-5.0) mmol/L Chloride 79.0 L (98-107) mmol/L Carbon Dioxide 18 L (22-30) mmol/L Anion Gap 32 mmol/L BUN 55 H (7-17) mg/dL Creatinine 3.1 H (0.7-1.2) mg/dL Estimated GFR 19 ml/min BUN/Creatinine Ratio 18 % Glucose 989 H* (65-100) mg/dL Calcium 9.3 (8.4-10.2) mg/dL Troponin T 0.010 (0.00-0.029) ng/mL 06/24/19 Range/Units 17:40 WBC (4.5-11.0) K/mm3 RBC (3.65-5.03) M/mm3 Hgb (10.1-14.3) gm/dl Hct (30.3-42.9) % MCV (79-97) fl MCH (28-32) pg MCHC (30-34) % RDW (13.2-15.2) % Plt Count (140-440) K/mm3 Lymph % (Auto) (13.4-35.0) % [place] % (Auto) (0.0-7.3) % Eos % (Auto) (0.0-4.3) % Baso % (Auto) (0.0-1.8) % Lymph # (1.2-5.4) K/mm3 [place] # (0.0-0.8) K/mm3 Eos # (0.0-0.4) K/mm3 Baso # (0.0-0.1) K/mm3 Seg Neutrophils % (40.0-70.0) % Seg Neutrophils # (1.8-7.7) K/mm3 PT (12.2-14.9) Sec. INR (0.87-1.13) APTT (24.2-36.6) Sec. Thrombin Time 16.8 (15.1-19.6) Sec. Sodium (137-145) mmol/L Potassium (3.6-5.0) mmol/L Chloride (98-107) mmol/L Carbon Dioxide (22-30) mmol/L Anion Gap mmol/L BUN (7-17) mg/dL Creatinine (0.7-1.2) mg/dL Estimated GFR ml/min BUN/Creatinine Ratio % Glucose (65-100) mg/dL Calcium (8.4-10.2) mg/dL Troponin T (0.00-0.029) ng/mL - EKG Data -: EKG Interpreted by In EKG shows normal: sinus rhythm Rate: tachycardia - Medical Decision Making The patient initial NIH was done upon arrival to the emergency department the patient had no acute deficits Upon returning from CT the patient became somnolent IV fosphenytoin given IV insulin drip IV fluids Critical Care Time: Yes Critical care time in (mins) excluding proc time.: 45 Critical care attestation.: If time is entered above; I have spent that time in minutes in the direct care of this critically ill patient, excluding procedure time. ED Disposition Clinical Impression: Diabetic hyperosmolar non-ketotic state, Acute renal failure, Seizure Disposition: OP ADMIT IP TO THIS HOSP Is pt being admited?: Yes Does the pt Need Aspirin: No Condition: Fair Instructions: Diabetes Mellitus Type 2 in Adults (ED) Referrals: PRIMARY CARE, [Primary Care Provider] - 3-5 Days - Assessment Assessment Interval: Baseline - Level of Consciousness 1a. Level of Consciousness: alert/keenly responsive - LOC Questions 1b. LOC Questions: answers both correctly - LOC Command 1c. LOC Commands: performs tasks correctly - Best Gaze 2. Best Gaze: normal - Visual 3. Visual: no visual loss - Facial Palsy 4. Facial Palsy: normal symmetrical movement - Motor Arm 5a. Motor Arm Left: no drift 5b. Motor Arm Right: no drift - Motor Leg 6a. Motor Leg Left: no drift 6b. Motor Leg Right: no drift - Limb Ataxia 7. Limb Ataxia: absent - Sensory 8. Sensory: normal - Best Language 9. Best Language: no aphasia - Dysarthria 10. Dysarthria: normal - Extinction and Inattention 11. Extinction/Inattention: no abnormality - Scoring Total Score: 0 Stroke Severity: No Stroke Symptoms
[2019-06-24] MEDS ORDERED: DEXTROSE 50% IN WATER (25GM) 50 ML SYRINGE IV PRN (19:23)
[2019-06-24] MEDS ORDERED: SODIUM CHLORIDE 0.9% 1000 ML 1,000 ML IV ONE ×2 (19:23→19:27)
[2019-06-24] MEDS ORDERED: INSULIN REGULAR, HUMAN 100 UNITS in SODIUM CHLORIDE 0.9% 99 ML IV SCH (20:00)
[2019-06-24 20:08] LABS: Calcium 8.3 mg/dL (8.4-10.2)
[2019-06-24 21:18] LABS: Calcium 8.6 mg/dL (8.4-10.2)
[2019-06-24] MEDS ORDERED: ONDANSETRON 4 MG/2 ML INJ IV PRN (21:58)
[2019-06-24] MEDS ORDERED: [UNRECOGNIZED DRUG - OTHER] IV ONE (22:00)
[2019-06-24] MEDS ORDERED: FOSPHENYTOIN IV ONE (22:00)
[2019-06-24] MEDS ORDERED: SODIUM CHLORIDE IV ONE (22:00)
[2019-06-24 23:52] LABS: Calcium 8.5 mg/dL (8.4-10.2)
--- NOTE | 2019-06-24 23:53 | History and Physical Report ---
History of Present Illness Date of examination: 06/24/19 Date of admission: 06/24/19 21:18 Chief complaint: Seizure-like activity History of present illness: 48-year-old female with known history of diabetes mellitus, hypertension and history of CVA in the past was brought into the emergency room by EMS having had seizure-like activity today. Patient has no known history of seizure disorder. Upon arrival in the emergency room was said to have had another seizure and was loaded with Cerebyx. Patient also had elevated blood pressure and a code stroke was called. Teleneurologist was consulted who recommended a full stroke work- up. However during the course of the evaluation the emergency room, blood sugar was said to be quite elevated. seizure-like activity was said to be probably secondary to the hyperglycemia. Initial blood sugar while in the emergency room was in the 900s. She has denied any headache or dizziness, no chest pain or shortness of breath, no fever or chills, no nausea vomiting, no urinary or fecal incontinence. Past History Past Medical History: diabetes, hypertension, stroke Past Surgical History: Other (Breast reduction) Social history: no significant social history Medications and Allergies Allergies Allergy/AdvReac Type Severity Reaction Status Date / Time No Known Allergies Allergy Verified 09/27/17 16:32 Home Medications Medication Instructions Recorded Confirmed Last Taken Type AtorvaSTATin [Lipitor] 80 mg PO DAILY 09/06/18 09/06/18 Unknown History Insulin NPH/Regular [NovoLIN 70/30] 42 unit SUB-Q BIDDIAB 30 Days 09/11/18 Unknown Rx units Insulin Regular, Human [Novolin R] See Protocol SC ACHS 30 Days vial 09/11/18 Unknown Rx amLODIPine 10 mg PO DAILY #30 tablet 09/11/18 Unknown Rx cloNIDine [Catapres] 0.1 mg PO Q12HR #60 tablet 09/11/18 Unknown Rx hydrALAZINE [Apresoline TAB] 50 mg PO Q8HR #90 tablet 09/11/18 Unknown Rx labetaloL [Labetalol 200mg TAB] 300 mg PO TID #90 tablet 09/11/18 Unknown Rx Active Meds: Active Medications Dextrose (D50w (25gm) Syringe) 0 ml IV Q30MIN PRN; Protocol PRN Reason: Hypoglycemia Insulin Human Regular 100 (units/ Sodium Chloride) 100 mls @ 1 mls/hr IV TITR CHIDI; Protocol Last Admin: 06/24/19 22:46 Dose: 8 units/hr, 8 mls/hr Documented by: Potassium Chloride/Dextrose/Sod Cl (D5w/0.45% Nacl/Kcl 20 Meq) 20 meq in 1,000 mls @ 125 mls/hr IV DIRECT CHIDI Ondansetron HCl (Zofran) 4 mg IV Q8H PRN PRN Reason: Nausea And Vomiting Sodium Chloride (Sodium Chloride Flush Syringe 10 Ml) 10 ml IV BID [facility] Last Admin: 06/24/19 22:35 Dose: 10 ml Documented by: Sodium Chloride (Sodium Chloride Flush Syringe 10 Ml) 10 ml IV PRN PRN PRN Reason: LINE FLUSH Review of Systems Neurological: other (Seizure-like activity) Exam - Constitutional General appearance: Present: no acute distress, well-nourished, obese - EENT Eyes: Present: PERRL, EOM intact ENT: hearing intact, clear oral mucosa, dentition normal - Neck Neck: Present: supple, normal ROM - Respiratory Respiratory effort: normal Respiratory: bilateral: CTA - Cardiovascular Rhythm: regular Heart Sounds: Present: S1 & S2 - Extremities Extremities: no ischemia, No edema, Full ROM Peripheral Pulses: within normal limits - Abdominal General gastrointestinal: Present: soft, non-tender, non-distended - Integumentary Integumentary: Present: clear, warm, dry - Musculoskeletal Musculoskeletal: strength equal bilaterally - Psychiatric Psychiatric: appropriate mood/affect, intact judgment & insight, cooperative - Neurologic Neurologic: CNII-XII intact, moves all extremities Results - Labs CBC & Chem 7: 06/24/19 17:40 06/25/19 02:12 Labs: Abnormal lab results 06/24/19 06/24/19 06/24/19 Range/Units 17:40 17:40 19:37 Hgb 14.8 H (10.1-14.3) gm/dl MCHC 35 H (30-34) % RDW 12.6 L (13.2-15.2) % Seg Neutrophils % 76.6 H (40.0-70.0) % Seg Neutrophils # 8.0 H (1.8-7.7) K/mm3 Sodium 126 L (137-145) mmol/L Potassium 2.9 L* (3.6-5.0) mmol/L Chloride 79.0 L (98-107) mmol/L Carbon Dioxide 18 L (22-30) mmol/L BUN 55 H (7-17) mg/dL Creatinine 3.1 H (0.7-1.2) mg/dL Glucose 989 H* 893 H* (65-100) mg/dL Calcium (8.4-10.2) mg/dL Magnesium (1.7-2.3) mg/dL 06/24/19 06/24/19 06/24/19 Range/Units 19:37 19:37 20:50 Hgb (10.1-14.3) gm/dl MCHC (30-34) % RDW (13.2-15.2) % Seg Neutrophils % (40.0-70.0) % Seg Neutrophils # (1.8-7.7) K/mm3 Sodium 126 L 128 L (137-145) mmol/L Potassium 3.4 L 3.3 L (3.6-5.0) mmol/L Chloride 87.5 L 89.9 L (98-107) mmol/L Carbon Dioxide 18 L 17 L (22-30) mmol/L BUN 54 H 52 H (7-17) mg/dL Creatinine 3.0 H 2.8 H (0.7-1.2) mg/dL Glucose 899 H* 815 H* (65-100) mg/dL Calcium 8.3 L (8.4-10.2) mg/dL Magnesium 2.40 H (1.7-2.3) mg/dL 06/24/19 06/24/19 Range/Units 22:55 22:55 Hgb (10.1-14.3) gm/dl MCHC (30-34) % RDW (13.2-15.2) % Seg Neutrophils % (40.0-70.0) % Seg Neutrophils # (1.8-7.7) K/mm3 Sodium 131 L (137-145) mmol/L Potassium (3.6-5.0) mmol/L Chloride 90.9 L (98-107) mmol/L Carbon Dioxide (22-30) mmol/L BUN 52 H (7-17) mg/dL Creatinine 2.7 H (0.7-1.2) mg/dL Glucose (65-100) mg/dL Calcium (8.4-10.2) mg/dL Magnesium 2.50 H (1.7-2.3) mg/dL Assessment and Plan - Patient Problems (1) Diabetic hyperosmolar non-ketotic state Current Visit: Yes Status: Acute Plan to address problem: Patient admitted into the intensive care unit and started on insulin drip and IV fluids. We will monitor blood glucose according to protocol. (2) Seizure Current Visit: Yes Status: Acute Plan to address problem: Patient has no known history of seizures. She has been loaded with Cerebyx. Will place on seizure precautions we will also place a consult to neurology for follow-up and further recommendation. (3) Hypertension Current Visit: Yes Status: Acute Plan to address problem: Blood pressure will be closely monitored and we will resume routine home medications once reconciled. (4) DVT prophylaxis Current Visit: No Status: Chronic Plan to address problem: Patient placed on subcutaneous heparin. (5) Full code status Current Visit: Yes Status: Acute
[2019-06-25 01:30] LABS: Calcium 8.9 mg/dL (8.4-10.2)
[2019-06-25] MEDS ORDERED: POTASSIUM CHLORIDE ER 20 MEQ TAB PO ONE ×4 (01:34→10:43)
--- NOTE | 2019-06-25 01:47 | Consultation ---
HISTORY OF PRESENT ILLNESS: This is a 48-year-old female presented by EMS for stroke alert. The patient was seen by [facility], spoke with the EMS. She apparently summoned EMS to her home after she became dizzy, disoriented. On presentation EMS tells me that she was somewhat slightly incoherent and had difficulty walking. Blood pressure initially checked was 220/110. It was not clear whether the patient took a blood pressure medication. She also stated that she had taken her insulin today, but her blood sugar check at that point was over the glucometers rating of 600. She then was noted to have a generalized seizure, transported by EMS to [facility], taken directly to CT scan room where she was transferred to the CT scan table. Almost immediately after positioning, the patient was in the CT scanner Gantry. The patient created an audible scream, then went into a generalized convulsion. She was taken out of the CT scan Gantry, received 2 mg of IV Ativan during this process. The patient's vital signs were monitored. She had strong pulse, good respirations. There is no evidence of hypoxia and absolutely no aspiration. The patient was postictal at that point, the seizures abated very quickly within about 30 seconds. She was placed back in the CT scanner with a CT scan was completed. 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 This has been previously noted on prior CT scans. I did not see any acute intracranial lesions. The REM white matter appeared normal. There is no evidence of any brain edema, no hemorrhage, no evidence of acute stroke. IMPRESSION: Obviously, this patient has a complication of diabetes with hyperglycemia yet to be determined with an accurate blood sugar check. Her blood pressure is also elevated. I think a CT scan is clear as far as acute stroke at this point. Certainly, I do not see any evidence of bleed or acute cranial trauma accounting for the seizure. The patient is to be transferred back to the Emergency Room where a more complete blood workup will be obtained and certainly an accurate measurement of blood sugar and assessment of blood pressure. JOB# [id number] JOSE/EVELYN
[2019-06-25 02:55] LABS: Calcium 8.9 mg/dL (8.4-10.2)
[2019-06-25] MEDS ORDERED: D5W/0.45% NACL/KCL 20 MEQ 20 MEQ/1,000 ML BAG IV ONE ×2 (03:17→12:52)
[2019-06-25] MEDS: D5W/0.45% NACL/KCL 20 MEQ 20 MEQ/1,000 ML BAG IV SCH ×2 (03:28→14:39)
[2019-06-25] MEDS ORDERED: MAGNESIUM HYDROXIDE (MOM) ORAL LIQD UDC PO PRN (04:20)
[2019-06-25] MEDS ORDERED: PROMETHAZINE 25 MG RECT SUPP PR PRN (04:20)
[2019-06-25] MEDS ORDERED: ACETAMINOPHEN 325 MG TAB PO PRN (04:20)
[2019-06-25] MEDS ORDERED: METOCLOPRAMIDE 10 MG TAB PO PRN (04:20)
[2019-06-25] MEDS: HEPARIN 5,000 UNIT/1 ML VIAL SUB-Q SCH ×2 (06:00→22:46)
[2019-06-25 06:19] LABS: Calcium 8.9 mg/dL (8.4-10.2)
--- NOTE | 2019-06-25 08:18 | Progress Note ---
Subjective Date of service: 06/25/19 Interval history: see my dictated neurology note during the code stroke and review odf CT at time of scan patient had brief witnesssed generalized seizure my opinion was this was hyperglycemia as aticvan quicly controlled seizure and this was NOT status epilepticus EEG ordered Objective - Vital Sign Vital Signs - 12hr 06/24/19 06/24/19 06/24/19 20:50 21:00 21:15 Pulse Rate 112 H 103 H 113 H Respiratory 11 L 15 15 Rate Blood Pressure 170/104 149/92 170/104 O2 Sat by Pulse 88 97 Oximetry 06/24/19 06/24/19 06/24/19 21:30 21:45 22:00 Pulse Rate 112 H 115 H 108 H Respiratory 19 17 18 Rate Blood Pressure 176/104 176/104 168/97 O2 Sat by Pulse 92 95 94 Oximetry 06/24/19 06/24/19 06/24/19 22:15 22:30 22:45 Pulse Rate 110 H 108 H 102 H Respiratory 13 19 17 Rate Blood Pressure 168/97 159/105 159/105 O2 Sat by Pulse 96 92 92 Oximetry 06/24/19 06/24/19 06/24/19 23:00 23:15 23:30 Pulse Rate 102 H 95 H 97 H Respiratory 17 16 20 Rate Blood Pressure 153/99 153/99 162/93 O2 Sat by Pulse 94 97 93 Oximetry 06/24/19 06/25/19 06/25/19 23:45 00:00 00:15 Pulse Rate 95 H 96 H 92 H Respiratory 16 18 16 Rate Blood Pressure 162/93 152/101 152/101 O2 Sat by Pulse 97 95 95 Oximetry 06/25/19 06/25/19 06/25/19 00:30 00:45 01:00 Pulse Rate 94 H 100 H 98 H Respiratory 19 19 14 Rate Blood Pressure 149/88 149/88 164/100 O2 Sat by Pulse 96 97 96 Oximetry 06/25/19 06/25/19 06/25/19 01:15 01:30 01:45 Pulse Rate 93 H 99 H 100 H Respiratory 17 14 16 Rate Blood Pressure 164/100 177/106 155/93 O2 Sat by Pulse 95 96 97 Oximetry 06/25/19 06/25/19 06/25/19 02:00 02:15 02:30 Pulse Rate 96 H 94 H 101 H Respiratory 12 14 19 Rate Blood Pressure 142/103 142/103 160/95 O2 Sat by Pulse 96 97 93 Oximetry 06/25/19 06/25/19 06/25/19 02:45 03:00 03:15 Pulse Rate 97 H 94 H 97 H Respiratory 20 17 16 Rate Blood Pressure 160/95 159/96 159/96 O2 Sat by Pulse 94 95 95 Oximetry 06/25/19 06/25/19 03:30 03:45 Pulse Rate 97 H 96 H Respiratory 17 16 Rate Blood Pressure 171/93 171/93 O2 Sat by Pulse 93 96 Oximetry - Laboratory Findings CBC and BMP: 06/24/19 17:40 06/25/19 07:13 Abnormal Lab Findings: Abnormal Labs 06/24/19 06/24/19 06/24/19 17:40 17:40 19:37 Hgb 14.8 H MCHC 35 H RDW 12.6 L Seg Neutrophils % 76.6 H Seg Neutrophils # 8.0 H Sodium 126 L Potassium 2.9 L* Chloride 79.0 L Carbon Dioxide 18 L BUN 55 H Creatinine 3.1 H Glucose 989 H* 893 H* POC Glucose Calcium Magnesium 06/24/19 06/24/19 06/24/19 19:37 19:37 20:50 Hgb MCHC RDW Seg Neutrophils % Seg Neutrophils # Sodium 126 L 128 L Potassium 3.4 L 3.3 L Chloride 87.5 L 89.9 L Carbon Dioxide 18 L 17 L BUN 54 H 52 H Creatinine 3.0 H 2.8 H Glucose 899 H* 815 H* POC Glucose Calcium 8.3 L Magnesium 2.40 H 06/24/19 06/24/19 06/25/19 22:55 22:55 00:04 Hgb MCHC RDW Seg Neutrophils % Seg Neutrophils # Sodium 131 L Potassium 2.8 L* Chloride 90.9 L Carbon Dioxide BUN 52 H Creatinine 2.7 H Glucose 773 H* POC Glucose 489 H Calcium Magnesium 2.50 H 06/25/19 06/25/19 06/25/19 00:35 01:07 02:12 Hgb MCHC RDW Seg Neutrophils % Seg Neutrophils # Sodium 136 L Potassium 2.7 L* 2.8 L* Chloride 94.2 L Carbon Dioxide BUN 48 H 46 H Creatinine 2.7 H 2.6 H Glucose 548 H* 348 H POC Glucose 444 H Calcium Magnesium 06/25/19 06/25/19 06/25/19 02:19 03:13 04:28 Hgb MCHC RDW Seg Neutrophils % Seg Neutrophils # Sodium Potassium Chloride Carbon Dioxide BUN Creatinine Glucose POC Glucose 323 H 258 H 473 H Calcium Magnesium 06/25/19 06/25/19 06/25/19 05:33 05:45 06:42 Hgb MCHC RDW Seg Neutrophils % Seg Neutrophils # Sodium Potassium 2.8 L* Chloride Carbon Dioxide BUN 45 H Creatinine 2.4 H Glucose POC Glucose 111 H 117 H Calcium Magnesium 06/25/19 06/25/19 07:13 07:51 Hgb MCHC RDW Seg Neutrophils % Seg Neutrophils # Sodium Potassium Chloride Carbon Dioxide BUN Creatinine Glucose 163 H POC Glucose 187 H Calcium Magnesium
--- NOTE | 2019-06-25 10:14 | Magnetic Resonance Report ---
NONENHANCED MR SCAN OF THE BRAIN: INDICATION / CLINICAL INFORMATION: Fainting; left arm weakness and tremors TECHNIQUE: Multiplanar, multisequence MR images of the brain were noncontrast MRI brain normal brain MR obtained . COMPARISON: CT scan of the brain from 06/24/2019 FINDINGS: BRAIN / INTRACRANIAL CONTENTS: Some of the imaging sequences are marred by motion related artifacts. No acute ischemia, acute hemorrhage, mass effect, midline shift, or hydrocephalus. In the gradient e cho images, multiple lesions with susceptibility changes are seen in the cerebellar hemispheres, brai nstem and in both cerebral hemispheres. If there is history of hypertension, these could be due to h ypertensive microangiopathy. Other diagnostic considerations are multiple cavernoma syndrome, neurocy sticercosis, changes from disseminated intravascular coagulopathy and if there is history of malignan cy, hemorrhagic metastases. Deep hemispheric white matter lesions are seen in both cerebral hemispheres. Some of these white kasey er lesions are seen along the callosal septal angle (Canseco finger appearance). There are also 2 foca l lesions in the corpus callosum, in the genu and in the corpus callosum splenium. 2 diagnostic consi derations for the white matter lesions are considering the age, demyelinating lesions and if there is history of hypertension, microvascular angiopathy. CRANIOCERVICAL JUNCTION: No significant abnormality. VASCULAR FLOW-VOIDS: No significant abnormality. ORBITS: No significant abnormality of visualized orbits. SINUSES / MASTOIDS: No significant abnormality of visualized sinuses and mastoid air cells. ADDITIONAL FINDINGS: None. IMPRESSION: 1. No acute/subacute ischemia Multiple focal lesions with susceptibility changes Hypertensive microangiopathy Deep hemispheric white matter lesions in both cerebral hemispheres Microvascular angiopathy Demyelina ting plaques Signer Name: Roberto Romero MD Signed: 06/25/2019 10:09 AM Workstation Name: [id number]
[2019-06-25] MEDS ORDERED: ASPIRIN 325 MG TAB ONE ×2 (10:43→11:33)
[2019-06-25] MEDS ORDERED: MAGNESIUM SULFATE 1 GM in SODIUM CHLORIDE 0.9% 50 ML IV ONE (11:00)
[2019-06-25] MEDS: ASPIRIN 325 MG TAB PO SCH (11:16)
[2019-06-25] MEDS: POTASSIUM CHLORIDE 10 MEQ 10 MEQ/100 ML BAG IV SCH ×4 (11:19→15:38)
[2019-06-25] MEDS ORDERED: POTASSIUM CHLORIDE 10 MEQ 10 MEQ/100 ML BAG IV ONE ×4 (11:20→15:15)
--- NOTE | 2019-06-25 11:20 | Vascular Lab Report ---
BILATERAL CAROTID DOPPLER ULTRASOUND INDICATION : stroke TECHNIQUE: Grayscale and color Doppler imaging performed through the neck. COMPARISON: None FINDINGS: Right: There is no significant atherosclerotic disease. Peak systolic velocity in the CCA is 71 cm/ s with end-diastolic velocity of 13 cm/s. Peak systolic velocity in the proximal ICA is 96 cm/s with end-diastolic velocity of 32 cm/s. ICA to CCA ratio is less than 2. There is antegrade flow in the E CA and the vertebral artery. Left: There is no significant atherosclerotic disease. Peak systolic velocity in the CCA is 81 cm/s w ith end-diastolic velocity of 20 cm/s. Peak systolic velocity in the proximal ICA is 87 cm/s with end -diastolic velocity of 22 cm/s. ICA to CCA ratio is less than 2. There is antegrade flow in the ECA and the vertebral artery. IMPRESSION: No hemodynamically significant stenosis by NASCET criteria. Signer Name: Maksim Durán Jr, MD Signed: 06/25/2019 11:16 AM Workstation Name: [id number]
--- NOTE | 2019-06-25 15:15 | Progress Note ---
Assessment and Plan Assessment and plan: 48-year-old female with known history of diabetes mellitus, hypertension and history of CVA in the past was brought into the emergency room by EMS having had seizure-like activity today. Patient has no known history of seizure disorder. Upon arrival in the emergency room was said to have had another seizure and was loaded with Cerebyx. Patient also had elevated blood pressure and a code stroke was called. Teleneurologist was consulted who recommended a full stroke work- up. However during the course of the evaluation the emergency room, blood sugar was said to be quite elevated. seizure-like activity was said to be probably secondary to the hyperglycemia. Initial blood sugar while in the emergency room was in the 900s. She has denied any headache or dizziness, no chest pain or shortness of breath, no fever or chills, no nausea vomiting, no urinary or fecal incontinence. Diabetic hyperosmolar nonketotic state Seizure likely secondary to hyperglycemia ERENDIRA with possible underlying CKD unknown baseline possible vasomotor nephropathy with underlying diabetic nephropathy Hypertension Metabolic acidosis PLAN Patients gap is improved will discontinue insulin drip and downgrade the patient extensive counselling provided unfortunately baseline is unknown, RENAL FUNCTION CONSULT NEPHROLOGY No further seizure activity, on discharge will follow with Neurology DVT/GI PROPHY History Interval history: Patient seen and examined, and rested no new complaints. States that she is hungry. She reports that she had run out of her medications for her diabetes. She was taking some medication but not sure that she was on diabetic medications. Hospitalist Physical - Physical exam Narrative exam: VITAL SIGNS: Reviewed. GENERAL: The patient appears normally developed, Vital signs as documented. HEAD: No signs of head trauma. EYES: Pupils are equal. Extraocular motions intact. EARS: Hearing grossly intact. MOUTH: Oropharynx is normal. NECK: No adenopathy, no JVD. CHEST: Chest with clear breath sounds bilaterally. No wheezes, rales, or rhonchi. CARDIAC: Regular rate and rhythm. S1 and S2, without murmurs, gallops, or rubs. VASCULAR: No Edema. Peripheral pulses normal and equal in all extremities. ABDOMEN: Soft, non tender and non distended. No rebound or guarding, and no masses palpated. Bowel Sounds normal. MUSCULOSKELETAL: Good range of motion of all major joints. Extremities without clubbing, cyanosis or edema. NEUROLOGIC EXAM: Alert and oriented x 3 No focal sensory or strength deficits. Speech normal. Follows commands. PSYCHIATRIC: Mood normal. SKIN: detial exam as documented in skin assessment - Constitutional Vitals: Temp Pulse Resp BP Pulse Ox 97.8 F 89 23 131/73 98 06/25/19 10:58 06/25/19 14:00 06/25/19 14:00 06/25/19 14:00 06/25/19 14:00 General appearance: Present: no acute distress, well-nourished, obese Results - Labs CBC & Chem 7: 06/24/19 17:40 06/25/19 15:07 Labs: Laboratory Last Values WBC 10.5 K/mm3 (4.5-11.0) 06/24/19 17:40 RBC 4.71 M/mm3 (3.65-5.03) 06/24/19 17:40 Hgb 14.8 gm/dl (10.1-14.3) H 06/24/19 17:40 Hct 42.0 % (30.3-42.9) 06/24/19 17:40 MCV 89 fl (79-97) 06/24/19 17:40 MCH 31 pg (28-32) 06/24/19 17:40 MCHC 35 % (30-34) H 06/24/19 17:40 RDW 12.6 % (13.2-15.2) L 06/24/19 17:40 Plt Count 437 K/mm3 (140-440) 06/24/19 17:40 Lymph % (Auto) 19.5 % (13.4-35.0) 06/24/19 17:40 [place] % (Auto) 2.9 % (0.0-7.3) 06/24/19 17:40 Eos % (Auto) 0.3 % (0.0-4.3) 06/24/19 17:40 Baso % (Auto) 0.7 % (0.0-1.8) 06/24/19 17:40 Lymph # 2.0 K/mm3 (1.2-5.4) 06/24/19 17:40 [place] # 0.3 K/mm3 (0.0-0.8) 06/24/19 17:40 Eos # 0.0 K/mm3 (0.0-0.4) 06/24/19 17:40 Baso # 0.1 K/mm3 (0.0-0.1) 06/24/19 17:40 Seg Neutrophils % 76.6 % (40.0-70.0) H 06/24/19 17:40 Seg Neutrophils # 8.0 K/mm3 (1.8-7.7) H 06/24/19 17:40 PT 12.2 Sec. (12.2-14.9) 06/24/19 17:40 INR 0.90 (0.87-1.13) 06/24/19 17:40 APTT 31.7 Sec. (24.2-36.6) 06/24/19 17:40 Thrombin Time 16.8 Sec. (15.1-19.6) 06/24/19 17:40 Sodium 142 mmol/L (137-145) 06/25/19 05:45 Potassium 2.8 mmol/L (3.6-5.0) L* 06/25/19 05:45 Chloride 102.3 mmol/L (98-107) 06/25/19 05:45 Carbon Dioxide 25 mmol/L (22-30) 06/25/19 05:45 Anion Gap 18 mmol/L 06/25/19 05:45 BUN 45 mg/dL (7-17) H 06/25/19 05:45 Creatinine 2.4 mg/dL (0.7-1.2) H 06/25/19 05:45 Estimated GFR 26 ml/min 06/25/19 05:45 BUN/Creatinine Ratio 19 % 06/25/19 05:45 Glucose 163 mg/dL (65-100) H 06/25/19 07:13 POC Glucose 171 (70-105) H 06/25/19 11:33 Calcium 8.9 mg/dL (8.4-10.2) 06/25/19 05:45 Phosphorus 4.20 mg/dL (2.5-4.5) 06/24/19 22:55 Magnesium 2.50 mg/dL (1.7-2.3) H 06/25/19 07:13 Troponin T 0.010 ng/mL (0.00-0.029) 06/24/19 17:40 Active Medications - Current Medications Current Medications: Generic Name Dose Route Start Last Admin Trade Name Freq PRN Reason Stop Dose Admin Acetaminophen 650 mg 06/25/19 04:20 Tylenol PO Q4H PRN Pain, Mild (1-3) Aspirin 325 mg 06/25/19 10:00 06/25/19 11:16 Aspirin PO 325 mg QDAY CHIDI Administration Bisacodyl 10 mg 06/25/19 04:20 Dulcolax [place] QDAY PRN Constipation Dextrose 0 ml 06/24/19 19:23 D50w (25gm) Syringe IV Q30MIN PRN Hypoglycemia Protocol Heparin Sodium (Porcine) 5,000 unit 06/25/19 06:00 06/25/19 06:00 Heparin SUB-Q Not Given Q8HR CHIDI Insulin Human Regular 100 100 mls @ 1 mls/hr 06/24/19 20:00 06/25/19 11:27 units/ Sodium Chloride IV 0 units/hr TITR CHIDI 0 mls/hr Titration Protocol 1 UNITS/HR Potassium Chloride/Dextrose/Sod Cl 20 meq in 1,000 mls @ 125 mls/hr 06/24/19 22:00 06/25/19 14:39 D5w/0.45% Nacl/Kcl 20 Meq IV 125 mls/hr DIRECT CHIDI Administration Magnesium Hydroxide 30 ml 06/25/19 04:20 Milk Of Magnesia PO Q4H PRN Constipation Metoclopramide HCl 5 mg 06/25/19 04:20 Reglan PO Q6H PRN Nausea And Vomiting Ondansetron HCl 4 mg 06/24/19 21:58 Zofran IV Q8H PRN Nausea And Vomiting Promethazine HCl 25 mg 06/25/19 04:20 Phenergan [place] Q6H PRN Nausea And Vomiting Sodium Chloride 10 ml 06/24/19 22:00 06/25/19 11:17 Sodium Chloride Flush Syringe 10 Ml IV 10 ml BID CHIDI Administration Sodium Chloride 10 ml 06/24/19 21:58 Sodium Chloride Flush Syringe 10 Ml IV PRN PRN LINE FLUSH Nutrition/Malnutrition Assess - Dietary Evaluation Nutrition/Malnutrition Findings: Nutrition Notes Start: 06/25/19 12:32 Freq: Status: Active Protocol: Document 06/25/19 12:32 KS (Rec: 06/25/19 12:33 KS [id number]) Co-Sign 06/25/19 12:32 LP Nutrition Notes Need for Assessment generated from: MD Order,Education Initial or Follow up Brief Note Subjective/Other Information MD consult for diet education. Pt remains in ED. Nutrition Intervention Follow-Up By: 06/28/19 Additional Comments F/U for diet education.
[2019-06-25 15:46] LABS: Calcium 8.6 mg/dL (8.4-10.2)
--- NOTE | 2019-06-25 18:51 | Progress Note ---
Subjective Date of service: 06/25/19 Interval history: the electrolytes show improvement and the potassium is [id number] still feel that the seizyres are triggered by increased blood sugar CT report is same as my real time analysis no eed for L.P. Objective - Vital Sign Vital Signs - 12hr 06/25/19 06/25/19 06/25/19 07:00 08:00 10:08 Temperature Pulse Rate 85 92 H Respiratory 19 15 Rate Blood Pressure 137/88 153/93 175/108 Blood Pressure [Left] O2 Sat by Pulse 94 95 Oximetry 06/25/19 06/25/19 06/25/19 10:58 11:00 12:00 Temperature 97.8 F Pulse Rate 89 94 H Respiratory 17 13 14 Rate Blood Pressure 144/92 168/116 Blood Pressure 156/91 [Left] O2 Sat by Pulse 100 96 Oximetry 06/25/19 06/25/19 06/25/19 13:01 13:06 14:00 Temperature Pulse Rate 101 H 89 Respiratory 15 23 Rate Blood Pressure 131/73 Blood Pressure 140/85 [Left] O2 Sat by Pulse 97 98 Oximetry - Laboratory Findings CBC and BMP: 06/24/19 17:40 06/25/19 15:07 Abnormal Lab Findings: Abnormal Labs 06/24/19 06/24/19 06/24/19 17:40 17:40 19:37 Hgb 14.8 H MCHC 35 H RDW 12.6 L Seg Neutrophils % 76.6 H Seg Neutrophils # 8.0 H Sodium 126 L Potassium 2.9 L* Chloride 79.0 L Carbon Dioxide 18 L BUN 55 H Creatinine 3.1 H Glucose 989 H* 893 H* POC Glucose Calcium Magnesium 06/24/19 06/24/19 06/24/19 19:37 19:37 20:50 Hgb MCHC RDW Seg Neutrophils % Seg Neutrophils # Sodium 126 L 128 L Potassium 3.4 L 3.3 L Chloride 87.5 L 89.9 L Carbon Dioxide 18 L 17 L BUN 54 H 52 H Creatinine 3.0 H 2.8 H Glucose 899 H* 815 H* POC Glucose Calcium 8.3 L Magnesium 2.40 H 06/24/19 06/24/19 06/25/19 22:55 22:55 00:04 Hgb MCHC RDW Seg Neutrophils % Seg Neutrophils # Sodium 131 L Potassium 2.8 L* Chloride 90.9 L Carbon Dioxide BUN 52 H Creatinine 2.7 H Glucose 773 H* POC Glucose 489 H Calcium Magnesium 2.50 H 06/25/19 06/25/19 06/25/19 00:35 01:07 02:12 Hgb MCHC RDW Seg Neutrophils % Seg Neutrophils # Sodium 136 L Potassium 2.7 L* 2.8 L* Chloride 94.2 L Carbon Dioxide BUN 48 H 46 H Creatinine 2.7 H 2.6 H Glucose 548 H* 348 H POC Glucose 444 H Calcium Magnesium 06/25/19 06/25/19 06/25/19 02:19 03:13 04:28 Hgb MCHC RDW Seg Neutrophils % Seg Neutrophils # Sodium Potassium Chloride Carbon Dioxide BUN Creatinine Glucose POC Glucose 323 H 258 H 473 H Calcium Magnesium 06/25/19 06/25/19 06/25/19 05:33 05:45 06:42 Hgb MCHC RDW Seg Neutrophils % Seg Neutrophils # Sodium Potassium 2.8 L* Chloride Carbon Dioxide BUN 45 H Creatinine 2.4 H Glucose POC Glucose 111 H 117 H Calcium Magnesium 06/25/19 06/25/19 06/25/19 07:13 07:13 07:51 Hgb MCHC RDW Seg Neutrophils % Seg Neutrophils # Sodium Potassium Chloride Carbon Dioxide BUN Creatinine Glucose 163 H POC Glucose 187 H Calcium Magnesium 2.50 H 06/25/19 06/25/19 06/25/19 09:26 11:33 15:07 Hgb MCHC RDW Seg Neutrophils % Seg Neutrophils # Sodium Potassium Chloride Carbon Dioxide 21 L BUN 35 H Creatinine 2.3 H Glucose 294 H POC Glucose 185 H 171 H Calcium Magnesium
[2019-06-25] MEDS: INSULIN REGULAR, HUMAN 100 UNITS/1 ML SUB-Q SCH (22:00)
[2019-06-26] MEDS: HEPARIN 5,000 UNIT/1 ML VIAL SUB-Q SCH ×2 (06:00→06:17)
[2019-06-26] MEDS: D5W/0.45% NACL/KCL 20 MEQ 20 MEQ/1,000 ML BAG IV SCH (06:31)
[2019-06-26] MEDS: INSULIN REGULAR, HUMAN 100 UNITS/1 ML SUB-Q SCH ×2 (08:41→12:19)
[2019-06-26] MEDS ORDERED: INSULIN REGULAR, HUMAN 100 UNITS/1 ML SUB-Q SCH (09:00)
[2019-06-26] MEDS: ASPIRIN 325 MG TAB PO SCH (09:11)
[2019-06-26] MEDS ORDERED: INSULIN NPH/REGULAR 70/30 INJ SUB-Q SCH (10:00)
[2019-06-26] MEDS ORDERED: hydrALAZINE 25 MG TAB PO SCH (10:00)
[2019-06-26] MEDS ORDERED: amLODIPine 10 MG TAB PO SCH (10:00)
[2019-06-26] MEDS: cloNIDine 0.1 MG TAB PO SCH ×2 (10:28→10:29)
--- NOTE | 2019-06-26 10:50 | Progress Note ---
Subjective Date of service: 06/26/19 Interval history: seizure control has been good since potassium corrected and the blodd sugar is less than 400 plan w/u monitor response to meds at this point Objective - Vital Sign Vital Signs - 12hr 06/26/19 06/26/19 06/26/19 00:23 04:14 10:28 Temperature 97.9 F Pulse Rate 92 H 92 H Respiratory 20 20 Rate Blood Pressure 173/107 177/92 O2 Sat by Pulse 98 Oximetry 06/26/19 06/26/19 10:29 10:41 Temperature Pulse Rate 92 H 92 H Respiratory Rate Blood Pressure 177/102 177/92 O2 Sat by Pulse Oximetry - Laboratory Findings CBC and BMP: 06/24/19 17:40 06/25/19 15:07 Abnormal Lab Findings: Abnormal Labs 06/24/19 06/24/19 06/24/19 17:40 17:40 19:37 Hgb 14.8 H MCHC 35 H RDW 12.6 L Seg Neutrophils % 76.6 H Seg Neutrophils # 8.0 H Sodium 126 L Potassium 2.9 L* Chloride 79.0 L Carbon Dioxide 18 L BUN 55 H Creatinine 3.1 H Glucose 989 H* 893 H* POC Glucose Calcium Magnesium 06/24/19 06/24/19 06/24/19 19:37 19:37 20:50 Hgb MCHC RDW Seg Neutrophils % Seg Neutrophils # Sodium 126 L 128 L Potassium 3.4 L 3.3 L Chloride 87.5 L 89.9 L Carbon Dioxide 18 L 17 L BUN 54 H 52 H Creatinine 3.0 H 2.8 H Glucose 899 H* 815 H* POC Glucose Calcium 8.3 L Magnesium 2.40 H 06/24/19 06/24/19 06/25/19 22:55 22:55 00:04 Hgb MCHC RDW Seg Neutrophils % Seg Neutrophils # Sodium 131 L Potassium 2.8 L* Chloride 90.9 L Carbon Dioxide BUN 52 H Creatinine 2.7 H Glucose 773 H* POC Glucose 489 H Calcium Magnesium 2.50 H 06/25/19 06/25/19 06/25/19 00:35 01:07 02:12 Hgb MCHC RDW Seg Neutrophils % Seg Neutrophils # Sodium 136 L Potassium 2.7 L* 2.8 L* Chloride 94.2 L Carbon Dioxide BUN 48 H 46 H Creatinine 2.7 H 2.6 H Glucose 548 H* 348 H POC Glucose 444 H Calcium Magnesium 06/25/19 06/25/19 06/25/19 02:19 03:13 04:28 Hgb MCHC RDW Seg Neutrophils % Seg Neutrophils # Sodium Potassium Chloride Carbon Dioxide BUN Creatinine Glucose POC Glucose 323 H 258 H 473 H Calcium Magnesium 06/25/19 06/25/19 06/25/19 05:33 05:45 06:42 Hgb MCHC RDW Seg Neutrophils % Seg Neutrophils # Sodium Potassium 2.8 L* Chloride Carbon Dioxide BUN 45 H Creatinine 2.4 H Glucose POC Glucose 111 H 117 H Calcium Magnesium 06/25/19 06/25/19 06/25/19 07:13 07:13 07:51 Hgb MCHC RDW Seg Neutrophils % Seg Neutrophils # Sodium Potassium Chloride Carbon Dioxide BUN Creatinine Glucose 163 H POC Glucose 187 H Calcium Magnesium 2.50 H 06/25/19 06/25/19 06/25/19 09:26 11:33 15:07 Hgb MCHC RDW Seg Neutrophils % Seg Neutrophils # Sodium Potassium Chloride Carbon Dioxide 21 L BUN 35 H Creatinine 2.3 H Glucose 294 H POC Glucose 185 H 171 H Calcium Magnesium 06/25/19 06/26/19 21:00 08:14 Hgb MCHC RDW Seg Neutrophils % Seg Neutrophils # Sodium Potassium Chloride Carbon Dioxide BUN Creatinine Glucose POC Glucose 261 H 378 H Calcium Magnesium
--- NOTE | 2019-06-26 11:04 | Discharge Summary ---
Providers - Providers Date of Admission: 06/24/19 21:18 Attending physician: ANETTE KHANNA MD 06/24/19 21:59 Consult to Dietitian/Nutrition [CONS] Routine Physician Instructions: Reason For Exam: Reason for Consult: Diet education 06/25/19 04:20 Occupational Therapy Evaluate and Treat [CONS] Routine Comment: Reason For Exam: Neuro deficits Physical Therapy Evaluation and Treat [CONS] Routine Comment: Reason For Exam: Neuro deficits 06/25/19 04:22 Consult to Physician [CONS] Routine Comment: Consulting Provider: ALEXSANDER SYLVESTER Physician Instructions: Reason For Exam: seizure like activity 06/25/19 15:31 Consult to Physician [CONS] Routine Comment: Consulting Provider: CLEMENCIA BALDWIN Physician Instructions: Reason For Exam: ERENDIRA Primary care physician: DRAG CAR RACER Hospitalization Reason for admission: SEIZURE Condition: Stable Hospital course: 48-year-old female with known history of diabetes mellitus, hypertension and history of CVA in the past was brought into the emergency room by EMS having had seizure-like activity today. Patient has no known history of seizure disorder. Upon arrival in the emergency room was said to have had another seizure and was loaded with Cerebyx. Patient also had elevated blood pressure and a code stroke was called. Teleneurologist was consulted who recommended a full stroke work-up. However during the course of the evaluation the emergency room, blood sugar was said to be quite elevated. seizure-like activity was said to be probably secondary to the hyperglycemia. Initial blood sugar while in the emergency room was in the 900s. She has denied any headache or dizziness, no chest pain or shortness of breath, no fever or chills, no nausea vomiting, no urinary or fecal incontinence. * Imaging studies negative for CVA * Toxic Encephalopathy secondary to Hyperglycemia and now back to baseline * Advised [place] law about seizure and she verablized understanding, also spoke to on patients permission. Patient states she does not drive or operate any machinery * Patient states she is aware of baseline renal issues but not sure her numbers Diabetic hyperosmolar nonketotic state Seizure likely secondary to hyperglycemia ERENDIRA with possible underlying CKD unknown baseline possible vasomotor nephropathy with underlying diabetic nephropathy Hypertension Metabolic acidosis Toxic Metabolic Encephalopathy Disposition: - TO HOME OR SELFCARE Time spent for discharge: 35 MINS Core Measure Documentation - Palliative Care Palliative Care/ Comfort Measures: Not Applicable - Core Measures Any of the following diagnoses?: none Exam - Physical Exam Narrative exam: VITAL SIGNS: Reviewed. GENERAL: The patient appears normally developed, Vital signs as documented. HEAD: No signs of head trauma. EYES: Pupils are equal. Extraocular motions intact. EARS: Hearing grossly intact. MOUTH: Oropharynx is normal. NECK: No adenopathy, no JVD. CHEST: Chest with clear breath sounds bilaterally. No wheezes, rales, or rhonchi. CARDIAC: Regular rate and rhythm. S1 and S2, without murmurs, gallops, or rubs. VASCULAR: No Edema. Peripheral pulses normal and equal in all extremities. ABDOMEN: Soft, non tender and non distended. No rebound or guarding, and no masses palpated. Bowel Sounds normal. MUSCULOSKELETAL: Good range of motion of all major joints. Extremities without clubbing, cyanosis or edema. NEUROLOGIC EXAM: Alert and oriented x 3 No focal sensory or strength deficits. Speech normal. Follows commands. PSYCHIATRIC: Mood normal. SKIN: detial exam as documented in skin assessment - Constitutional Vitals: Temp Pulse Resp BP Pulse Ox 97.9 F 92 H 20 177/92 98 06/26/19 04:14 06/26/19 10:41 06/26/19 04:14 06/26/19 10:41 06/26/19 04:14 Plan Activity: no driving until cleared by PCP, fall precautions Diet: low fat, diabetic Special Instructions: record daily weights, record daily BP diary, record blood sugar diary Follow up with: PRIMARY CAREMD [Primary Care Provider] - 3-5 Days IRINA ROMANO MD [Staff Physician] - 7 Days CLEMENCIA BALDWIN MD [Staff Physician] - 7 Days Prescriptions: amLODIPine 10 mg PO DAILY #30 tablet hydrALAZINE [Apresoline TAB] 50 mg PO Q8HR #90 tablet cloNIDine [Catapres] 0.1 mg PO Q12HR #60 tablet labetaloL [Labetalol 200mg TAB] 300 mg PO TID #90 tablet AtorvaSTATin [Lipitor] 80 mg PO DAILY #60 tab Insulin NPH/Regular [NovoLIN 70/30] 42 unit SUB-Q BIDDIAB 30 Days #100 units Insulin Regular, Human [Novolin R] See Protocol SC ACHS 30 Days #100 vial
--- NOTE | 2019-06-26 11:28 | Consultation ---
History of Present Illness - Reason for Consult Consult date: 06/26/19 chronic renal failure - History of Present Illness patient with CKD secondary to HTN and DM was admitted for possible stroke vs. seizure activity, CT and MRI of the head were negative for acute ischemia but was noted to have severe elevated blood sugar with elevated blood pressure, she was also noted to have elevated creatinine and nephrology consult was requested Past History Past Medical History: diabetes, hypertension, stroke Past Surgical History: Other (Breast reduction) Social history: no significant social history Medications and Allergies Allergies Allergy/AdvReac Type Severity Reaction Status Date / Time No Known Allergies Allergy Verified 09/27/17 16:32 Home Medications Medication Instructions Recorded Confirmed Last Taken Type AtorvaSTATin [Lipitor] 80 mg PO DAILY #60 tab 06/26/19 Unknown Rx Insulin NPH/Regular [NovoLIN 70/30] 42 unit SUB-Q BIDDIAB 30 Days #100 06/26/19 Unknown Rx units Insulin Regular, Human [Novolin R] See Protocol SC ACHS 30 Days #100 06/26/19 Unknown Rx vial amLODIPine 10 mg PO DAILY #30 tablet 06/26/19 Unknown Rx cloNIDine [Catapres] 0.1 mg PO Q12HR #60 tablet 06/26/19 Unknown Rx hydrALAZINE [Apresoline TAB] 50 mg PO Q8HR #90 tablet 06/26/19 Unknown Rx labetaloL [Labetalol 200mg TAB] 300 mg PO TID #90 tablet 06/26/19 Unknown Rx Active Meds: Active Medications Acetaminophen (Tylenol) 650 mg PO Q4H PRN PRN Reason: Pain, Mild (1-3) Amlodipine Besylate (Amlodipine) 10 mg PO DAILY [facility] Last Admin: 06/26/19 10:28 Dose: 10 mg Documented by: Aspirin (Aspirin) 325 mg PO QDAY [facility] Last Admin: 06/26/19 09:11 Dose: 325 mg Documented by: Atorvastatin Calcium (Lipitor) 80 mg PO QHS [facility] Bisacodyl (Dulcolax) 10 mg TN QDAY PRN PRN Reason: Constipation Clonidine HCl (Catapres) 0.1 mg PO Q12HR [facility] Last Admin: 06/26/19 10:29 Dose: 0.1 mg Documented by: Dextrose (D50w (25gm) Syringe) 0 ml IV Q30MIN PRN; Protocol PRN Reason: Hypoglycemia Heparin Sodium (Porcine) (Heparin) 5,000 unit SUB-Q Q8HR [facility] Last Admin: 06/26/19 06:17 Dose: 5,000 unit Documented by: Hydralazine HCl (Apresoline) 50 mg PO Q8HR [facility] Last Admin: 06/26/19 10:28 Dose: 50 mg Documented by: Insulin Human Isoph/Insulin Regular (Humulin 70/30) 42 unit SUB-Q BIDDIAB [facility] Last Admin: 06/26/19 10:27 Dose: 42 unit Documented by: Insulin Human Regular (Humulin R) 0 units SUB-Q ACHS [facility]; Protocol Last Admin: 06/26/19 08:41 Dose: 10 units Documented by: Labetalol HCl (Labetalol) 300 mg PO TID [facility] Last Admin: 06/26/19 10:41 Dose: 300 mg Documented by: Magnesium Hydroxide (Milk Of Magnesia) 30 ml PO Q4H PRN PRN Reason: Constipation Metoclopramide HCl (Reglan) 5 mg PO Q6H PRN PRN Reason: Nausea And Vomiting Ondansetron HCl (Zofran) 4 mg IV Q8H PRN PRN Reason: Nausea And Vomiting Promethazine HCl (Phenergan) 25 mg TN Q6H PRN PRN Reason: Nausea And Vomiting Sodium Chloride (Sodium Chloride Flush Syringe 10 Ml) 10 ml IV BID [facility] Last Admin: 06/26/19 09:13 Dose: 10 ml Documented by: Sodium Chloride (Sodium Chloride Flush Syringe 10 Ml) 10 ml IV PRN PRN PRN Reason: LINE FLUSH Review of Systems All systems: negative (mild weakness) Exam - Vital Signs Vital signs: Vital Signs BP Pulse Ox 154/92 88 06/24/19 17:39 06/24/19 17:39 - General Appearance General appearance: well-developed, well-nourished, obese EENT: ATNC, PERRL, mucous membranes moist Neck: Present: neck supple Respiratory: Clear to Ascultation Heart: regular, S1S2 Gastrointestinal: Present: normoactive bowel sounds, hypoactive bowel sounds. Absent: tenderness, distended Integumentary: no rash, warm and dry Neurologic: no focal deficit, no asterixis, alert and oriented x3 Musculoskeletal: Present: other (no edema in BLE) Psychiatric: mood/affect appropriate, cooperative Results - Lab Results 06/24/19 17:40 06/25/19 15:07 Most recent lab results Calcium 8.6 mg/dL (8.4-10.2) 06/25/19 15:07 Phosphorus 4.20 mg/dL (2.5-4.5) 06/24/19 22:55 Magnesium 2.50 mg/dL (1.7-2.3) H 06/25/19 07:13 Assessment and Plan Diabetic hyperosmolar nonketotic state Seizure likely secondary to hyperglycemia ERENDIRA with possible underlying CKD due to diabetic nephropathy Hypertension Metabolic acidosis - baseline Cr ~ 2, mild worsening this admisison possible prerenal azotemia vs. progression of CKD - currently kidney function and electrolytes are stable - OK to be discharged from renal standpoint, to be followed in my office upon discharge - renally dose meds - avoid nephrotxins Bob Henriquez MD [phone]
[2019-06-26 16:24] VITALS: BP 140/78
--- NOTE | 2019-06-26 17:48 | Ultrasound Report ---
ULTRASOUND RENAL INDICATION: ERENDIRA. COMPARISON: No relevant prior imaging study available. FINDINGS: RIGHT KIDNEY: Size: 9.7 cm. Echogenicity: Echogenic. Cortical thickness: Normal. Hydronephrosis: None. Cyst or mass: None. Stones: None. LEFT KIDNEY: Size: 9.7 cm. Echogenicity: Echogenic. Cortical thickness: Normal. Hydronephrosis: None. Cyst or mass: None. Stones: None. Urinary Bladder: No significant abnormality. Free Fluid: None. Additional Findings: None. IMPRESSION 1. Echogenic kidneys characteristic for medical renal disease. No hydronephrosis.. Signer Name: Calin Hudson MD Signed: 06/26/2019 5:44 PM Workstation Name: [id number]
== END 2019-06-26 17:03 | disposition home or self-care (01) | DRG 637 ==
LOC: ED 17:14 → CC1 21:18 → 3A 06-25 18:13
PROVIDERS: ADMIT Internal Medicine Geriatric Medicine; ATTEND Internal Medicine
DX: E11.00 Type 2 diabetes mellitus with hyperosmolarity without nonketotic hyperglycemic-hyperosmolar coma (NKHHC) (principal); G92 Toxic encephalopathy; N17.0 Acute kidney failure with tubular necrosis; E87.1 Hypo-osmolality and hyponatremia; R56.9 Unspecified convulsions; N18.9 Chronic kidney disease, unspecified; E11.22 Type 2 diabetes mellitus with diabetic chronic kidney disease; I12.9 Hypertensive chronic kidney disease with stage 1 through stage 4 chronic kidney disease, or unspecified chronic kidney disease; Z79.4 Long term (current) use of insulin
CPT/HCPCS: 36415; 70450; 70551; 76770; 80048; 82947; 82962; 83735; 84100; 84484; 85025; 85610; 85670; 85730; 93005; 93010; 93306; 93880; G0378; J1644; J1815; J2060; J3475; J3480; J7030; Q2009